=== PATIENT | female | born 1980 | race Two or more races ===

== ENCOUNTER 2023-10-27 07:35 | Outpatient (AMB) | payer OTHER, SELFPAY ==
--- NOTE | 2023-10-27 07:43 | MHC.PC.OV ---
Vital Signs 10/27/23 07:49 Height 5 ft 2 in Weight 197 lb BMI 36.0 BP 138/90 H Blood Pressure Location Lt brachial Position Sitting Pulse 79 Pulse Source Pulse Oximeter Pulse Oximetry (%) 99 Oxygen Delivery Method Room Air Intake Visit Reasons: New patient-requesting physical Intake Note: Pt is her today as a New Patient to est care/PE Allergies No Known Allergies Allergy (Verified 10/27/23 07:49) Tobacco use date assessed: 10/27/23 Dental Screening Dental Screen Date: 10/27/23 Did you have a dental visit in the last 12 months?: No Was dental information given to patient?: Patient has dentist HPI New patient-requesting physical HPI Details Pt presents for PE. Pt moved for [place] 5 years ago. She complains of feeling tired, overwhelmed at work at [employer], because of increased responsibilities since she moved to [facility]. patient reports sleeping only 3 hours at night going to bed at 11 at night and getting up at 2 a.m. for a morning shift. She complains of bilateral knee pain and stiffness and lower extremities fatigue when walking longer distance. Patient denies chronic back pain. Patient denies suicidal ideation and is not interested in taking medications for depression. PFSH Family History (Updated 10/27/23 @ 08:14 by Krysten Gage MD) Father Hx of CABG, Onset Age: 55 Maternal Grandfather Mental health disorder Maternal Grandmother Mental health disorder Mother Breast CA, Onset Age: 60 Social History (Updated 10/27/23 @ 08:15 by Krysten Gage MD) Household Members Other:: , works at [employer] Housing: Apartment Patient Tobacco Use Status: Never used Tobacco e-Cigarette/Vaping Use: Never Used service: No Current occupational status: employed Cognitive needs: No Hearing needs: No Vision needs: Yes Questionnaire PHQ-9 Over the last 2 weeks, how often have you been bothered by any of the following problems? 1. Little interest or pleasure in doing things: several days 2. Feeling down, depressed, or hopeless: more than half the days 3. Trouble falling or staying asleep, or sleeping too much: more than half the days 4. Feeling tired or having little energy: nearly every day 5. Poor appetite or overeating: more than half the days 6. Feeling bad about yourself - or that you are a failure or have let yourself or your family down: more than half the days 7. Trouble concentrating on things, such as reading the newspaper or watching television: more than half the days 8. Moving or speaking so slowly that other people could have noticed. Or the opposite - being so fidgety or restless that you have been moving around a lot more than usual: nearly every day 9. Thoughts that you would be better off or of hurting yourself in some way: not at all Total score: 17 Depression Screening Interpretation: Positive Depression Screening Done: Yes 24575 - PHQ-9 Billing: Yes Source: Developed by Drs. Neri Persaud, Sindhu Austin, Darrell Serrano and colleagues, with an educational carmen from [employer]. Thrive Questionnaire Date Thrive assessed: 10/27/23 I am a: Patient What is your living situation today?: I have a steady place to live Within the past 12 months, did the food you bought not last and you didn't have the money to get more?: Often true Within the past 12 months, did you worry whether your food would run out before you got money to buy more?: Often true Do you have trouble paying for medicines?: No Do you have trouble getting transportation to medical appointments?: No Do you have trouble paying your heating and electricity bill?: No Do you have trouble taking care of your child, family member or friend?: No Do you have trouble with day-to-day activities such as bathing, preparing meals, shopping, managing finances, etc.?: No Are you currently unemployed and looking for a job?: No Are you interested in more education?: No AUDIT C Alcohol Use Questionnaire (AUDIT-C) 1. How often do you have a drink containing alcohol?: Never Total Score: 0 CLAY-7 AMB Questionnaire CLAY-7 Date CLAY - 7 assessed: 10/27/23 Feeling nervous, anxious, or on edge: 3 = Nearly every day Not being able to stop or control worryin = Nearly every day Worrying too much about different things: 3 = Nearly every day Trouble relaxin = Nearly every day Being so restless that it is hard to sit still: 3 = Nearly every day Becoming easily annoyed or irritable: 3 = Nearly every day Feeling afraid as if something awful might happen: 3 = Nearly every day Total CLAY-7 score (0-4 normal; 5-9 mild; 10-14 moderate; 15-21 severe): 21 Source: Developed by Drs. Neri Persaud, Sindhu Austin, Darrell Serrano and colleagues, with an educational carmen from [employer]. Review of Systems Const All systems reviewed & are unremarkable except as noted in HPI and below Reports no additional complaints Eyes Reports no additional complaints ENT Reports no additional complaints Card Reports no additional complaints Resp Reports no additional complaints GI Reports no additional complaints Reports no additional complaints Physical exam (Primary Care) Vital Signs: Last Vital Signs Pulse 79 10/27/23 07:49 BP 136/90 H 10/27/23 07:49 Pulse Ox 99 10/27/23 07:49 Oxygen Delivery Method Room Air 10/27/23 07:49 BMI result Body Mass Index 36.0 Tobacco/Smoking Status: Tobacco use Status Tobacco use date assessed 10/27/23 10/27/23 07:54 Patient Tobacco Use Status Never used Tobacco 10/27/23 08:15 e-Cigarette/Vaping Use Never Used 10/27/23 08:15 PHQ-9: PHQ-9 Score PHQ-9: Total score 17 10/27/23 08:53 Depression Screening Interpretation: Positive Thrive Assessment: Date of Thrive Assessment Date Thrive assessed 10/27/23 10/27/23 08:53 Const General: no acute distress HENMT Head: Yes normal to inspection Ears: hearing grossly normal bilaterally Mouth: Normal oral and palatal mucosa present Eyes General: appearance normal, both eyes and all related structures Neck Neck: Yes no lymphadenopathy and Yes supple Resp Effort & Inspection: normal respiratory effort Auscultation: clear to auscultation bilaterally Cardio Rhythm: regular rhythm Heart sounds: S1 normal heart sound present and S2 normal heart sound present GI Inspection: Yes normal to inspection Palpation (GI): Soft to palpation Percussion: Yes normal to percussion Auscultation: normal bowel sounds Extrem Other: Slightly decreased range of motion and crepitus of both knees, no joint swelling erythema warmth General: Yes no clubbing, cyanosis or edema Assessment and Plan Assessment & Plan (1) Knee pain, bilateral: Code(s): M25.561 - Pain in right knee; M25.562 - Pain in left knee Plan: Obtain x-rays of both knees, patient was advised to increase physical activity (2) Annual physical exam: Code(s): Z00.00 - Encounter for general adult medical examination without abnormal findings Plan: Well-balanced diet regular physical activity discussed with the patient she will be referred for screening mammogram and have a fasting blood work (3) Glaucoma: Comment: ophthalmology Dr. Juan Daniel Quispe Code(s): H40.9 - Unspecified glaucoma (4) Fatigue: Code(s): R53.83 - Other fatigue Plan: Check blood work including TSH iron studies CBC comprehensive panel and lipid profile (5) Overweight: Code(s): E66.3 - Overweight Plan: Weight loss discussed with the patient (6) Hypertension: Code(s): I10 - Essential (primary) hypertension Plan: Start 5 mg of olmesartan follow-up in 6 weeks (7) Anxiety and depression: Code(s): F41.9 - Anxiety disorder, unspecified; F32.A - Depression, unspecified Plan: Stress management, sleep hygiene, increase regular physical activity discussed with the patient. She declined taking medications and will be referred to counseling (8) GERD (gastroesophageal reflux disease): Code(s): K21.9 - Gastro-esophageal reflux disease without esophagitis Plan: Anti GERD diet discussed with the pt, famotidine will be tried for 1 month Orders: Orders Comprehensive Bliss. Panel Fast Today H40.9 - Unspecified glaucoma, Z00.00 - Encounter for general adult medical examination without abnormal findings IRON PROFILE Today H40.9 - Unspecified glaucoma, Z00.00 - Encounter for general adult medical examination without abnormal findings MM screening mammo BI Today M25.561 - Pain in right knee, M25.562 - Pain in left knee, Z12.31 - Encounter for screening mammogram for malignant neoplasm of breast Complete Blood Count Auto Diff Today H40.9 - Unspecified glaucoma, Z00.00 - Encounter for general adult medical examination without abnormal findings Lipid Panel Today H40.9 - Unspecified glaucoma, Z00.00 - Encounter for general adult medical examination without abnormal findings TSH reflex Free T4 Today H40.9 - Unspecified glaucoma, Z00.00 - Encounter for general adult medical examination without abnormal findings C Reactive Protein Today H40.9 - Unspecified glaucoma, Z00.00 - Encounter for general adult medical examination without abnormal findings Rheumatoid Factor Today H40.9 - Unspecified glaucoma, Z00.00 - Encounter for general adult medical examination without abnormal findings Medications: New olmesartan 5 mg PO DAILY 90 tabs 0RF famotidine (Pepcid) 20 mg PO DAILY 90 tabs 0RF Coding Level of Care Code New Pt Prev Care 40-64y(58745) Diagnoses Knee pain, bilateral M25.561; M25.562 Annual physical exam Z00.00 Glaucoma H40.9 Fatigue R53.83 Overweight E66.3 Hypertension I10 Anxiety and depression F41.9; F32.A GERD (gastroesophageal reflux disease) K21.9
[2023-10-27 07:49] VITALS: BP 138/90; PULSE 79; O2SAT 99; BMI 36.0
== END 2023-10-27 08:54 | disposition home or self-care (01) ==
PROVIDERS: PCP Internal Medicine; Visit Provider Internal Medicine
DX: M25.561 Pain in right knee (principal); M25.562 Pain in left knee; Z00.00 Encounter for general adult medical examination without abnormal findings; H40.9 Unspecified glaucoma; R53.83 Other fatigue; E66.3 Overweight; I10 Essential (primary) hypertension; F41.9 Anxiety disorder, unspecified; F32.A Depression, unspecified; K21.9 Gastro-esophageal reflux disease without esophagitis
CPT/HCPCS: 99386

== ENCOUNTER 2023-10-27 08:56 | Outpatient (REF) | payer OTHER, SELFPAY ==
--- NOTE | ~2023-10-27 | XR_ITS ---
EXAMINATION: XR KNEE, RIGHT CLINICAL INFORMATION: Right knee pain COMPARISON: None available. TECHNIQUE: AP and lateral views of the left knee. FINDINGS: BONES: Bony structures are intact. Small osteophytes are seen in the right lateral femoral condyle, right patellar articular border. Sclerotic bone island is seen in proximal right tibial shaft. There is no focal bone destruction or periosteal reaction seen. JOINTS: Alignment of joints is normal. There is severe decrease in medial compartment right knee joint space. SOFT TISSUE: Right suprapatellar fat pad shows increase in density. No radiopaque foreign body or abnormal air collection is seen. XR/XR knee RT 2V IMPRESSION: 1. Tricompartmental osteoarthritis of right knee, most severe in the medial right tibiofemoral joint is seen. 2. Right knee effusion is present. 3. No fracture or dislocation or signs of osteomyelitis are found.
--- NOTE | ~2023-10-27 | XR_ITS ---
EXAMINATION: XR KNEE, LEFT CLINICAL INFORMATION: Left knee pain COMPARISON: None available. TECHNIQUE: AP and lateral views of the left knee. FINDINGS: BONES: Bony structures are intact. Small sharp osteophytes are seen in the left medial and lateral tibial plateaus, superior left patella. Anterior suprapatellar traction spur is present. There is no focal bone destruction or periosteal reaction seen. JOINTS: Alignment of joints is normal. There is severe decrease in medial compartment left knee joint space. SOFT TISSUE: Left suprapatellar fat pad shows increase in density. No radiopaque foreign body or abnormal air collection is seen. XR/XR knee LT 2V IMPRESSION: 1. Tricompartmental osteoarthritis of left knee, most severe in the medial left tibiofemoral joint is seen. 2. Left knee effusion is present. 3. No fracture or dislocation or signs of osteomyelitis are found.
[2023-10-27 11:23] LABS: MANUAL DIFF FLAG NO
[2023-10-27 11:32] LABS: Basophils Absolute Auto 0.1 X10*3/uL (0.0-0.2); Basophils Percent Auto 0.5 % (0-2); Eosinophils Absolute Auto 0.2 X10*3/uL (0.0-0.4); Eosinophils Percent Auto 1.7 % (0-4); Hematocrit 47.4 % (37.0-47.0); Hemoglobin 15.5 g/dl (12.0-16.0); Imm Gran Abs Auto 0.05 X10*3/uL (0.00-0.03); Imm Gran Pct Auto 0.5 % (0.0-0.4); Lymphocytes Absolute Auto 3.3 X10*3/uL (1.2-4.9); Lymphocytes Percent Auto 31.7 % (20-40); Mean Corpuscular HGB Conc 32.7 g/dl (31.0-35.0); Mean Corpuscular Hemoglobin 27.8 pg (27.0-33.0); Mean Corpuscular Volume 85.1 fL (80.0-98.0); Mean Platelet Volume 10.9 fL (9.4-12.3); Monocytes Absolute Auto 0.6 X10*3/uL (0.1-1.2); Neutrophils Absolute Auto 6.1 x10*3/uL (2.0-8.3); Neutrophils Percent Auto 59.6 % (45-73); Platelet Count 350 X10*3/uL (160-400); Red Blood Count 5.57 X10*6/uL (4.20-5.50); Red Cell Distribution Width 12.4 % (11.0-16.0); White Blood Count 10.3 X10*3/uL (4.8-10.8)
[2023-10-27 11:46] LABS: Rheumatoid Factor < 13.0 IU/mL (<15.0)
[2023-10-27 12:04] LABS: Alanine Aminotransferase 20 U/L (0-31); Albumin Level 4.1 g/dL (3.5-5.0); Alkaline Phosphatase 105 U/L (39-117); Anion Gap 17 (12-20); Aspartate Amino Transferase 19 U/L (5-31); Bilirubin Total 0.4 mg/dL (0.0-1.0); Blood Urea Nitrogen 12 mg/dL (9-16); C Reactive Protein 0.97 mg/dL (< or = 0.50); Calcium 9.9 mg/dL (8.4-10.2); Carbon Dioxide 24 mmol/L (22-29); Chloride 102 mmol/L (96-108); Cholesterol 179 mg/dL (<200); Estimated Glomerular Filt Rate > 60; Glucose Fasting 264 mg/dL (60-99); HDL Cholesterol 43 mg/dL (>40); Iron 93 mcg/dL (30-160); LDL Cholesterol Calculated 118 mg/dL (<100); Percent Iron Saturation 33 % (15-50); Potassium 4.8 mmol/L (3.3-5.1); Sodium 138 mmol/L (135-145); Total Iron Binding Capacity 278 mcg/dL (228-428); Total Protein 8.7 g/dL (6.5-8.0); Triglycerides 94 mg/dL (<150); Unsaturated Iron Binding 185 ug/dL
[2023-10-27 12:24] LABS: TSH reflex Free T4 0.75 uIU/mL (0.32-4.0)
== END 2023-10-27 08:57 | disposition home or self-care (01) ==
LOC: HO.HMGCX 08:56
PROVIDERS: PCP Internal Medicine; Visit Provider Internal Medicine
DX: Z00.00 Encounter for general adult medical examination without abnormal findings (principal); M17.0 Bilateral primary osteoarthritis of knee
CPT/HCPCS: 36415; 73560; 80053; 80061; 83540; 84443; 85025; 86140; 86431

== ENCOUNTER 2023-11-08 08:02 | Outpatient (REF) | payer OTHER, SELFPAY ==
[2023-11-08 12:05] LABS: Glucose Fasting 254 mg/dL (60-99)
[2023-11-08 12:22] LABS: Estimated Average Glucose 266 mg/dL; Hemoglobin A1c % 10.9 % (<6.0)
== END 2023-11-08 08:03 | disposition home or self-care (01) ==
LOC: HO.HMGCLDS 08:02
PROVIDERS: PCP Internal Medicine; Visit Provider Internal Medicine
DX: R73.9 Hyperglycemia, unspecified (principal)
CPT/HCPCS: 36415; 82947; 83036

== ENCOUNTER 2023-11-28 08:10 | Outpatient (AMB) | payer OTHER, SELFPAY ==
[2023-11-28 08:15] VITALS: BP 134/82; PULSE 82; TEMP 36.6; BMI 36.0
--- NOTE | 2023-11-28 08:15 | AM.OFFWIN_ITS ---
Intake Vital Signs 11/28/23 08:15 11/28/23 08:44 Height 5 ft 2 in Weight 197 lb BMI 36.0 BP 134/82 Blood Pressure Location Rt brachial Position Sitting Pulse 82 Pulse Source Pulse Oximeter Temp 97.9 F Temp Source Oral Pulse Oximetry (%) 95 Oxygen Delivery Method Room Air Intake Visit Reasons: EP,+covid (11/26/22) fever ([phone]) Intake Note: pt is here for c/o body aches, fever, difficulty breathing since monday, covid positive on 11/26/23 unable to get 02 stats due to nails Patient Tobacco Use Status: Never used Tobacco Allergies No Known Allergies Allergy (Verified 11/28/23 08:46) Medication List - Last Reconciled 11/28/23 by KELSIE Velásquez blood sugar diagnostic ([employer] Verio test strips) Test blood sugar twice a day blood-glucose meter ([employer] Verio Flex Meter) As directed famotidine (Pepcid) 20 mg PO DAILY lancets ([employer] Plus Lancet) test blood sugar twice a day metformin ER 750 mg PO DAILY olmesartan 5 mg PO DAILY Do you need a note to return to daycare/school/sports/work: Yes HPI HPI Comments History of Present Illness Details Patient is a 43-year-old female in today for sick visit. She states that 2 days prior to visit she tested positive within at home COVID test. She offer symptoms of sore throat, dry cough, headache, and malaise. She has used [id number] Mucinex with some affect. Denies chest pain, shortness a breath, dizziness, numbness, nausea, vomiting, diarrhea. PFSH Family History (Updated 10/27/23 @ 08:14 by Krysten Gage MD) Father Hx of CABG, Onset Age: 55 Maternal Grandfather Mental health disorder Maternal Grandmother Mental health disorder Mother Breast CA, Onset Age: 60 Social History (Updated 10/27/23 @ 08:15 by Krysten Gage MD) Household Members Other:: , works at [employer] Housing: Apartment Patient Tobacco Use Status: Never used Tobacco e-Cigarette/Vaping Use: Never Used service: No Current occupational status: employed Cognitive needs: No Hearing needs: No Vision needs: Yes Review of Systems Const Details: Constitutional : No Weight loss, No Fever, Admits Chills, No Fatigue, Admits some Malaise ENT/Mouth : Admits sore throat, No Rhinorrhea Eyes: No Eye Pain, No Swelling, No Redness Cardiovascular : No Chest Pain, No SOB, No Dyspnea on Exertion, No Orthopnea, No Edema, No Palpitations Respiratory : Admits Cough, No Sputum, No Wheezing Gastrointestinal : No Nausea, No Vomiting, No Diarrhea, No Constipation, No abdominal Pain, No Hematochezia, No Melena Neuro : No Weakness, No Numbness, No Dizziness, No Headache Psych : No Anxiety/Panic, No Depression All other systems reviewed and are negative Physical Exam Vital Signs: BMI result Body Mass Index 36.0 Vital signs have been reviewed stable Const Other: Appearance: Alert.? Oriented X3.? No acute distress.? Head: Normocephalic, atraumatic, no step-offs or deformities Eyes: Pupils equal, round and reactive to light.? ENT: Pharynx normal.?TM itnact and pearly finley. Neck: Normal inspection.? Neck supple.? CVS: Normal heart rate and rhythm.? Pulses normal.? Respiratory: No respiratory distress.? Breath sounds normal.? Abdomen: Soft and nontender.? Skin: Skin warm and dry.? Normal skin color.? Normal skin turgor.? Neuro: Oriented X 3.? No motor deficit.? No sensory deficit. CN 2-12 intact Assessment & Plan Assessment & Plan (1) Upper respiratory infection: Comment: Will give patient prednisone, albuterol and benzonatate to be taken as prescribed. Patient has been educated on side effects of these medication. Patient has been educated on signs of worsening symptoms and when to return to the walk-in or when to present to the ER. Code(s): J06.9 - Acute upper respiratory infection, unspecified Qualifiers: URI type: unspecified viral URI Qualified Code(s): J06.9 - Acute upper respiratory infection, unspecified Plan: Take your medications as prescribed. If you were prescribed antibiotics today, it is important that you take your medication to their entirety, do not skip any doses, do not finish them early. Follow-up with your primary care provider this week. Return to the emergency department with new or worsening symptoms. Such as fevers, chills, chest pain, shortness of breath, nausea, vomiting, dizziness, headache, vision changes, lethargy In case of emergency call 911 Plan Follow-up with PCP Coding Level of Care Code Est Pt Level 2 (73613) Diagnoses Viral upper respiratory tract infection J06.9 URI type: unspecified viral URI Time Spent (min) 20
[2023-11-28 08:44] VITALS: O2SAT 95
== END 2023-11-28 09:49 | disposition home or self-care (01) ==
PROVIDERS: PCP Internal Medicine; Visit Provider Nurse Practitioner Primary Care
DX: J06.9 Acute upper respiratory infection, unspecified (principal)
CPT/HCPCS: 99213

== ENCOUNTER 2023-12-08 10:01 | Outpatient (AMB) | payer OTHER, SELFPAY ==
[2023-12-08 10:05] VITALS: BP 124/78; PULSE 90; TEMP 36.4; O2SAT 99; BMI 35.5
--- NOTE | 2023-12-08 10:05 | A.OFFPC_ITS ---
Vital Signs 12/08/23 10:05 Height 5 ft 2 in Weight 194 lb BMI 35.5 BP 124/78 Blood Pressure Location Rt brachial Position Sitting Pulse 90 Pulse Source Pulse Oximeter Temp 97.6 F Temp Source Oral Pulse Oximetry (%) 99 Oxygen Delivery Method Room Air Intake Visit Reasons: 6 week follow up Intake Note: Pt is here today for 6 weeks follow up visit. Pt states that she has been sick. Pt c/o nausea, vomiting diarrhea, chills and weakness since yesterday. Allergies metformin Adverse Reaction (Intermediate, Verified 12/08/23 11:13) Abdominal Pain Medication List - Last Reconciled 12/08/23 by Krysten Gage MD albuterol sulfate 90 mcg/actuation 1 puff inhalation QID PRN benzonatate 100 mg PO BID PRN blood sugar diagnostic (StylendaTouch Verio test strips) Test blood sugar twice a day blood-glucose meter ([employer] Verio Flex Meter) As directed famotidine (Pepcid) 20 mg PO DAILY lancets (StylendaTouch Delica Plus Lancet) test blood sugar twice a day metformin ER 750 mg PO DAILY olmesartan 5 mg PO DAILY Tobacco use date assessed: 12/08/23 Dental Screening Dental Screen Date: 12/08/23 Did you have a dental visit in the last 12 months?: No Did you have a dental problem in the last 6 months where you did not have access to dental care?: No Was dental information given to patient?: Patient declined HPI 6 week follow up HPI Details Pt presents for diarrhea, nausea, vomiting, chills for 2 days. Patient reports high glucose readings over 300 for the last 2 days.. Patient was seen in in walk in last week with URI and was prescribed prednisone for dry cough. Patient noticed a very high glucose readings on prednisone and stopped taking it. She has been taking metformin but reports intermittent diarrhea and stomach upset. Patient has been following ADA diet and has been working with the nurse navigator to learn about diabetes. [facility] Family History (Updated 10/27/23 @ 08:14 by Krysten Gage MD) Father Hx of CABG, Onset Age: 55 Maternal Grandfather Mental health disorder Maternal Grandmother Mental health disorder Mother Breast CA, Onset Age: 60 Social History (Updated 10/27/23 @ 08:15 by Krysten Gage MD) Household Members Other:: , works at [employer] Housing: Apartment Patient Tobacco Use Status: Never used Tobacco e-Cigarette/Vaping Use: Never Used service: No Current occupational status: employed Cognitive needs: No Hearing needs: No Vision needs: Yes Questionnaire PHQ-9 Over the last 2 weeks, how often have you been bothered by any of the following problems? 1. Little interest or pleasure in doing things: more than half the days 2. Feeling down, depressed, or hopeless: more than half the days 3. Trouble falling or staying asleep, or sleeping too much: several days 4. Feeling tired or having little energy: several days 5. Poor appetite or overeating: more than half the days 6. Feeling bad about yourself - or that you are a failure or have let yourself or your family down: more than half the days 7. Trouble concentrating on things, such as reading the newspaper or watching television: more than half the days 8. Moving or speaking so slowly that other people could have noticed. Or the opposite - being so fidgety or restless that you have been moving around a lot more than usual: more than half the days 9. Thoughts that you would be better off or of hurting yourself in some way: not at all Total score: 14 Depression Screening Interpretation: Positive Depression Screening Done: Yes Source: Developed by Drs. Neri Persaud, Sindhu Austin, Darrell Serrano and colleagues, with an educational carmen from [employer]. Thrive Questionnaire Date Thrive assessed: 12/08/23 I am a: Patient What is your living situation today?: I have a steady place to live Within the past 12 months, did the food you bought not last and you didn't have the money to get more?: Sometimes True Within the past 12 months, did you worry whether your food would run out before you got money to buy more?: Often true Do you have trouble paying for medicines?: Yes Do you have trouble getting transportation to medical appointments?: No Do you have trouble paying your heating and electricity bill?: Yes Do you have trouble taking care of your child, family member or friend?: No Do you have trouble with day-to-day activities such as bathing, preparing meals, shopping, managing finances, etc.?: No Are you currently unemployed and looking for a job?: No Are you interested in more education?: No THRIVE Score: 3 AUDIT C Alcohol Use Questionnaire (AUDIT-C) 1. How often do you have a drink containing alcohol?: Never 3. How often do you have six or more drinks on one occasion?: Never Total Score: 0 CLAY-7 AMB Questionnaire CLAY-7 Date CLAY - 7 assessed: 12/08/23 Feeling nervous, anxious, or on edge: 2 = More than half the days Not being able to stop or control worryin = More than half the days Worrying too much about different things: 2 = More than half the days Trouble relaxin = More than half the days Being so restless that it is hard to sit still: 1 = Several days Becoming easily annoyed or irritable: 1 = Several days Feeling afraid as if something awful might happen: 1 = Several days Total CLAY-7 score (0-4 normal; 5-9 mild; 10-14 moderate; 15-21 severe): 11 Source: Developed by Drs. Neri Persaud, Sindhu Austin, Darrell Serrano and colleagues, with an educational carmen from [employer]. Review of Systems Const All systems reviewed & are unremarkable except as noted in HPI and below Reports no additional complaints Eyes Reports no additional complaints ENT Reports no additional complaints Card Reports no additional complaints Resp Reports no additional complaints GI Reports no additional complaints Reports no additional complaints Physical exam (Primary Care) Vital Signs: Last Vital Signs Temp 97.6 F 12/08/23 10:05 Pulse 90 12/08/23 10:05 BP 124/78 12/08/23 10:05 Pulse Ox 99 12/08/23 10:05 Oxygen Delivery Method Room Air 12/08/23 10:05 BMI result Body Mass Index 35.5 Tobacco/Smoking Status: Tobacco use Status Tobacco use date assessed 12/08/23 12/08/23 10:13 Patient Tobacco Use Status Never used Tobacco 12/08/23 10:13 e-Cigarette/Vaping Use Never Used 12/08/23 10:06 Depression Screening Interpretation: Positive Thrive Assessment: Date of Thrive Assessment Date Thrive assessed 10/27/23 12/08/23 10:06 Const General: no acute distress HENMT Head: Yes normal to inspection Neck Neck: Yes no lymphadenopathy Resp Effort & Inspection: normal respiratory effort Auscultation: clear to auscultation bilaterally Cardio Rhythm: regular rhythm Heart sounds: S1 normal heart sound present and S2 normal heart sound present GI Inspection: Yes normal to inspection Palpation (GI): Soft to palpation, Tenderness to palpation present (GI) in the epigastrum and No Rebound tenderness present Percussion: Yes normal to percussion Auscultation: normal bowel sounds Assessment and Plan Assessment & Plan (1) DM type 2 (diabetes mellitus, type 2): Comment: Patient can not tolerate metformin Code(s): E11.9 - Type 2 diabetes mellitus without complications Plan: Patient was advised to stop metformin and start 10 units of Lantus. ADA diet and monitor her blood glucose at least 3 times a day with Maggie 3 was recommended. Patient will report her readings within the next week for any insulin adjustment as necessary. She will follow-up with the nurse navigator. Patient will return in 1 month (2) Diarrhea: Code(s): R19.7 - Diarrhea, unspecified Plan: Supportive care discussed with the patient. Check basic metabolic panel and CBC Orders: Orders Basic Metabolic Panel Today E11.9 - Type 2 diabetes mellitus without complications Complete Blood Count Auto Diff Today E11.9 - Type 2 diabetes mellitus without complications Medications: New blood-glucose sensor (FreeStyle Maggie 3 Sensor device) As directed 2 ea 4RF Lantus Solostar U-100 Insulin (insulin glargine) 10 units (0.1 mL) subcut QPM 15 mL 3RF NS Discontinued blood-glucose meter (OneTouch Verio Flex Meter) Discontinued Reason: Doctor's Order As directed 1 ea 0RF E11.9 - Type 2 diabetes mellitus without complications blood sugar diagnostic (OneTouch Verio test strips) Discontinued Reason: Doctor's Order Test blood sugar twice a day 200 ea 3RF E11.9 - Type 2 diabetes mellitus without complications prednisone Discontinued Reason: Doctor's Order 20 mg PO BID 10 tabs 0RF Coding Level of Care Code Est Pt Level 3 (52710) Diagnoses DM type 2 (diabetes mellitus, type 2) E11.9 Diarrhea R19.7
== END 2023-12-08 12:10 | disposition home or self-care (01) ==
PROVIDERS: PCP Internal Medicine; Visit Provider Internal Medicine
DX: E11.9 Type 2 diabetes mellitus without complications (principal); R19.7 Diarrhea, unspecified
CPT/HCPCS: 99213

== ENCOUNTER 2023-12-08 11:10 | Outpatient (REF) | payer OTHER, SELFPAY ==
[2023-12-08 13:15] LABS: MANUAL DIFF FLAG NO
[2023-12-08 13:45] LABS: Basophils Percent Auto 0.3 % (0-2); Eosinophils Absolute Auto 0.2 X10*3/uL (0.0-0.4); Eosinophils Percent Auto 1.7 % (0-4); Hemoglobin 15.2 g/dl (12.0-16.0); Imm Gran Abs Auto 0.05 X10*3/uL (0.00-0.03); Imm Gran Pct Auto 0.4 % (0.0-0.4); Lymphocytes Absolute Auto 3.6 X10*3/uL (1.2-4.9); Mean Corpuscular HGB Conc 32.3 g/dl (31.0-35.0); Mean Corpuscular Hemoglobin 27.5 pg (27.0-33.0); Mean Corpuscular Volume 85.1 fL (80.0-98.0); Mean Platelet Volume 10.9 fL (9.4-12.3); Monocytes Absolute Auto 0.9 X10*3/uL (0.1-1.2); Monocytes Percent Auto 6.8 % (2-11); Neutrophils Absolute Auto 7.7 x10*3/uL (2.0-8.3); Neutrophils Percent Auto 61.8 % (45-73); Platelet Count 369 X10*3/uL (160-400); Red Blood Count 5.52 X10*6/uL (4.20-5.50); Red Cell Distribution Width 12.5 % (11.0-16.0); White Blood Count 12.5 X10*3/uL (4.8-10.8)
[2023-12-08 14:16] LABS: Anion Gap 15 (12-20); Blood Urea Nitrogen 11 mg/dL (9-16); Calcium 9.3 mg/dL (8.4-10.2); Carbon Dioxide 25 mmol/L (22-29); Chloride 100 mmol/L (96-108); Estimated Glomerular Filt Rate > 60; Glucose Random 257 mg/dL (60-115); Potassium 3.4 mmol/L (3.3-5.1); Sodium 137 mmol/L (135-145)
== END 2023-12-08 11:11 | disposition home or self-care (01) ==
LOC: HO.HMGCLDS 11:10
PROVIDERS: PCP Internal Medicine; Visit Provider Internal Medicine
DX: E11.9 Type 2 diabetes mellitus without complications (principal)
CPT/HCPCS: 36415; 80048; 85025

== ENCOUNTER 2024-01-04 13:22 | Outpatient (AMB) | payer OTHER, SELFPAY ==
[2024-01-04 13:45] VITALS: BP 126/70; PULSE 72; O2SAT 97; BMI 35.7
--- NOTE | 2024-01-04 13:45 | MHC.PC.OV ---
Vital Signs 01/04/24 13:45 Height 5 ft 2 in Weight 195 lb BMI 35.7 BP 126/70 Blood Pressure Location Rt brachial Position Sitting Pulse 72 Pulse Source Pulse Oximeter Pulse Oximetry (%) 97 Oxygen Delivery Method Room Air Intake Visit Reasons: 1 month follow up DM Intake Note: Pt is here today for 1 month follow up visit on DM. Allergies metformin Adverse Reaction (Intermediate, Verified 01/04/24 13:53) Abdominal Pain Medication List - Last Reconciled 01/04/24 by Krysten Gage MD albuterol sulfate 90 mcg/actuation 1 puff inhalation QID PRN benzonatate 100 mg PO BID PRN blood-glucose sensor (FreeStyle Maggie 3 Sensor device) As directed famotidine (Pepcid) 20 mg PO DAILY lancets (Results ScorecardTouch Delica Plus Lancet) test blood sugar twice a day Lantus Solostar U-100 Insulin (insulin glargine) 10 units (0.1 mL) subcut QPM NS metformin ER 750 mg PO DAILY olmesartan 5 mg PO DAILY OneTouch Ultra Test (blood sugar diagnostic) tid NS pen needle, diabetic Use to inject insulin once a day Tobacco use date assessed: 12/08/23 HPI 1 month follow up DM HPI Details Patient presents for the follow-up of type 2 diabetes. She has been monitoring her blood glucose 3 times a day before breakfast between 150-202 hours after a meal over 200s. She has been following ADA diet to best of her efford. Patient does not exercise because of chronic bilateral knee pain and stiffness. She took 10 units of Lantus but developed low blood glucose and has not been taking insulin. Has been tolerating metformin XR 750 mg daily without side effects. PFSH Family History Father Hx of CABG, Onset Age: 55 Maternal Grandfather Mental health disorder Maternal Grandmother Mental health disorder Mother Breast CA, Onset Age: 60 Social History Household Members Other:: , works at [employer] Housing: Apartment Patient Tobacco Use Status: Never used Tobacco e-Cigarette/Vaping Use: Never Used service: No Current occupational status: employed Cognitive needs: No Hearing needs: No Vision needs: Yes Questionnaire Thrive Questionnaire Date Thrive assessed: 12/08/23 CLAY-7 AMB Questionnaire CLAY-7 Date CLAY - 7 assessed: 12/08/23 Source: Developed by Drs. Neri Persaud, Sindhu Austin, Darrell Serrano and colleagues, with an educational carmen from [employer]. Review of Systems Const All systems reviewed & are unremarkable except as noted in HPI and below Reports no additional complaints Eyes Reports no additional complaints ENT Reports no additional complaints Card Reports no additional complaints Resp Reports no additional complaints GI Reports no additional complaints Reports no additional complaints Physical exam (Primary Care) Vital Signs: Last Vital Signs Pulse 72 01/04/24 13:45 BP 126/70 01/04/24 13:45 Pulse Ox 97 01/04/24 13:45 Oxygen Delivery Method Room Air 01/04/24 13:45 BMI result Body Mass Index 35.7 Tobacco/Smoking Status: Tobacco use Status Tobacco use date assessed 12/08/23 01/04/24 13:56 Patient Tobacco Use Status Never used Tobacco 01/04/24 13:56 e-Cigarette/Vaping Use Never Used 01/04/24 13:56 Thrive Assessment: Date of Thrive Assessment Date Thrive assessed 12/08/23 01/04/24 13:56 Const General: no acute distress HENMT Head: Yes normal to inspection Ears: hearing grossly normal bilaterally Face and sinus: Yes normal facial exam Mouth: Normal oral and palatal mucosa present Eyes General: appearance normal, both eyes and all related structures Neck Neck: Yes no lymphadenopathy and Yes supple Resp Effort & Inspection: normal respiratory effort Auscultation: clear to auscultation bilaterally Cardio Rhythm: regular rhythm Heart sounds: S1 normal heart sound present and S2 normal heart sound present GI Inspection: Yes normal to inspection Palpation (GI): Soft to palpation Percussion: Yes normal to percussion Auscultation: normal bowel sounds Extrem Other: Decreased range of motion and stiffness on both knees right more than left no joint tenderness erythema or warmth Assessment and Plan Assessment & Plan (1) Bilateral primary osteoarthritis of knee: Comment: X-ray showed advanced osteoarthritis of both knees Code(s): M17.0 - Bilateral primary osteoarthritis of knee Plan: Patient was advised to try physical therapy and stationary bike exercises, she will be referred to rod bending machine operator for Synvisc injections (2) DM type 2 (diabetes mellitus, type 2): Code(s): E11.9 - Type 2 diabetes mellitus without complications Plan: ADA diet increase physical activity weight loss discussed with the patient. She will increase metformin to 750 mg twice a day and try 6 units of Lantus insulin. Patient was advised to continue monitoring her blood glucose at least 3 times a day and she will follow-up in 1 month. Patient will be referred to call center rn (3) Hypertension: Code(s): I10 - Essential (primary) hypertension Plan: Continue olmesartan (4) Overweight: Code(s): E66.3 - Overweight Plan: Weight loss discussed with the patient Orders: Orders PT Evaluation and Treatment Today M17.0 - Bilateral primary osteoarthritis of knee Complete Blood Count Auto Diff 1 Month E11.9 - Type 2 diabetes mellitus without complications, I10 - Essential (primary) hypertension Comprehensive [place]. Panel Fast 1 Month E11.9 - Type 2 diabetes mellitus without complications, I10 - Essential (primary) hypertension Hemoglobin A1c 1 Month E11.9 - Type 2 diabetes mellitus without complications, I10 - Essential (primary) hypertension Referrals Administrative Assistant Front Desk Nutrition Referral E11.9 - Type 2 diabetes mellitus without complications Rheumatology Referral M17.0 - Bilateral primary osteoarthritis of knee Medications: New OneTouch Ultra Test (blood sugar diagnostic) tid 100 ea 3RF NS Refilled metformin ER 750 mg PO DAILY 180 tabs 1RF olmesartan 5 mg PO DAILY 90 tabs 3RF Discontinued blood-glucose sensor (FreeStyle Maggie 3 Sensor device) Discontinued Reason: Doctor's Order As directed 2 ea 4RF benzonatate Discontinued Reason: Doctor's Order 100 mg PO BID PRN 30 caps 0RF cough Coding Level of Care Code Est Pt Level 4 (09520) Diagnoses Bilateral primary osteoarthritis of knee M17.0 DM type 2 (diabetes mellitus, type 2) E11.9 Hypertension I10 Overweight E66.3
== END 2024-01-04 15:06 | disposition home or self-care (01) ==
PROVIDERS: PCP Internal Medicine; Visit Provider Internal Medicine
DX: M17.0 Bilateral primary osteoarthritis of knee (principal); E11.9 Type 2 diabetes mellitus without complications; I10 Essential (primary) hypertension; E66.3 Overweight
CPT/HCPCS: 99214

== ENCOUNTER 2024-01-04 15:27 | Outpatient (REF) | payer OTHER, SELFPAY ==
--- NOTE | ~2024-01-04 | MM_ITS ---
EXAMINATION: MM SCREENING DIGITAL BREAST TOMOSYNTHESIS, BILATERAL CLINICAL INFORMATION: Screening. Asymptomatic. COMPARISON: Mammography: This is a baseline mammogram TECHNIQUE: Digital breast tomosynthesis is performed in both the craniocaudal and mediolateral oblique views along with computer-aided detection (CAD). Synthesized 2D images are generated from the tomosynthesis. FINDINGS: There are scattered areas of fibroglandular density (ACR BI-RADS breast composition Category b). There are no significant masses, abnormal calcifications, or other abnormalities. MM/MM tomosynthesis screening BI IMPRESSION: No mammographic evidence of malignancy. ASSESSMENT: BI-RADS BI-RADS 1 - Negative RECOMMENDATION: Routine annual mammography screening. 1 year F/U This examination should not preclude the clinical evaluation of a suspicious palpable abnormality. This patient's information was entered into a reminder system with a target due date for their next mammogram.
== END 2024-01-04 15:28 | disposition home or self-care (01) ==
LOC: HO.MAMMO 15:27
PROVIDERS: PCP Internal Medicine; Visit Provider Internal Medicine
DX: Z12.31 Encounter for screening mammogram for malignant neoplasm of breast (principal)
CPT/HCPCS: 77063; 77067

== ENCOUNTER → 2024-01-04 15:45 | Outpatient (BNV) | payer OTHER, SELFPAY | PROVIDERS: PCP Internal Medicine; Visit Provider Radiology Diagnostic Radiology | DX: Z12.31 Encounter for screening mammogram for malignant neoplasm of breast (principal) | CPT/HCPCS: 77063; 77067 ==

== ENCOUNTER 2024-02-08 09:39 | Outpatient (AMB) | payer OTHER, SELFPAY ==
--- NOTE | 2024-02-08 09:46 | A.OFFVIS_ITS ---
Intake VS Expanded 02/08/24 09:47 02/19/24 20:51 Height 5 ft 2 in 5 ft 2 in Weight 190 lb 11.198 oz 191 lb BMI 34.9 34.9 Intake Visit Reasons: T2DM/CONFIRMED Allergies metformin Adverse Reaction (Intermediate, Verified 02/15/24 11:49) Abdominal Pain HPI Nutrition Presentation Details Pt presents for MNT for T2DM. Pt was referred by Dr. Gage, primary care provider Pt presents with during this appointment Pt reports following a strict diet when initially diagnosed and now finds herself liberalizing the diet. EFZ-Iasikgu-Om.Jeor Equation Height 5 ft 2 in Weight 191 lb Resting Metabolic Rate 1467.35 Calculated Activity Level Sedentary Calories Needed to Maintain Weight 1760.82 Diagnosis Nutrition problem #1 food nutri know defi As related to (etiology) #1 diagnosis As evidenced by (sign/symptom) #1 knowledge deficit of diet Most Recent Diabetes Results: Creatinine 0.74 mg/dL (0.5-1.4) 02/08/24 Blood Urea Nitrogen 14 mg/dL (9-16) 02/08/24 Sodium 137 mmol/L (135-145) 02/08/24 Potassium 3.9 mmol/L (3.3-5.1) 02/08/24 Chloride 105 mmol/L (96-108) 02/08/24 Carbon Dioxide 26 mmol/L (22-29) 02/08/24 Calcium 9.6 mg/dL (8.4-10.2) 02/08/24 AST 19 U/L (5-31) 02/08/24 ALT 19 U/L (0-31) 02/08/24 Total Protein 8.2 g/dL (6.5-8.0) H 02/08/24 Albumin 4.0 g/dL (3.5-5.0) 02/08/24 PFSH Medical History Bilateral foot pain Bilateral swelling of feet Bilateral hand pain Swelling of hand Surgical History No pertinent past surgical history Family History Father Hx of CABG, Onset Age: 55 Maternal Grandfather Mental health disorder Maternal Grandmother Mental health disorder Mother Breast CA, Onset Age: 60 Other Hx of autoimmune disorder Social History Household Members Other:: , works at [employer] Housing: Apartment Patient Tobacco Use Status: Never used Tobacco e-Cigarette/Vaping Use: Never Used service: No Current occupational status: employed Current occupation: [employer] Cognitive needs: No Hearing needs: No Vision needs: Yes Assessment & Plan Assessment & Plan (1) DM type 2 (diabetes mellitus, type 2): Code(s): E11.9 - Type 2 diabetes mellitus without complications Plan: Wt: 87 Kg ( 01/2024 ) Est kcal needs as per MSJ: 1700 (40% carb, 30% protein/fat) Est fluid needs as per 25-30 ml/d: 2600 Est prot per day as per 1 g/kg bw: 87 Recommend fiber intake : 8-10 g per day and gradually increase to 25-28 g per day for women and 35-38 g for men or as tolerated Recommend sodium intake per day : less than 2000 mg Educated patient on: ( R = reviewed V = verbalizes understanding N/R = needs review N/A = not applicable * Food sources of carbohydrate, adequate serving sizes and its role in various health conditions: R * Differences between complex carbohydrates a simple carbohydrates, role of fiber in diet: R * Lean protein sources of foods: R V * Differences between types of fats and role in diet (mono on saturated fat fatty acids, saturated fatty acids, trans fats): N/R * Food sources of sodium in salt and healthy modifications for heart health in kidney health: NR * Vitamins and minerals: N/R * Healthy plate method concept: R V * Physical activity: Benefits a precaution: R V * Hypoglycemia protocol (rule of 15): R * Dietary prevention of Hyperglycemia: R Patient Instructions: Reduce your total carb following healthy plat method to 45-60 g at meal time and 0-20 g as snack Choose complex carbohydrates, keep hydrated by choosing water with mealssnacks Coding Level of Care Code Nutr Indiv Intake (84960) Diagnoses DM type 2 (diabetes mellitus, type 2) E11.9 Time Spent (min) 30
[2024-02-08 09:47] VITALS: BMI 34.9
[2024-02-19 20:51] VITALS: BMI 34.9
== END 2024-02-08 10:33 | disposition home or self-care (01) ==
PROVIDERS: PCP Internal Medicine; Visit Provider Dietitian, Registered
DX: E11.9 Type 2 diabetes mellitus without complications (principal)

== ENCOUNTER 2024-02-08 09:39 | Outpatient (REF) | payer OTHER, SELFPAY ==
--- NOTE | ~2024-02-08 | XR_ITS ---
STUDY: Lateral hands INDICATION: Soft tissue disorder COMPARISON: None TECHNIQUE: 3 view each hand FINDINGS: Right hand: Interphalangeal joint space narrowings, most pronounced with spurring and sclerosis at the third and fifth DIPs with associated soft tissue prominence about the joint spaces. Mildly erosive changes also appear to be present at the third DIP. No fracture or dislocation. Left hand: Mild interphalangeal joint space narrowings, most pronounced third DIP where there is mild soft tissue prominence. No fracture or dislocation. XR/XR hand LT min 3V IMPRESSION: Degenerative type changes bilateral hands, most pronounced right third DIP where mild erosive component appears to be present.
--- NOTE | ~2024-02-08 | XR_ITS ---
STUDY: Bilateral feet INDICATION: Soft tissue disorders. COMPARISON: None TECHNIQUE: 3 view each foot FINDINGS: Right foot: Hammertoe deformities. Mild first MTP degenerative change. Plantar and posterior calcaneal spurring No fracture or dislocation. Left foot: Mild hallux valgus. Mild hammertoe deformities. Mild degenerative change first MTP. Plantar and posterior calcaneal spurring. No fracture or dislocation. XR/XR foot LT min 3V IMPRESSION: No acute bony pathology bilateral feet.
--- NOTE | ~2024-02-08 | XR_ITS ---
STUDY: Lateral hands INDICATION: Soft tissue disorder COMPARISON: None TECHNIQUE: 3 view each hand FINDINGS: Right hand: Interphalangeal joint space narrowings, most pronounced with spurring and sclerosis at the third and fifth DIPs with associated soft tissue prominence about the joint spaces. Mildly erosive changes also appear to be present at the third DIP. No fracture or dislocation. Left hand: Mild interphalangeal joint space narrowings, most pronounced third DIP where there is mild soft tissue prominence. No fracture or dislocation. XR/XR hand RT min 3V IMPRESSION: Degenerative type changes bilateral hands, most pronounced right third DIP where mild erosive component appears to be present.
--- NOTE | ~2024-02-08 | XR_ITS ---
STUDY: Bilateral feet INDICATION: Soft tissue disorders. COMPARISON: None TECHNIQUE: 3 view each foot FINDINGS: Right foot: Hammertoe deformities. Mild first MTP degenerative change. Plantar and posterior calcaneal spurring No fracture or dislocation. Left foot: Mild hallux valgus. Mild hammertoe deformities. Mild degenerative change first MTP. Plantar and posterior calcaneal spurring. No fracture or dislocation. XR/XR foot RT min 3V IMPRESSION: No acute bony pathology bilateral feet.
[2024-02-08 12:42] LABS: MANUAL DIFF FLAG NO
[2024-02-08 14:04] LABS: Basophils Absolute Auto 0.1 X10*3/uL (0.0-0.2); Basophils Percent Auto 0.5 % (0-2); Eosinophils Absolute Auto 0.6 X10*3/uL (0.0-0.4); Eosinophils Percent Auto 5.7 % (0-4); Hematocrit 44.4 % (37.0-47.0); Hemoglobin 14.8 g/dl (12.0-16.0); Imm Gran Abs Auto 0.03 X10*3/uL (0.00-0.03); Imm Gran Pct Auto 0.3 % (0.0-0.4); Lymphocytes Absolute Auto 3.5 X10*3/uL (1.2-4.9); Lymphocytes Percent Auto 36.3 % (20-40); Mean Corpuscular HGB Conc 33.3 g/dl (31.0-35.0); Mean Corpuscular Hemoglobin 27.9 pg (27.0-33.0); Mean Corpuscular Volume 83.8 fL (80.0-98.0); Mean Platelet Volume 10.7 fL (9.4-12.3); Monocytes Absolute Auto 0.6 X10*3/uL (0.1-1.2); Monocytes Percent Auto 5.9 % (2-11); Neutrophils Percent Auto 51.3 % (45-73); Platelet Count 316 X10*3/uL (160-400); Red Cell Distribution Width 12.2 % (11.0-16.0); White Blood Count 9.8 X10*3/uL (4.8-10.8)
[2024-02-08 14:24] LABS: Alanine Aminotransferase 19 U/L (0-31); Alkaline Phosphatase 97 U/L (39-117); Anion Gap 10 (12-20); Aspartate Amino Transferase 19 U/L (5-31); Bilirubin Total 0.3 mg/dL (0.0-1.0); Blood Urea Nitrogen 14 mg/dL (9-16); C Reactive Protein 0.42 mg/dL (< or = 0.50); Calcium 9.6 mg/dL (8.4-10.2); Carbon Dioxide 26 mmol/L (22-29); Chloride 105 mmol/L (96-108); Estimated Glomerular Filt Rate > 60; Glucose Random 191 mg/dL (60-115); Potassium 3.9 mmol/L (3.3-5.1); Sodium 137 mmol/L (135-145); Total Protein 8.2 g/dL (6.5-8.0); Uric Acid 3.4 mg/dL (2.4-5.7)
[2024-02-08 15:20] LABS: Erythrocyte Sedimentation Rate 18 MM/HR (0-20)
[2024-02-09 04:28] LABS: HBS Num1 0.25 mIU/mL (0-7.99); HBc Num1 0.06 S/CO (0.00-0.79); HBsAGNum1 0.31 S/CO (0.00-0.99); Hepatitis A Antibody IgM 0.16 Index (0-0.79); Hepatitis B Core Antibody Nonreactive (Nonreactive); Hepatitis B Surface Antigen Negative (Negative); ~Hepatitis A Antibody IgM Nonreactive (Nonreactive); ~Hepatitis B Surface Antibody NONREACTIVE (Nonreactive); ~Hepatitis C Antibody Nonreactive (Nonreactive)
[2024-02-09 15:38] LABS: Cyclic Citrullinated Peptide <16 UNITS
[2024-02-09 21:34] LABS: Prot Elec - Albumin 4.1 g/dL (3.8-4.8); Prot Elec - Alpha1 0.3 g/dL (0.2-0.3); Prot Elec - Alpha2 0.8 g/dL (0.5-0.9); Prot Elec - Beta 1 0.6 g/dL (0.4-0.6); Prot Elec - Beta 2 0.7 g/dL (0.2-0.5); Prot Elec - Gamma 1.6 g/dL (0.8-1.7)
[2024-02-09 23:08] LABS: Anti DNA DS Antibody <1 IU/mL; Antibody to SS-A Antigen <1.0 NEG AI (<1.0 NEG); Antibody to SS-B Antigen <1.0 NEG AI (<1.0 NEG); SM/Ribonucleoprotein Ab <1.0 NEG AI (<1.0 NEG); Scleroderma 70 Antibody <1.0 NEG AI (<1.0 NEG); Smith Protein <1.0 NEG AI (<1.0 NEG)
[2024-02-10 23:23] LABS: Complement C3 139 mg/dL (83-193)
[2024-02-11 07:12] LABS: TS Negative Control Passed; TS Panel A 0; TS Panel B 1; TS Positive Control Passed; TSpotTB Negative (Negative)
[2024-02-13 09:14] LABS: Anti Nuclear Antibody Screen NEGATIVE (NEGATIVE)
[2024-02-14 12:33] LABS: IgA 735 mg/dL (47-310); IgG 1665 mg/dL (600-1640); IgM 39 mg/dL (50-300)
== END 2024-02-08 09:40 | disposition home or self-care (01) ==
LOC: HO.LAB 09:39
PROVIDERS: Absent Provider Nurse Practitioner Family; PCP Internal Medicine; Visit Provider Dietitian, Registered
DX: M79.672 Pain in left foot (principal); M79.671 Pain in right foot; M79.89 Other specified soft tissue disorders; M79.641 Pain in right hand; M79.642 Pain in left hand; M17.0 Bilateral primary osteoarthritis of knee; E11.9 Type 2 diabetes mellitus without complications
CPT/HCPCS: 36415; 73130; 73630; 80053; 82550; 82784; 84165; 84550; 85025; 85652; 86038; 86140; 86160; 86200; 86225; 86235; 86334; 86481; 86704; 86706; 86709; 86803; 87340; 97802; 99202

== ENCOUNTER 2024-02-08 10:50 | Outpatient (AMB) | payer OTHER, SELFPAY ==
--- NOTE | 2024-02-08 11:09 | MHC.OFFVIS ---
Intake Vital Signs 02/08/24 11:10 Height 5 ft 2 in Weight 192 lb 0.362 oz BMI 35.1 BP 118/80 Blood Pressure Location Rt brachial Position Sitting Respiration 18 Pulse 72 Pulse Source Auscultation Temp 97.2 F Temp Source Skin Intake Visit Reasons: osteoarthritis of knee/CONFIMRED Intake Note: New patient, internally referred, presents to office today for jessenia knee OA. c/o jessenia hand and shoulder pain Pain began approx: 2 years Has tried: Tylenol arthritis Route Clerk Required: Yes Route Clerk Language: Neurosurgery Physician Name: Russell Roy Information Interpreted: clinical only Accompanied by: Significant Other Allergies metformin Adverse Reaction (Intermediate, Verified 02/15/24 11:49) Abdominal Pain HPI HPI Comments History of Present Illness Details Ms. Lara 43 yoF, accompanied by her , presents for evaluating of osteoarthritis in the right knee based on recent xray. She was referred by PCP. She has a history of T2DM, Asthma and GERD. The knee pain has been present for about 2 years. She has done not done PT was prescribed Tylenol arthritis during this time. She shares that the pain in the knee can be so bad that she cannot walk or it feels like it will collapse. She says her left knee is OK and that imaging shows OA. I observed that her hands are red and swollen and she says that they have been like that for almost as long. She cannot hold things and her helps her to get address etc because they hurt. She has pain all over her body and says she was diagnosed with fibromyalgia. She says she is always told that whatever she feels is associated with the FM and it gets frustrating to hear. She denies rash or hair loss, uveitis, UTI, rashes, GI and Urinary signs for CTD. She has no issues in the sun and, no history of blood clots, miscarriages or raynaud's. She denies dry eyes and mouth, no mouth or nose sores. [facility] Medical History Bilateral foot pain Bilateral swelling of feet Bilateral hand pain Swelling of hand Surgical History No pertinent past surgical history Family History Father Hx of CABG, Onset Age: 55 Maternal Grandfather Mental health disorder Maternal Grandmother Mental health disorder Mother Breast CA, Onset Age: 60 Other Hx of autoimmune disorder Social History Household Members Other:: , works at [employer] Housing: Apartment Patient Tobacco Use Status: Never used Tobacco e-Cigarette/Vaping Use: Never Used service: No Current occupational status: employed Current occupation: [employer] Cognitive needs: No Hearing needs: No Vision needs: Yes Female Reproductive History Menstrual Total pregnancies: 0 Review of Systems Const All systems reviewed & are unremarkable except as noted in HPI and below Physical Exam Vital Signs: Last Vital Signs Temp 97.2 F 02/08/24 11:10 Pulse 72 02/08/24 11:10 Resp 18 02/08/24 11:10 BP 118/80 02/08/24 11:10 BMI result Body Mass Index 35.1 APPEARANCE: Patient in no acute distress EYES no redness, normal EARS:? External ear normal. NOSE/SINUS:? Airflow through both nares, no nasal discharge, no bleeding THROAT:? Oral mucosa moist, no ulcerations NECK:? No thyromegaly or masses, no adenopathy, trachea midline. HEART:? Regular rhythm, S1-S2 heard, no murmurs, rubs or gallops. LUNG:? Clear to auscultation EXTREMITIES:? No edema, no calf tenderness, normal peripheral pulses. NEURO:? Oriented and alert x3.? No focal weakness.? Reflexes symmetric.? antalgic gait, slow SKIN:? There are no skin lesions evident. No objective signs of Raynaud's phenomenon. JOINT EXAM: Cervical Spine:.? Full range of motion without pain; no tenderness. Thoracic Spine:.? No scoliosis.? mild tenderness on palpation. Lumbar Spine:.? Alignment normal.? Full range of motion with mild discomfort, tenderness. Chest Wall:.? No tenderness, swelling, increased warmth or erythema. Hands:.? Decreased range of motion with diffused tenderness, swelling, increased warmth or erythema. Able to make a fist with much discomfort and has decreased administrator strength. Wrists:.? Normal pain-free range of motion with tenderness but no swelling, increased warmth or erythema. Elbows:. Normal pain-free range of motion with tenderness but no swelling, increased warmth or erythema. Shoulders:.?? Full range of motion without pain. No tenderness, weakness, swelling, increased warmth or erythema. Hips:.? Full range of motion with mild pain. Hip bursa:.? bilateral moderate tenderness. Knees:.?? Normal range of motion with discomfort to right knee and tenderness at joint line but, swelling, increased warmth or erythema.? There is no effusion or crepitation Ankles:.? Normal pain-free range of motion with tenderness at lateral and medial maleolous but swelling, increased warmth or erythema. tenderness to achilles bilaterally. Feet:.? Normal pain-free range of motion with tenderness at bilat MTP but no swelling, increased warmth or erythema. Tender points:? No tenderness to digital palpation at the occiput, trapezius, second rib, lateral epicondyle, knees, greater trochanter and gluteal area bilaterally. Results Reviewed Results Reviewed: EXAMINATION: XR KNEE, RIGHT CLINICAL INFORMATION: Right knee pain COMPARISON: None available. TECHNIQUE: AP and lateral views of the left knee. FINDINGS: BONES: Bony structures are intact. Small osteophytes are seen in the right lateral femoral condyle, right patellar articular border. Sclerotic bone island is seen in proximal right tibial shaft. There is no focal bone destruction or periosteal reaction seen. JOINTS: Alignment of joints is normal. There is severe decrease in medial compartment right knee joint space. SOFT TISSUE: Right suprapatellar fat pad shows increase in density. No radiopaque foreign body or abnormal air collection is seen. XR/XR knee RT 2V IMPRESSION: 1. Tricompartmental osteoarthritis of right knee, most severe in the medial right tibiofemoral joint is seen. 2. Right knee effusion is present. 3. No fracture or dislocation or signs of osteomyelitis are found. TECHNIQUE: AP and lateral views of the left knee. FINDINGS: BONES: Bony structures are intact. Small sharp osteophytes are seen in the left medial and lateral tibial plateaus, superior left patella. Anterior suprapatellar traction spur is present. There is no focal bone destruction or periosteal reaction seen. JOINTS: Alignment of joints is normal. There is severe decrease in medial compartment left knee joint space. SOFT TISSUE: Left suprapatellar fat pad shows increase in density. No radiopaque foreign body or abnormal air collection is seen. XR/XR knee LT 2V IMPRESSION: 1. Tricompartmental osteoarthritis of left knee, most severe in the medial left tibiofemoral joint is seen. 2. Left knee effusion is present. 3. No fracture or dislocation or signs of osteomyelitis are found. 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 She has synovitis on PE to some PIP joints and recent Xrays I ordered identify erosive changes to some PIP joints. Additionally, give the moderate to Advanced arthritic findings for her knees suggest that an inflammatory process is driving the OA. The knee xray from 10/2023 shows advanced OA and fat pad density which can suggest inflammation. I have also ordered labs for CTD and inflammatory serology. I started her on a course of prednisone with the goal to relieve some of her symptoms. Will consider to start DMARD therapy at next visit. I spent 45 minutes reviewing history, evaluating patient and documenting f/u 3 weeks. Orders: Orders XR foot LT min 3V 02/08/24 M79.641 - Pain in right hand, M79.642 - Pain in left hand, M79.671 - Pain in right foot, M79.672 - Pain in left foot, M79.89 - Other specified soft tissue disorders XR foot RT min 3V 02/08/24 M79.641 - Pain in right hand, M79.642 - Pain in left hand, M79.671 - Pain in right foot, M79.672 - Pain in left foot, M79.89 - Other specified soft tissue disorders XR hand LT min 3V 02/08/24 M79.641 - Pain in right hand, M79.642 - Pain in left hand, M79.671 - Pain in right foot, M79.672 - Pain in left foot, M79.89 - Other specified soft tissue disorders XR hand RT min 3V 02/08/24 M79.641 - Pain in right hand, M79.642 - Pain in left hand, M79.671 - Pain in right foot, M79.672 - Pain in left foot, M79.89 - Other specified soft tissue disorders Complement C3 02/08/24 M79.641 - Pain in right hand, M79.642 - Pain in left hand, M79.671 - Pain in right foot, M79.672 - Pain in left foot, M79.89 - Other specified soft tissue disorders Anti Extractable Nuclear Ag 02/08/24 M79.641 - Pain in right hand, M79.642 - Pain in left hand, M79.671 - Pain in right foot, M79.672 - Pain in left foot, M79.89 - Other specified soft tissue disorders Erythrocyte Sedimentation Rate 02/08/24 M79.641 - Pain in right hand, M79.642 - Pain in left hand, M79.671 - Pain in right foot, M79.672 - Pain in left foot, M79.89 - Other specified soft tissue disorders Hepatitis A,B,C Profile 02/08/24 M79.641 - Pain in right hand, M79.642 - Pain in left hand, M79.671 - Pain in right foot, M79.672 - Pain in left foot, M79.89 - Other specified soft tissue disorders Sjogren's Antibodies 02/08/24 M79.641 - Pain in right hand, M79.642 - Pain in left hand, M79.671 - Pain in right foot, M79.672 - Pain in left foot, M79.89 - Other specified soft tissue disorders Uric Acid 02/08/24 M79.641 - Pain in right hand, M79.642 - Pain in left hand, M79.671 - Pain in right foot, M79.672 - Pain in left foot, M79.89 - Other specified soft tissue disorders CARROL Reflex Titer and Pattern 02/08/24 M79.641 - Pain in right hand, M79.642 - Pain in left hand, M79.671 - Pain in right foot, M79.672 - Pain in left foot, M79.89 - Other specified soft tissue disorders Complement C4 02/08/24 M79.641 - Pain in right hand, M79.642 - Pain in left hand, M79.671 - Pain in right foot, M79.672 - Pain in left foot, M79.89 - Other specified soft tissue disorders Anti DNA DS Antibody 02/08/24 M79.641 - Pain in right hand, M79.642 - Pain in left hand, M79.671 - Pain in right foot, M79.672 - Pain in left foot, M79.89 - Other specified soft tissue disorders C Reactive Protein 02/08/24 M79.641 - Pain in right hand, M79.642 - Pain in left hand, M79.671 - Pain in right foot, M79.672 - Pain in left foot, M79.89 - Other specified soft tissue disorders Comprehensive Met. Panel 02/08/24 M79.641 - Pain in right hand, M79.642 - Pain in left hand, M79.671 - Pain in right foot, M79.672 - Pain in left foot, M79.89 - Other specified soft tissue disorders Complete Blood Count Auto Diff 02/08/24 M79.641 - Pain in right hand, M79.642 - Pain in left hand, M79.671 - Pain in right foot, M79.672 - Pain in left foot, M79.89 - Other specified soft tissue disorders Creatine Kinase Total 02/08/24 M79.641 - Pain in right hand, M79.642 - Pain in left hand, M79.671 - Pain in right foot, M79.672 - Pain in left foot, M79.89 - Other specified soft tissue disorders Immunoglobulins,IgG IgA IgM 02/08/24 M79.641 - Pain in right hand, M79.642 - Pain in left hand, M79.671 - Pain in right foot, M79.672 - Pain in left foot, M79.89 - Other specified soft tissue disorders Protein Electrophoresis, Serum 02/08/24 M79.641 - Pain in right hand, M79.642 - Pain in left hand, M79.671 - Pain in right foot, M79.672 - Pain in left foot, M79.89 - Other specified soft tissue disorders Scleroderma 70 Antibody 02/08/24 M79.641 - Pain in right hand, M79.642 - Pain in left hand, M79.671 - Pain in right foot, M79.672 - Pain in left foot, M79.89 - Other specified soft tissue disorders T Spot TB 02/08/24 M79.641 - Pain in right hand, M79.642 - Pain in left hand, M79.671 - Pain in right foot, M79.672 - Pain in left foot, M79.89 - Other specified soft tissue disorders Immunofixation Pnl, Serum 02/08/24 M79.641 - Pain in right hand, M79.642 - Pain in left hand, M79.671 - Pain in right foot, M79.672 - Pain in left foot, M79.89 - Other specified soft tissue disorders Cyclic Citrullinated Peptide 02/08/24 M79.89 - Other specified soft tissue disorders Coding Level of Care Code New Pt Level 4 (02121) Diagnoses Bilateral swelling of feet M79.89 Bilateral hand pain M79.641; M79.642 Bilateral primary osteoarthritis of knee M17.0
[2024-02-08 11:10] VITALS: BP 118/80; PULSE 72; RESP 18; TEMP 36.2; BMI 35.1
== END 2024-02-08 12:07 | disposition home or self-care (01) ==
PROVIDERS: PCP Internal Medicine; Visit Provider Nurse Practitioner Family
DX: M79.89 Other specified soft tissue disorders (principal); M79.641 Pain in right hand; M79.642 Pain in left hand; M17.0 Bilateral primary osteoarthritis of knee
CPT/HCPCS: 99204

== ENCOUNTER 2024-02-15 11:46 | Outpatient (AMB) | payer OTHER, SELFPAY ==
--- NOTE | 2024-02-15 11:47 | MHC.PC.OV ---
Vital Signs 02/15/24 11:48 Height 5 ft 2 in Weight 189 lb BMI 34.6 BP 122/74 Blood Pressure Location Rt brachial Position Sitting Pulse 72 Pulse Source Pulse Oximeter Pulse Oximetry (%) 97 Oxygen Delivery Method Room Air Intake Visit Reasons: 1 month follow up Intake Note: Pt is here today for 1 month follow up visit. Allergies metformin Adverse Reaction (Intermediate, Verified 02/15/24 11:49) Abdominal Pain Medication List - Last Reconciled 02/15/24 by Krysten Gage MD albuterol sulfate 90 mcg/actuation 1 puff inhalation QID PRN famotidine (Pepcid) 20 mg PO DAILY lancets (OneTouch Delica Plus Lancet) test blood sugar twice a day Lantus Solostar U-100 Insulin (insulin glargine) 10 units (0.1 mL) subcut QPM NS metformin ER 750 mg PO DAILY olmesartan 5 mg PO DAILY OneTouch Ultra Test (blood sugar diagnostic) tid NS pen needle, diabetic Use to inject insulin once a day Tobacco use date assessed: 02/15/24 Dental Screening Dental Screen Date: 12/08/23 HPI 1 month follow up HPI Details Patient presents for the follow-up of type 2 diabetes and hypertension. She reports improve overall glycemic control with a fasting glucose between 120-140 and before meals will 100-140. Patient has been taking 3 units of Lantus and 750 mg of metformin(she could not tolerate high dose because of diarrhea). Patient had extensive blood work done by rheumatology [employer] negative for RA and CARROL with normal CRP and x-rays of both hands showing osteoarthritis. [facility] Medical History Bilateral foot pain Bilateral swelling of feet Bilateral hand pain Swelling of hand Surgical History No pertinent past surgical history Family History Father Hx of CABG, Onset Age: 55 Maternal Grandfather Mental health disorder Maternal Grandmother Mental health disorder Mother Breast CA, Onset Age: 60 Other Hx of autoimmune disorder Social History Household Members Other:: , works at [employer] Housing: Apartment Patient Tobacco Use Status: Never used Tobacco e-Cigarette/Vaping Use: Never Used service: No Current occupational status: employed Current occupation: [employer] Cognitive needs: No Hearing needs: No Vision needs: Yes Questionnaire Thrive Questionnaire Date Thrive assessed: 12/08/23 CLAY-7 AMB Questionnaire CLAY-7 Date CLAY - 7 assessed: 12/08/23 Source: Developed by Drs. Neri Persaud, Sindhu Austin, Darrell Serrano and colleagues, with an educational carmen from [employer]. Review of Systems Const All systems reviewed & are unremarkable except as noted in HPI and below Reports no additional complaints Eyes Reports no additional complaints ENT Reports no additional complaints Card Reports no additional complaints Resp Reports no additional complaints GI Reports no additional complaints Reports no additional complaints Physical exam (Primary Care) Vital Signs: Last Vital Signs Pulse 72 02/15/24 11:48 BP 122/74 02/15/24 11:48 Pulse Ox 97 02/15/24 11:48 Oxygen Delivery Method Room Air 02/15/24 11:48 BMI result Body Mass Index 34.6 Tobacco/Smoking Status: Tobacco use Status Tobacco use date assessed 02/15/24 02/15/24 11:52 Patient Tobacco Use Status Never used Tobacco 02/15/24 11:52 e-Cigarette/Vaping Use Never Used 02/15/24 11:52 Thrive Assessment: Date of Thrive Assessment Date Thrive assessed 12/08/23 02/15/24 11:52 Const General: no acute distress HENMT Face and sinus: Yes normal facial exam Resp Effort & Inspection: normal respiratory effort Auscultation: clear to auscultation bilaterally Cardio Rhythm: regular rhythm Heart sounds: S1 normal heart sound present and S2 normal heart sound present GI Inspection: Yes normal to inspection Palpation (GI): Soft to palpation Percussion: Yes normal to percussion Assessment and Plan Assessment & Plan (1) Bilateral primary osteoarthritis of knee: Comment: X-ray showed advanced osteoarthritis of both knees Code(s): M17.0 - Bilateral primary osteoarthritis of knee Plan: Referred to ortho for Synvisc injections. Patient prefers to avoid cortisone injections because of diabetes (2) Hypertension: Code(s): I10 - Essential (primary) hypertension Plan: Continue olmesartan (3) DM type 2 (diabetes mellitus, type 2): Code(s): E11.9 - Type 2 diabetes mellitus without complications Plan: Improving glycemic control, ADA diet increase physical activity weight loss discussed with the patient. She will continue same medications will return in 2 months with a fasting labs before Orders: Orders Lipid Panel 2 Months E11.9 - Type 2 diabetes mellitus without complications, I10 - Essential (primary) hypertension Complete Blood Count Auto Diff 2 Months E11.9 - Type 2 diabetes mellitus without complications, I10 - Essential (primary) hypertension Comprehensive [place]. Panel Fast 2 Months E11.9 - Type 2 diabetes mellitus without complications, I10 - Essential (primary) hypertension Hemoglobin A1c 2 Months E11.9 - Type 2 diabetes mellitus without complications, I10 - Essential (primary) hypertension Microalbumin, Random (w Creat) 2 Months E11.9 - Type 2 diabetes mellitus without complications, I10 - Essential (primary) hypertension Referrals Orthopedics Referral M17.0 - Bilateral primary osteoarthritis of knee Medications: Changed From Lantus Solostar U-100 Insulin (insulin glargine) 10 units (0.1 mL) subcut QPM 15 mL 3RF NS To Lantus Solostar U-100 Insulin (insulin glargine) 3 units (0.03 mL) subcut QPM 15 mL 3RF NS Coding Level of Care Code Est Pt Level 4 (66383) Diagnoses Bilateral primary osteoarthritis of knee M17.0 Hypertension I10 DM type 2 (diabetes mellitus, type 2) E11.9
[2024-02-15 11:48] VITALS: BP 122/74; PULSE 72; O2SAT 97; BMI 34.6
== END 2024-02-15 12:21 | disposition home or self-care (01) ==
PROVIDERS: PCP Internal Medicine; Visit Provider Internal Medicine
DX: M17.0 Bilateral primary osteoarthritis of knee (principal); I10 Essential (primary) hypertension; E11.9 Type 2 diabetes mellitus without complications
CPT/HCPCS: 99214

== ENCOUNTER 2024-03-01 13:37 | Outpatient (AMB) | payer OTHER, SELFPAY ==
--- NOTE | 2024-03-01 13:44 | A.OFFVIS_ITS ---
Vital Signs 03/01/24 13:50 Height 5 ft 2 in Weight 188 lb 11.451 oz BMI 34.5 BP 128/76 Blood Pressure Location Rt brachial Position Sitting Pulse 79 Pulse Source Palpation Intake Visit Reasons: Inflammatory Arthritis. Hands and Feet Intake Note: Patient last seen 02/08/24, presents today for follow up and test results. 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 Lara 43 yoF, accompanied by her , presents for follow-up to discuss labs and imaging and treatment for SeroNegative RA. She shares that the prednisone provided great relief to the joint pains to her knees and the hand swelling. Initial History 02/08/2024: Ms. Lara 43 yoF, accompanied by her , presents for evaluating of osteoarthritis in the right knee based on recent xray. She was referred by PCP. She has a history of T2DM, Asthma and GERD. The knee pain has been present for about 2 years. She has done not done PT was prescribed Tylenol arthritis during this time. She shares that the pain in the knee can be so bad that she cannot walk or it feels like it will collapse. She says her left knee is OK and that imaging shows OA. I observed that her hands are red and swollen and she says that they have been like that for almost as long. She cannot hold things and her helps her to get address etc because they hurt. She has pain all over her body and says she was diagnosed with fibromyalgia. She says she is always told that whatever she feels is associated with the FM and says it gets frustrating to hear. She denies rash or hair loss, uveitis, UTI, rashes, GI and Urinary signs for CTD. She has no issues in the sun and, no history of blood clots, miscarriages or raynaud's. She denies dry eyes and mouth, no mouth or nose sores. [facility] Medical History (Updated 03/28/24 @ 23:37 by VISHAL Sumner) Long-term use of immunosuppressant medication Seronegative rheumatoid arthritis Bilateral foot pain Bilateral swelling of feet Bilateral hand pain Swelling of hand Surgical History No pertinent past surgical history Family History Father Hx of CABG, Onset Age: 55 Maternal Grandfather Mental health disorder Maternal Grandmother Mental health disorder Mother Breast CA, Onset Age: 60 Other Hx of autoimmune disorder Social History Household Members Other:: , works at [employer] Housing: Apartment Patient Tobacco Use Status: Never used Tobacco e-Cigarette/Vaping Use: Never Used service: No Current occupational status: employed Current occupation: [employer] Cognitive needs: No Hearing needs: No Vision needs: Yes Review of Systems Const All systems reviewed & are unremarkable except as noted in HPI and below Physical Exam Vital Signs: Last Vital Signs Pulse 79 03/01/24 13:50 BP 128/76 03/01/24 13:50 BMI result Body Mass Index 34.5 APPEARANCE: Patient in no acute distress EYES no redness, normal EARS:? External ear normal. NOSE/SINUS:? Airflow through both nares, no nasal discharge, no bleeding THROAT:? Oral mucosa moist, no ulcerations NECK:? No thyromegaly or masses, no adenopathy, trachea midline. HEART:? Regular rhythm, S1-S2 heard, no murmurs, rubs or gallops. LUNG:? Clear to auscultation EXTREMITIES:? No edema, no calf tenderness, normal peripheral pulses. NEURO:? Oriented and alert x3.? No focal weakness.? Reflexes symmetric.? antalgic gait, slow SKIN:? There are no skin lesions evident. No objective signs of Raynaud's phenomenon. JOINT EXAM: Cervical Spine:.? Full range of motion without pain; no tenderness. Thoracic Spine:.? No scoliosis.? mild tenderness on palpation. Lumbar Spine:.? Alignment normal.? Full range of motion with mild discomfort, tenderness. Chest Wall:.? No tenderness, swelling, increased warmth or erythema. Hands:.? Decreased range of motion with diffused tenderness, swelling, increased warmth or erythema. 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 Wrists:.? Normal pain-free range of motion with tenderness but no swelling, increased warmth or erythema. Elbows:. Normal pain-free range of motion with tenderness but no swelling, increased warmth or erythema. Shoulders:.?? Full range of motion without pain. No tenderness, weakness, swelling, increased warmth or erythema. Hips:.? Full range of motion with mild pain. Hip bursa:.? bilateral moderate tenderness. Knees:.?? Normal range of motion with discomfort to right knee and tenderness at joint line but, swelling, increased warmth or erythema.? There is no effusion or crepitation Ankles:.? Normal pain-free range of motion with tenderness at lateral and medial maleolous but swelling, increased warmth or erythema. tenderness to achilles bilaterally. Feet:.? Normal pain-free range of motion with tenderness at bilat MTP but no swelling, increased warmth or erythema. Tender points:? No tenderness to digital palpation at the occiput, trapezius, second rib, lateral epicondyle, knees, greater trochanter and gluteal area bilaterally. Results Reviewed Results Reviewed: Laboratory Tests 02/08/24 12:39 WBC 9.8 RBC 5.30 Hgb 14.8 Hct 44.4 ESR 18 Creatinine 0.74 Uric Acid 3.4 AST 19 ALT 19 Total Creatine Kinase 37 C-Reactive Protein 0.42 IgG Total 1665 H IgA Total 735 H STUDY: Lateral hands INDICATION: Soft tissue disorder COMPARISON: None TECHNIQUE: 3 view each hand FINDINGS: Right hand: Interphalangeal joint space narrowings, most pronounced with spurring and sclerosis at the third and fifth DIPs with associated soft tissue prominence about the joint spaces. Mildly erosive changes also appear to be present at the third DIP. No fracture or dislocation. Left hand: Mild interphalangeal joint space narrowings, most pronounced third DIP where there is mild soft tissue prominence. No fracture or dislocation. [address] [address] XRay Report Signed Patient: Kd Powell MR#: [id number] : 1980 Acct:[id number] Age/Sex: 43 / F ADM Date: 02/08/24 Loc: HO.LAB Attending Dr: Clara Maldonado RD, LDN Ordering Physician: Angela Allen Date of Service: 02/08/24 Procedure(s): XR foot RT min 3V Accession Number(s): [id number] cc: Krysten Gage MD; Angela Allen [facility]~ STUDY: Bilateral feet INDICATION: Soft tissue disorders. COMPARISON: None TECHNIQUE: 3 view each foot FINDINGS: Right foot: Hammertoe deformities. Mild first MTP degenerative change. Plantar and posterior calcaneal spurring No fracture or dislocation. Left foot: Mild hallux valgus. Mild hammertoe deformities. Mild degenerative change first MTP. Plantar and posterior calcaneal spurring. No fracture or dislocation. XR/XR foot RT min 3V IMPRESSION: No acute bony pathology bilateral feet. Assessment & Plan Assessment & Plan (1) Bilateral swelling of feet: Code(s): M79.89 - Other specified soft tissue disorders Category: Medical (2) Bilateral hand pain: Code(s): M79.641 - Pain in right hand; M79.642 - Pain in left hand Category: Medical (3) Bilateral primary osteoarthritis of knee: Comment: X-ray showed advanced osteoarthritis of both knees Code(s): M17.0 - Bilateral primary osteoarthritis of knee Category: Medical (4) Seronegative rheumatoid arthritis: Code(s): M06.00 - Rheumatoid arthritis without rheumatoid factor, unspecified site Category: Medical (5) Long-term use of immunosuppressant medication: 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(s): 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 and immunosuppressants Category: Medical (6) DM type 2 (diabetes mellitus, type 2): Code(s): E11.9 - Type 2 diabetes mellitus without complications Category: Medical Qualifiers: Diabetes mellitus termite helper insulin use: with termite helper use Diabetes mellitus complication status: with hyperglycemia Qualified Code(s): E11.65 - Type 2 diabetes mellitus with hyperglycemia; Z79.4 - 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 Her IgG and IgA are elevated indicating immune hyperactivity. The ESR and CRP are within normal limits. Imaging shows features of inflammatory arthritis to include sclerosing and erosions with soft tissue swelling around the DIP and PIP joints. The synovitis on PE to some PIP joints have improved with the Prednisone and the patient is happy with the improvement to her hands. I will start MTX 10 mg QW and Folic acid 1 mg QD and bridge with a course of Prednisone while MTX onboards. #Longterm Use: I discussed with patient possible side effects of methotrexate to include but not limited to cytopenias, liver toxicity, mouth sores, hair loss, and brain fog. Patient is also educated to hold methotrexate in the event of a fever, infection, surgery and nonhealing wound. We will monitor CBC and CMP with methotrexate is. #Type 2 DM: Patient knows to monitor blood sugars and adjust insulin as needed while on prednisone I spent 30 minutes reviewing history, evaluating patient and documenting f/u 8 weeks. 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 and immunosuppressants Medications: New methotrexate sodium 10 mg (4 x 2.5 mg) PO QWEEK 16 tabs 1RF M06.00 - Rheumatoid arthritis without rheumatoid factor, unspecified site folic acid 1 mg PO DAILY 90 tabs 0RF Z79.60 - longterm (current) use of unspe cified immunomodulators and immunosuppressants prednisone take two tablets per day 2 weeks 1 tablet per day for two weeks 5 mg PO DAILY 45 tabs 0RF M06.00 - Rheumatoid arthritis without rheumatoid factor, unspecified site Coding Level of Care Code Est Pt Level 4 (46390) Complex EM visit Add On G2211 Diagnoses Bilateral swelling of feet M79.89 Bilateral hand pain M79.641; M79.642 Bilateral primary osteoarthritis of knee M17.0 Seronegative rheumatoid arthritis M06.00 Long-term use of immunosuppressant medication Z79.60 Type 2 diabetes mellitus with hyperglycemia, with long-term current use of insulin E11.65; Z79.4 Diabetes mellitus assisted insulin use: with termite helper use Diabetes mellitus complication status: with hyperglycemia
[2024-03-01 13:50] VITALS: BP 128/76; PULSE 79; BMI 34.5
== END 2024-03-01 14:27 | disposition home or self-care (01) ==
PROVIDERS: PCP Internal Medicine; Referring Provider Internal Medicine; Visit Provider Nurse Practitioner Family
DX: M79.89 Other specified soft tissue disorders (principal); M79.641 Pain in right hand; M79.642 Pain in left hand; M17.0 Bilateral primary osteoarthritis of knee; M06.00 Rheumatoid arthritis without rheumatoid factor, unspecified site; Z79.60 Long term (current) use of unspecified immunomodulators and immunosuppressants; E11.65 Type 2 diabetes mellitus with hyperglycemia; Z79.4 Long term (current) use of insulin
CPT/HCPCS: 99214; G2211

== ENCOUNTER → 2024-03-01 13:37 | Outpatient (BNVA) | payer OTHER, SELFPAY | PROVIDERS: PCP Internal Medicine; Visit Provider Nurse Practitioner Family | DX: M06.00 Rheumatoid arthritis without rheumatoid factor, unspecified site (principal); M17.0 Bilateral primary osteoarthritis of knee; M79.641 Pain in right hand; M79.642 Pain in left hand; M79.89 Other specified soft tissue disorders; E11.65 Type 2 diabetes mellitus with hyperglycemia; Z79.60 Long term (current) use of unspecified immunomodulators and immunosuppressants; Z79.4 Long term (current) use of insulin | CPT/HCPCS: 99212 ==

== ENCOUNTER 2024-03-15 10:35 | Outpatient (REF) | payer OTHER, SELFPAY ==
--- NOTE | ~2024-03-15 | XR_ITS ---
EXAMINATION: XR KNEE, LEFT XR KNEE, RIGHT CLINICAL INFORMATION: Pain in unspecified knee COMPARISON: Bilateral knees 11/07/2023 TECHNIQUE: AP standing view both knees. Lateral and sunrise view of both knees. FINDINGS: The bones are intact. No joint effusion. There is marked narrowing of the medial and sunrise views with slight right lateral patellar tilt. Tricompartment marginal osteophytes are noted. Bone island in the proximal right femur is again noted. No abnormal soft tissue calcification. XR/XR knee LT 2V IMPRESSION: Marked bilateral osteoarthritis.
--- NOTE | ~2024-03-15 | XR_ITS ---
EXAMINATION: XR KNEE, LEFT XR KNEE, RIGHT CLINICAL INFORMATION: Pain in unspecified knee COMPARISON: Bilateral knees 11/07/2023 TECHNIQUE: AP standing view both knees. Lateral and sunrise view of both knees. FINDINGS: The bones are intact. No joint effusion. There is marked narrowing of the medial and sunrise views with slight right lateral patellar tilt. Tricompartment marginal osteophytes are noted. Bone island in the proximal right femur is again noted. No abnormal soft tissue calcification. XR/XR knee RT 2V IMPRESSION: Marked bilateral osteoarthritis.
== END 2024-03-15 10:36 | disposition home or self-care (01) ==
LOC: HO.HOSX 10:35
PROVIDERS: Visit Provider Orthopaedic Surgery
DX: M17.0 Bilateral primary osteoarthritis of knee (principal)
CPT/HCPCS: 73560; 99202

== ENCOUNTER 2024-03-15 10:41 | Outpatient (AMB) | payer OTHER, SELFPAY ==
--- NOTE | 2024-03-15 11:49 | MHC.OFFVIS ---
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 Right > Left. Patient reports that she has had ongoing pain for about 2 years now, pain is intermittent but at times can become so severe it impacts her ability to walk resulting in falls. Hx of fibromyalgia & Seronegative RA. Prednisone Rx given by rheumatology on 03/01/24. She has recently been diagnosed with RA and is undergoing treatment. She describes pain at work with stairs and she lives on a third floor apartment without elevator. No previous injections [facility] Medical History (Updated 03/01/24 @ 14:19 [facility] Long-term use of immunosuppressant medication Seronegative rheumatoid arthritis Bilateral foot pain Bilateral swelling of feet Bilateral hand pain Swelling of hand Surgical History No pertinent past surgical history Family History Father Hx of CABG, Onset Age: 55 Maternal Grandfather Mental health disorder Maternal Grandmother Mental health disorder Mother Breast CA, Onset Age: 60 Other Hx of autoimmune disorder Social History Household Members Other:: , works at [employer] Housing: Apartment Patient Tobacco Use Status: Never used Tobacco e-Cigarette/Vaping Use: Never Used service: No Current occupational status: employed Current occupation: [employer] Cognitive needs: No Hearing needs: No Vision needs: Yes Physical Exam Const General: cooperative, healthy appearing, no acute distress, well developed and alert HEENT Head: Yes normal to inspection, Yes normocephalic and Yes atraumatic Mouth: moist mucous membranes Eyes General: appearance normal, both eyes and all related structures EOM: EOMs intact bilaterally Chest Other: no audible wheezing. Resp Other: No audible wheezing Effort & Inspection: normal respiratory effort Back/Spine/Pelvis Cervical Spine: normal cervical lordosis Skin General skin exam: no rashes or lesions noted Neuro General: no focal motor deficits Extrem Other: Vaurs knee alignment with ttp bilateral medial ocmaprtments Psych Appearance: grossly normal and well kempt Mental Status: mental status grossly normal Speech and movement: Normal speech and movement present Affect: normal affect Attitude: cooperative Results Reviewed Results Reviewed: moderate to severe bilateral knee OA Assessment & Plan Assessment & Plan (1) Bilateral primary osteoarthritis of knee: Comment: X-ray showed advanced osteoarthritis of both knees Code(s): M17.0 - Bilateral primary osteoarthritis of knee Category: Medical Plan: 43 yo with bilateral knee OA. RA +. I recommend stair avoidance at work and at home. This seems to be her primary pain generator and Iwould avoid this. If her pain worsens would consider injections, PT. Orders: Orders XR knee standing BI Today M25.569 - Pain in unspecified knee XR knee RT 2V Today M25.569 - Pain in unspecified knee XR knee LT 2V Today M25.569 - Pain in unspecified knee Coding Level of Care Code New Pt Level 4 (02689) Diagnoses Bilateral primary osteoarthritis of knee M17.0
== END 2024-03-15 12:13 | disposition home or self-care (01) ==
PROVIDERS: PCP Internal Medicine; Visit Provider Orthopaedic Surgery
DX: M17.0 Bilateral primary osteoarthritis of knee (principal)
CPT/HCPCS: 99203

== ENCOUNTER 2024-03-27 11:55 | Outpatient (AMB) | payer OTHER, SELFPAY ==
[2024-03-27 12:02] VITALS: BP 130/76; PULSE 72; TEMP 36.7; O2SAT 98
--- NOTE | 2024-03-27 12:02 | AM.OFFWIN_ITS ---
Intake Vital Signs 03/27/24 12:02 Height 5 ft 2 in BP 130/76 Blood Pressure Location Rt brachial Position Sitting Pulse 72 Pulse Source Pulse Oximeter Temp 98.0 F Temp Source Oral Pulse Oximetry (%) 98 Intake Visit Reasons: EP left shoulder injury from work Intake Note: pt is here for left shoulder injury from work Patient Tobacco Use Status: Never used Tobacco Allergies metformin Adverse Reaction (Intermediate, Verified 03/27/24 12:07) Abdominal Pain Do you need a note to return to daycare/school/sports/work: Yes HPI HPI Comments History of Present Illness Details 43 y/o female patient who presents to [facility] in clinic with c/o left shoulder injury. Pt reports that Monday while working, she reached Overhead for a box and immediately she felt POP and severe pain. Severe pain with ROM, limited. Pain radiating down to her fingers and hand. She has been taking Arthritis Tylenol with mild improvement. [facility] Medical History (Updated 03/01/24 @ 14:19 by Angela Allen [facility] Long-term use of immunosuppressant medication Seronegative rheumatoid arthritis Bilateral foot pain Bilateral swelling of feet Bilateral hand pain Swelling of hand Surgical History No pertinent past surgical history Family History Father Hx of CABG, Onset Age: 55 Maternal Grandfather Mental health disorder Maternal Grandmother Mental health disorder Mother Breast CA, Onset Age: 60 Other Hx of autoimmune disorder Social History Household Members Other:: , works at [employer] Housing: Apartment Patient Tobacco Use Status: Never used Tobacco e-Cigarette/Vaping Use: Never Used service: No Current occupational status: employed Current occupation: [employer] Cognitive needs: No Hearing needs: No Vision needs: Yes Review of Systems Const All systems reviewed & are unremarkable except as noted in HPI and below Physical Exam Vital Signs: Last Vital Signs Temp 98.0 F 03/27/24 12:02 Pulse 72 03/27/24 12:02 BP 130/76 03/27/24 12:02 Pulse Ox 98 03/27/24 12:02 Const General: no acute distress; No comfortable Nutritional Appearance: overweight Orientation/consciousness: patient oriented x3 Neuro General: patient oriented x3, gait normal and moves all extremities Extrem Right upper extremity: normal to inspection, normal capillary refill and shoulder/upper arm Details: normal to inspection and normal ROM Left upper extremity: normal to inspection, normal capillary refill and shoulder/upper arm Details: inspection abnormal, tenderness Location: of the A-C joint and abnormal ROM Details: held in an abnormal fashion, pain with active ROM and pain with passive ROM; no ecchymosis and no deformity Psych Speech and movement: Normal speech and movement present Assessment & Plan Assessment & Plan (1) Left shoulder strain: Code(s): S46.912A - Strain of unspecified muscle, fascia and tendon at shoulder and upper arm level, left arm, initial encounter Qualifiers: Encounter type: initial encounter Qualified Code(s): S46.912A - Strain of unspecified muscle, fascia and tendon at shoulder and upper arm level, left arm, initial encounter Plan: - Shoulder strain vs Sprain - Xray to r/o FX - Continue taking Acetaminophen as prescribed. - Muscle relaxants. - Ice Hot. Orders: Orders XR shoulder LT min 2V Today S46.912A - Strain of unspecified muscle, fascia and tendon at shoulder and upper arm level, left arm, initial encounter Medications: New metaxalone 800 mg PO TID 30 tabs 0RF S46.912A - Strain of unspecified muscle, fascia and tendon at shoulder and upper arm level, left arm, initial encounter lidocaine 5% leave on most painful area for up to 12 hrs 1 patch topical DAILY 30 ea 0RF S46.912A - Strain of unspecified muscle, fascia and tendon at shoulder and upper arm level, left arm, initial encounter Coding Level of Care Code Est Pt Level 4 (81436) Diagnoses Strain of left shoulder, initial encounter S46.912A Encounter type: initial encounter Time Spent (min) 20
== END 2024-03-27 12:41 | disposition home or self-care (01) ==
PROVIDERS: PCP Internal Medicine; Visit Provider Nurse Practitioner Family
DX: S46.912A Strain of unspecified muscle, fascia and tendon at shoulder and upper arm level, left arm, initial encounter (principal); Z04.2 Encounter for examination and observation following work accident
CPT/HCPCS: 99214

== ENCOUNTER 2024-03-27 12:19 | Outpatient (REF) | payer OTHER, SELFPAY ==
--- NOTE | ~2024-03-27 | XR_ITS ---
EXAMINATION: XR SHOULDER, LEFT CLINICAL INFORMATION: Left shoulder pain. Painful range of motion. COMPARISON: None available. TECHNIQUE: AP, scapular Y, and cruciate views of the left shoulder. FINDINGS: No acute fracture or dislocation. Small acromioclavicular marginal osteophytes. Inferior and lateral subacromial spurring. Mild glenohumeral joint space narrowing with small marginal osteophytes. No concerning lytic or blastic osseous lesion. XR/XR shoulder LT min 2V IMPRESSION: 1. Mild acromioclavicular osteoarthritis with inferior and lateral subacromial spurs. 2. Mild glenohumeral osteoarthritis. 3. No acute fracture or dislocation.
== END 2024-03-27 12:20 | disposition home or self-care (01) ==
LOC: HO.HMGCX 12:19
PROVIDERS: PCP Internal Medicine; Visit Provider Nurse Practitioner Family
DX: E11.9 Type 2 diabetes mellitus without complications (principal); Z71.3 Dietary counseling and surveillance; S46.912A Strain of unspecified muscle, fascia and tendon at shoulder and upper arm level, left arm, initial encounter; X58.XXXA Exposure to other specified factors, initial encounter; Y93.9 Activity, unspecified; Y92.9 Unspecified place or not applicable; Y99.9 Unspecified external cause status
CPT/HCPCS: 73030; 97803

== ENCOUNTER 2024-03-27 13:31 | Outpatient (AMB) | payer OTHER, SELFPAY ==
[2024-03-27 13:37] VITALS: BMI 34.9
--- NOTE | 2024-03-27 13:37 | A.OFFVIS_ITS ---
VS Expanded 03/27/24 13:37 Height 5 ft 2 in Weight 190 lb 11.198 oz BMI 34.9 Intake Visit Reasons: T2DM/LVM Allergies metformin Adverse Reaction (Intermediate, Verified 03/27/24 12:07) Abdominal Pain Nutrition Presentation Details: Pt presents for MNT for T2DM Pt reports monitoring blood glucose, reports fasting blood gluc ranging from 110-120 and 2 hours after meals 150-160s , did not bring glucometer to this appt Pt reports choosing low carb food options, reports limited intake of fruits and vegetables due to concerns of elevated blood glucose with fruits and not liking/used to including veg Reports slowly getting into the routine of meal planning B: eggs with tomatoes L: ham/cheese sand on keto bread, water dinner: poultry or beef, pork , and rice Physical activity:sedentary/limited due to arthritis ETOH-- smoking-- BS Monitoring Most Recent Diabetes Results: Creatinine 0.74 mg/dL (0.5-1.4) 02/08/24 Blood Urea Nitrogen 14 mg/dL (9-16) 02/08/24 Sodium 137 mmol/L (135-145) 02/08/24 Potassium 3.9 mmol/L (3.3-5.1) 02/08/24 Chloride 105 mmol/L (96-108) 02/08/24 Carbon Dioxide 26 mmol/L (22-29) 02/08/24 Calcium 9.6 mg/dL (8.4-10.2) 02/08/24 AST 19 U/L (5-31) 02/08/24 ALT 19 U/L (0-31) 02/08/24 Total Protein 8.2 g/dL (6.5-8.0) H 02/08/24 Albumin 4.0 g/dL (3.5-5.0) 02/08/24 PFSH Medical History (Updated 03/01/24 @ 14:19 by VISHAL Sumner) Long-term use of immunosuppressant medication Seronegative rheumatoid arthritis Bilateral foot pain Bilateral swelling of feet Bilateral hand pain Swelling of hand Surgical History No pertinent past surgical history Family History Father Hx of CABG, Onset Age: 55 Maternal Grandfather Mental health disorder Maternal Grandmother Mental health disorder Mother Breast CA, Onset Age: 60 Other Hx of autoimmune disorder Social History Household Members Other:: , works at [employer] Housing: Apartment Patient Tobacco Use Status: Never used Tobacco e-Cigarette/Vaping Use: Never Used service: No Current occupational status: employed Current occupation: [employer] Cognitive needs: No Hearing needs: No Vision needs: Yes Assessment & Plan Assessment & Plan (1) DM type 2 (diabetes mellitus, type 2): Code(s): E11.9 - Type 2 diabetes mellitus without complications Category: Medical Plan: Wt: 87 Kg ( 01/2024 , 03/2024 ), Est kcal needs as per MSJ: 1700 (40% carb, 30% protein/fat) Est fluid needs as per 25-30 ml/d: 2600 Est prot per day as per 1 g/kg bw: 87 Recommend fiber intake : 8-10 g per day and gradually increase to 25-28 g per day for women and 35-38 g for men or as tolerated Recommend sodium intake per day : less than 2000 mg Educated patient on: ( R = reviewed V = verbalizes understanding N/R = needs review N/A = not applicable * Food sources of carbohydrate, adequate serving sizes and its role in various health conditions: R * Differences between complex carbohydrates a simple carbohydrates, role of fiber in diet: R * Lean protein sources of foods: R V * Differences between types of fats and role in diet (mono on saturated fat fatty acids, saturated fatty acids, trans fats): N/R * Food sources of sodium in salt and healthy modifications for heart health in kidney health: NR * Vitamins and minerals: N/R * Healthy plate method concept: R V * Physical activity: Benefits a precaution: R V * Hypoglycemia protocol (rule of 15): R * Dietary prevention of Hyperglycemia: R Patient Instructions: Work on following healthy plate method, one meal a day (choose starchy veg in adequate portion and lean protein) Include non starchy vegetable with one meal at least 1/2 cup a day to start keep hydrated by having water with meals/snacks Coding Level of Care Code Nutr Indiv Subseq (62551) Diagnoses DM type 2 (diabetes mellitus, type 2) E11.9 Time Spent (min) 30
== END 2024-03-27 14:04 | disposition home or self-care (01) ==
PROVIDERS: PCP Internal Medicine; Visit Provider Dietitian, Registered
DX: E11.9 Type 2 diabetes mellitus without complications (principal)

== ENCOUNTER 2024-04-18 06:11 | Outpatient (REF) | payer OTHER, SELFPAY ==
[2024-04-18 10:31] LABS: MANUAL DIFF FLAG NO
[2024-04-18 10:41] LABS: Basophils Percent Auto 0.4 % (0-2); Eosinophils Absolute Auto 0.3 X10*3/uL (0.0-0.4); Hematocrit 42.7 % (37.0-47.0); Imm Gran Abs Auto 0.02 X10*3/uL (0.00-0.03); Imm Gran Pct Auto 0.2 % (0.0-0.4); Lymphocytes Absolute Auto 2.9 X10*3/uL (1.2-4.9); Lymphocytes Percent Auto 35.2 % (20-40); Mean Corpuscular HGB Conc 32.8 g/dl (31.0-35.0); Mean Corpuscular Hemoglobin 28.2 pg (27.0-33.0); Mean Corpuscular Volume 85.9 fL (80.0-98.0); Mean Platelet Volume 10.8 fL (9.4-12.3); Monocytes Absolute Auto 0.7 X10*3/uL (0.1-1.2); Monocytes Percent Auto 7.8 % (2-11); Neutrophils Absolute Auto 4.4 x10*3/uL (2.0-8.3); Neutrophils Percent Auto 52.4 % (45-73); Platelet Count 299 X10*3/uL (160-400); Red Blood Count 4.97 X10*6/uL (4.20-5.50); White Blood Count 8.3 X10*3/uL (4.8-10.8)
[2024-04-18 10:52] LABS: Estimated Average Glucose 189 mg/dL; Hemoglobin A1c % 8.2 % (<6.0)
[2024-04-18 10:59] LABS: Alanine Aminotransferase 26 U/L (0-31); Albumin Level 3.9 g/dL (3.5-5.0); Alkaline Phosphatase 58 U/L (39-117); Anion Gap 15 (12-20); Aspartate Amino Transferase 21 U/L (5-31); Bilirubin Total 0.5 mg/dL (0.0-1.0); Blood Urea Nitrogen 15 mg/dL (9-16); Calcium 9.2 mg/dL (8.4-10.2); Carbon Dioxide 24 mmol/L (22-29); Chloride 106 mmol/L (96-108); Cholesterol 149 mg/dL (<200); Estimated Glomerular Filt Rate > 60; Glucose Fasting 109 mg/dL (60-99); HDL Cholesterol 36 mg/dL (>40); LDL Cholesterol Calculated 99 mg/dL (<100); Potassium 4.2 mmol/L (3.3-5.1); Sodium 141 mmol/L (135-145); Total Protein 7.6 g/dL (6.5-8.0); Triglycerides 71 mg/dL (<150)
[2024-04-18 11:20] LABS: Creatinine Urine 91.79 mg/dL; Microalbum/Creatinine Ratio Ur 9.8 ug/mg cr (<30)
== END 2024-04-18 06:12 | disposition home or self-care (01) ==
LOC: HO.HMGCLDS 06:11
PROVIDERS: PCP Internal Medicine; Visit Provider Internal Medicine
DX: I10 Essential (primary) hypertension (principal); E11.9 Type 2 diabetes mellitus without complications
CPT/HCPCS: 36415; 80053; 80061; 82043; 82570; 83036; 85025

== ENCOUNTER 2024-04-19 12:20 | Outpatient (AMB) | payer OTHER, SELFPAY ==
[2024-04-19 12:26] VITALS: BP 130/78; PULSE 75; O2SAT 100; BMI 34.8
--- NOTE | 2024-04-19 12:26 | A.OFFPC_ITS ---
Vital Signs 04/19/24 12:26 Height 5 ft 2 in Weight 190 lb 2 oz BMI 34.8 BP 130/78 Blood Pressure Location Rt brachial Position Sitting Pulse 75 Pulse Source Pulse Oximeter Pulse Oximetry (%) 100 Oxygen Delivery Method Room Air Intake Visit Reasons: 2 month follow up Allergies metformin Adverse Reaction (Intermediate, Verified 04/19/24 12:29) Abdominal Pain Medication List - Last Reconciled 04/19/24 by Krysten Gage MD albuterol sulfate 90 mcg/actuation 1 puff inhalation QID PRN famotidine (Pepcid) 20 mg PO DAILY folic acid 1 mg PO DAILY lancets (PrivacyStarTouch Delica Plus Lancet) test blood sugar twice a day lidocaine 5% 1 patch topical DAILY metaxalone 800 mg PO TID metformin ER 1,500 mg (2 x 750 mg) PO DAILY methotrexate sodium 10 mg (4 x 2.5 mg) PO QWEEK olmesartan 5 mg PO DAILY OneTouch Ultra Test (blood sugar diagnostic) tid NS Ozempic (semaglutide) 0.25 mg (0.368 mL) subcut QWEEK NS pen needle, diabetic Use to inject insulin once a day prednisone 5 mg PO DAILY Tobacco use date assessed: 04/19/24 Dental Screening Dental Screen Date: 04/19/24 Did you have a dental visit in the last 12 months?: Yes Did you have a dental problem in the last 6 months where you did not have access to dental care?: No Was dental information given to patient?: Patient has dentist HPI 2 month follow up HPI Details Patient presents for follow-up of type 2 diabetes hypertension. She reports significantly improved fasting blood glucose down to 120 from over 200s. 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 Patient follows up with [facility] rheumatology for advanced osteoarthritis of hands and knees and was started on prednisone 5 mg daily with good relief. She could not tolerate methotrexate. Long-term prednisone is not recommended because of poorly controlled diabetes and glaucoma. [facility] Medical History Long-term use of immunosuppressant medication Seronegative rheumatoid arthritis Bilateral foot pain Bilateral swelling of feet Bilateral hand pain Swelling of hand Surgical History No pertinent past surgical history Family History Father Hx of CABG, Onset Age: 55 Maternal Grandfather Mental health disorder Maternal Grandmother Mental health disorder Mother Breast CA, Onset Age: 60 Other Hx of autoimmune disorder Social History Household Members Other:: , works at [employer] Housing: Apartment Patient Tobacco Use Status: Never used Tobacco e-Cigarette/Vaping Use: Never Used service: No Current occupational status: employed Current occupation: [employer] Cognitive needs: No Hearing needs: No Vision needs: Yes Questionnaire PHQ-9 Over the last 2 weeks, how often have you been bothered by any of the following problems? 1. Little interest or pleasure in doing things: more than half the days 2. Feeling down, depressed, or hopeless: more than half the days 3. Trouble falling or staying asleep, or sleeping too much: several days 4. Feeling tired or having little energy: several days 5. Poor appetite or overeating: not at all 6. Feeling bad about yourself - or that you are a failure or have let yourself or your family down: not at all 7. Trouble concentrating on things, such as reading the newspaper or watching television: more than half the days 8. Moving or speaking so slowly that other people could have noticed. Or the opposite - being so fidgety or restless that you have been moving around a lot more than usual: not at all 9. Thoughts that you would be better off or of hurting yourself in some way: not at all Total score: 8 Depression Screening Interpretation: Positive (Patient is established with a therapist and declined taking medications) Depression Screening Follow-up: Existing condition and In treatment Depression Screening Done: Yes 50553 - PHQ-9 Billing: Yes Source: Developed by Drs. Neri Persaud, Sindhu Austin, Darrell Serrano and colleagues, with an educational carmen from [employer]. Thrive Questionnaire Date Thrive assessed: 12/08/23 AUDIT C Alcohol Use Questionnaire (AUDIT-C) 1. How often do you have a drink containing alcohol?: Never 3. How often do you have six or more drinks on one occasion?: Never Total Score: 0 Score Reviewed/Action Taken: Yes CLAY-7 AMB Questionnaire CLAY-7 Date CLAY - 7 assessed: 12/08/23 Source: Developed by Drs. Neri Persaud, Sindhu Austin, Darrell Serrano and colleagues, with an educational carmen from [employer]. Review of Systems Const All systems reviewed & are unremarkable except as noted in HPI and below Eyes Reports no additional complaints ENT Reports no additional complaints Card Reports no additional complaints Resp Reports no additional complaints GI Reports no additional complaints Physical exam (Primary Care) Vital Signs: Last Vital Signs Pulse 75 04/19/24 12:26 BP 130/78 04/19/24 12:26 Pulse Ox 100 04/19/24 12:26 Oxygen Delivery Method Room Air 04/19/24 12:26 BMI result Body Mass Index 34.8 Tobacco/Smoking Status: Tobacco use Status Tobacco use date assessed 04/19/24 04/19/24 12:30 Patient Tobacco Use Status Never used Tobacco 04/19/24 12:30 e-Cigarette/Vaping Use Never Used 04/19/24 12:30 PHQ-9: PHQ-9 Score PHQ-9: Total score 8 04/19/24 12:30 Depression Screening Interpretation: Positive (Patient is established with a therapist and declined taking medications) Depression Screening Follow-up: Existing condition and In treatment Thrive Assessment: Date of Thrive Assessment Date Thrive assessed 12/08/23 04/19/24 12:30 Const General: no acute distress HENMT Ears: hearing grossly normal bilaterally Eyes General: appearance normal, both eyes and all related structures Neck Neck: Yes supple Resp Effort & Inspection: normal respiratory effort Auscultation: clear to auscultation bilaterally Cardio Rhythm: regular rhythm Heart sounds: S1 normal heart sound present and S2 normal heart sound present GI Inspection: Yes normal to inspection Palpation (GI): Soft to palpation Percussion: Yes normal to percussion Auscultation: normal bowel sounds Extrem Other: Osteoarthritic deformities of PIP and DIP joints of both hands Assessment and Plan Assessment & Plan (1) DM type 2 (diabetes mellitus, type 2): Code(s): E11.9 - Type 2 diabetes mellitus without complications Qualifiers: Diabetes mellitus complication status: with hyperglycemia 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 Continue ADA diet increase physical activity weight loss discussed with the patient. She continued to follow-up with [employer] metformin will be increased to 1500 mg and Ozempic 0.25 weekly will be started. Patient will follow-up in 3 months (2) Hypertension: Code(s): I10 - Essential (primary) hypertension Plan: Continue olmesartan (3) Overweight: Code(s): E66.3 - Overweight Plan: Increase physical activity decrease caloric intake weight loss discussed with the patient she will try Ozempic to facilitate weight loss (4) Glaucoma: Comment: ophthalmology Dr. Juan Daniel Quispe Code(s): H40.9 - Unspecified glaucoma Plan: Follows up with Ophthalmology (5) Anxiety and depression: Comment: Established with a therapist, declined medications Code(s): F41.9 - Anxiety disorder, unspecified; F32.A - Depression, unspecified Plan: Continue with a counselor (6) Osteoarthritis of knees, bilateral: Code(s): M17.0 - Bilateral primary osteoarthritis of knee Plan: Patient follows up with orthopedist (7) Osteoarthritis of hands, bilateral: Code(s): M19.041 - Primary osteoarthritis, right hand; M19.042 - Primary osteoarthritis, left hand Plan: Follow-up with rheumatology Orders: Orders Lipid Panel 3 Months E11.65 - Type 2 diabetes mellitus with hyperglycemia, I10 - Essential (primary) hypertension, Z79.4 - termination clerk (current) use of insulin Microalbumin, Random (w Creat) 3 Months E11.65 - Type 2 diabetes mellitus with hyperglycemia, I10 - Essential (primary) hypertension, Z79.4 - [facility] (current) use of insulin Comprehensive [place]. Panel Fast 3 Months E11.65 - Type 2 diabetes mellitus with hyperglycemia, I10 - Essential (primary) hypertension, Z79.4 - [facility] (current) use of insulin Hemoglobin A1c 3 Months E11.65 - Type 2 diabetes mellitus with hyperglycemia, I10 - Essential (primary) hypertension, Z79.4 - [facility] (current) use of insulin Medications: New Ozempic (semaglutide) 0.25 mg (0.368 mL) subcut QWEEK 3 mL 3RF NS Changed From metformin ER 750 mg PO DAILY 180 tabs 1RF To metformin ER 1,500 mg (2 x 750 mg) PO DAILY 180 tabs 1RF Discontinued Lantus Solostar U-100 Insulin (insulin glargine) Discontinued Reason: Doctor's Order 3 units (0.03 mL) subcut QPM 15 mL 3RF N S Coding Level of Care Code Est Pt Level 4 (92000) Diagnoses Type 2 diabetes mellitus with hyperglycemia, with long-term current use of insulin E11.65; Z79.4 Diabetes mellitus complication status: with hyperglycemia Diabetes mellitus 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
== END 2024-04-19 13:13 | disposition home or self-care (01) ==
PROVIDERS: PCP Internal Medicine; Visit Provider Internal Medicine
DX: E11.65 Type 2 diabetes mellitus with hyperglycemia (principal); Z79.4 Long term (current) use of insulin; I10 Essential (primary) hypertension; E66.3 Overweight; H40.9 Unspecified glaucoma; F41.9 Anxiety disorder, unspecified; F32.A Depression, unspecified; M17.0 Bilateral primary osteoarthritis of knee; M19.041 Primary osteoarthritis, right hand; M19.042 Primary osteoarthritis, left hand
CPT/HCPCS: 99214

== ENCOUNTER 2024-06-21 10:10 | Outpatient (AMB) | payer OTHER, SELFPAY ==
[2024-06-21 10:20] VITALS: BMI 34.8
--- NOTE | 2024-06-21 10:20 | A.OFFVIS_ITS ---
Vital Signs 06/21/24 10:20 Height 5 ft 2 in Weight 190 lb 2 oz BMI 34.8 Intake Visit Reasons: OV-Bilateral primary osteoarthritis of knee Intake Note: Kd is a 43 year old female who presents today for a follow up of her bilateral knee OA. RA+. At her last visit it was recommended that she avoid stairs as this was her main trigger of pain. Patient reports her knee pains are more constant, causing weakness. She reports she is having trouble keeping up at work, usually able to work the first two shifts with some discomfort. Accompanied by: Spouse Allergies metformin Adverse Reaction (Intermediate, Verified 06/21/24 10:26) Abdominal Pain HPI HPI OV-Bilateral primary osteoarthritis of knee: Details: Kd is a 43 year old female who presents today for a follow up of her bilateral knee OA. RA+. At her last visit it was recommended that she avoid stairs as this was her main trigger of pain. Patient reports her knee pains are more constant, causing weakness. She reports she is having trouble keeping up at work, usually able to work the first two shifts with some discomfort. [facility] Medical History Long-term use of immunosuppressant medication Seronegative rheumatoid arthritis Bilateral foot pain Bilateral swelling of feet Bilateral hand pain Swelling of hand Surgical History No pertinent past surgical history Family History Father Hx of CABG, Onset Age: 55 Maternal Grandfather Mental health disorder Maternal Grandmother Mental health disorder Mother Breast CA, Onset Age: 60 Other Hx of autoimmune disorder Social History Household Members Other:: , works at [employer] Housing: Apartment Patient Tobacco Use Status: Never used Tobacco e-Cigarette/Vaping Use: Never Used service: No Current occupational status: employed Current occupation: [employer] Cognitive needs: No Hearing needs: No Vision needs: Yes Physical Exam Vital Signs: BMI result Body Mass Index 34.8 Const General: cooperative, healthy appearing, no acute distress, well developed and alert HEENT Head: Yes normal to inspection, Yes normocephalic and Yes atraumatic Mouth: moist mucous membranes Eyes General: appearance normal, both eyes and all related structures EOM: EOMs intact bilaterally Chest Other: no audible wheezing. Resp Other: No audible wheezing Effort & Inspection: normal respiratory effort Back/Spine/Pelvis Cervical Spine: normal cervical lordosis Skin General skin exam: no rashes or lesions noted Neuro General: no focal motor deficits Extrem Other: Varus knee alignment with ttp bilateral medial comaprtments Psych Appearance: grossly normal and well kempt Mental Status: mental status grossly normal Speech and movement: Normal speech and movement present Affect: normal affect Attitude: cooperative Assessment & Plan Assessment & Plan (1) Osteoarthritis of knees, bilateral: Code(s): M17.0 - Bilateral primary osteoarthritis of knee Category: Medical Plan: 43-year-old with bilateral knee osteoarthritis affecting the medial compartments prominently. We discussed treatment options including surgery. At this time however given her age and her work status she would like to avoid surgical intervention. We discussed injections and therapy. We will initiate physical therapy at this time and she can come back to see me in anywhere between 3 and 6 months to continue discussing treatment options. I wrote her a work note to continue current work restrictions. Orders: Orders PT Evaluation and Treatment Today M17.0 - Bilateral primary osteoarthritis of knee Coding Level of Care Code Est Pt Level 3 (91067) Diagnoses Osteoarthritis of knees, bilateral M17.0
== END 2024-06-21 10:51 | disposition home or self-care (01) ==
PROVIDERS: PCP Internal Medicine; Visit Provider Orthopaedic Surgery
DX: M17.0 Bilateral primary osteoarthritis of knee (principal)
CPT/HCPCS: 99213

== ENCOUNTER → 2024-06-21 10:10 | Outpatient (BNVA) | payer OTHER, SELFPAY | PROVIDERS: PCP Internal Medicine; Visit Provider Orthopaedic Surgery | DX: M17.0 Bilateral primary osteoarthritis of knee (principal); M06.00 Rheumatoid arthritis without rheumatoid factor, unspecified site | CPT/HCPCS: 99212 ==

== ENCOUNTER 2024-07-02 08:38 | Outpatient (AMB) | payer OTHER, SELFPAY ==
--- NOTE | 2024-07-02 08:40 | MHC.OFFWIV ---
Intake Vital Signs 07/02/24 08:41 Height 5 ft 2 in Weight 182 lb BMI 33.3 BP 132/86 Blood Pressure Location Lt brachial Position Sitting Pulse 84 Pulse Source Auscultation Temp 98.0 F Temp Source Oral Intake Visit Reasons: EP Lower AB pain Intake Note: pr c/o lower abdominal pain. Started half hour ago Patient Tobacco Use Status: Never used Tobacco Allergies No Known Allergies Allergy (Verified 07/02/24 08:51) Do you need a note to return to daycare/school/sports/work: No HPI HPI Comments History of Present Illness Details Patient is a 43-year-old female complaining of sudden onset of lower abdominal pain about 30 minutes prior to her arrival here. She states it came out of the blue and it is mostly in the right lower quadrant extending towards her belly button. She denies any fevers, nausea, vomiting, diarrhea, burning with urination, increased frequency of urination, chest pain, arm pain or back pain. She states she still has her appendix but she had her gallbladder removed. She tried taking some Tylenol but it was only 10 minutes ago so she is not sure if it is helping. She states it hurts to even walk. She denies that she could be but is basing this mostly on the fact that she is almost in menopause . COUNTS INCLUDE 234 BEDS AT THE [facility] Medical History Long-term use of immunosuppressant medication Seronegative rheumatoid arthritis Bilateral foot pain Bilateral swelling of feet Bilateral hand pain Swelling of hand Surgical History No pertinent past surgical history Family History Father Hx of CABG, Onset Age: 55 Maternal Grandfather Mental health disorder Maternal Grandmother Mental health disorder Mother Breast CA, Onset Age: 60 Other Hx of autoimmune disorder Social History Household Members Other:: , works at [employer] Housing: Apartment Patient Tobacco Use Status: Never used Tobacco e-Cigarette/Vaping Use: Never Used service: No Current occupational status: employed Current occupation: [employer] Cognitive needs: No Hearing needs: No Vision needs: Yes Review of Systems Const All systems reviewed & are unremarkable except as noted in HPI and below Physical Exam Vital Signs: Last Vital Signs Temp 98.0 F 07/02/24 08:41 Pulse 84 07/02/24 08:41 BP 132/86 07/02/24 08:41 BMI result Body Mass Index 33.3 Const General: cooperative, healthy appearing, comfortable, no acute distress and well developed Orientation/consciousness: patient oriented x3 Limitations: no limitations HEENT Head: Yes normal to inspection Ears: hearing grossly normal bilaterally General nose exam: Normal external nose present Face and sinus: Yes normal facial exam Eyes General: appearance normal, both eyes and all related structures Neck Neck: Yes normal visual inspection and Yes full ROM Resp Effort & Inspection: normal respiratory effort and able to speak in complete sentences Auscultation: clear to auscultation bilaterally Cardio Rate: regular rate Rhythm: regular rhythm Heart sounds: normal S1 and S2 GI Inspection: Yes normal to inspection Palpation (GI): Soft to palpation, Tenderness to palpation present (GI) in the RLQ, periumbilically and with rebound tenderness and Guarding due to palpation present (GI) in the RLQ Auscultation: Hypoactive bowel sounds present General: Yes no CVA tenderness Back/Spine/Pelvis Back: no CVA tenderness Skin General skin exam: no rashes or lesions noted Neuro General: patient oriented x3 Extrem General: Yes normal to inspection Results AMB Urinalysis, Automated UA Leukoctes 0 Fabricio/uL Last Edit by Artis Rivera CMA on 07/02/24 08:54 UA Nitrite Negative Last Edit by Artis Rivera CMA on 07/02/24 08:54 UA Urobilinogen 0.2 mg/dL Last Edit by Artis Rivera CMA on 07/02/24 08:54 UA Protein 0 mg/dL Last Edit by Artis Rivera CMA on 07/02/24 08:54 UA pH 6.0 Last Edit by Artis Rivera CMA on 07/02/24 08:54 UA Blood 0 Christian/uL Last Edit by Artis Rivera CMA on 07/02/24 08:54 UA Specific [place] 1.015 Last Edit by Artis Rivera CMA on 07/02/24 08:54 UA Ketone Negative Last Edit by Artis Rivera CMA on 07/02/24 08:54 UA Bilirubin 0 mg/dL Last Edit by Artis Rivera CMA on 07/02/24 08:54 UA Glucose 0 mg/dL Last Edit by Artis Rivera CMA on 07/02/24 08:54 Assessment & Plan Assessment & Plan (1) Lower abdominal pain: Code(s): R10.30 - Lower abdominal pain, unspecified Plan: Vital signs are stable, physical exam revealed exquisite tenderness in the right lower quadrant extending to the periumbilical area positive rebound tenderness. UA neg for infection or blood. 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 Called [facility] ED with expect. Plan See above Orders: Orders AMB Urinalysis Automated Today Z13.9 - Encounter for screening, unspecified Coding Level of Care Code Est Pt Level 5 (63422) Diagnoses Lower abdominal pain R10.30
[2024-07-02 08:41] VITALS: BP 132/86; PULSE 84; TEMP 36.7; BMI 33.3
== END 2024-07-02 09:05 | disposition home or self-care (01) ==
PROVIDERS: PCP Internal Medicine; Visit Provider Physician Assistant
DX: R10.30 Lower abdominal pain, unspecified (principal)
CPT/HCPCS: 81003; 99215

== ENCOUNTER 2024-07-02 09:29 | Emergency (ER) | payer OTHER, SELFPAY ==
--- NOTE | ~2024-07-02 | US_ITS ---
EXAMINATION: US PELVIS US OVARIAN DOPPLER CLINICAL INFORMATION: Lower abdomen pain. COMPARISON: None. TECHNIQUE: Transcutaneous pelvic ultrasound. Color mapping and Doppler spectral analysis of the adnexa Transvaginal scanning was declined by the patient FINDINGS: No suspicious abnormality in the expected region of the vagina. The uterus measures 7.5 x 4.0 x 4.4 cm. The uterus is anteverted. The cervix measures approximately 2.6 cm. No large abnormality of the cervix. No suspicious abnormalities in the region of the cervix. The uterine contour is smooth. The endometrium measures 0.2 cm. No fluid within the endometrial cavity. No focal abnormalities within the myometrium. The right ovary measures approximately 4.4 x 2.3 x 2.6 cm. The calculated right ovarian volume is approximately 14 mL. There is color signal present within the right ovary. Doppler vascular spectra were obtained from the right ovary. No suspicious right adnexal mass or collection The left ovary measures 2.6 x 1.0 x 1.9 cm. The calculated left ovarian volume is approximately 3 mL. There is color signal present within the left ovary. Doppler vascular spectra were obtained from the left ovary. No suspicious left adnexal mass or collection There may be a trace of nonspecific free pelvic fluid US/US pelvic ovarian doppler IMPRESSION: Transcutaneous scanning only. No suspicious abnormality of the uterus or ovaries. Electronically signed by: Rg Mauricio MD 07/02/2024 06:02 PM EDT
--- NOTE | ~2024-07-02 | XR_ITS ---
EXAMINATION: XR CHEST CLINICAL INFORMATION: Shortness of breath COMPARISON: None available. TECHNIQUE: Frontal view of the chest was obtained. FINDINGS: No significant abnormality is noted involving the heart, lungs, mediastinum, bony thorax or soft tissues. XR/XR chest 1V IMPRESSION: No acute process. Electronically signed by: Neri Feldman MD 07/02/2024 03:26 PM EDT
--- NOTE | ~2024-07-02 | CT_ITS ---
EXAMINATION: CT ABDOMEN AND PELVIS WITH CONTRAST CLINICAL INFORMATION: Severe epigastric abdominal pain radiating to right lower quadrant. COMPARISON: No prior. TECHNIQUE: Multidetector volumetric images were obtained from the superior aspect of the liver through the pubic symphysis following administration 85 mL of Omnipaque 350 intravenous contrast. Sagittal and coronal reformatted images were obtained on the technologist's workstation. Oral contrast: No This CT examination was performed using dose optimization techniques as appropriate, variously including the following: *Automated exposure control *Adjustment of mA and/or kV according to patient size (this includes techniques or standardized protocols for targeted exams where dose is matched to indication/reason for exam; i.e. extremities or head) *Use of iterative reconstruction technique DLP: 860 mGy-cm FINDINGS: LUNG BASES: Mild respiratory motion obscuration. Lung bases otherwise clear aside from minor atelectasis. -Heart size normal. GE junction appears normal. LIVER, GALLBLADDER, AND BILIARY TREE: -The liver is normal in size, shape, and attenuation. Tawnya's lobe present. -No focal hepatic lesion or biliary ductal dilatation is present. - Gallbladder is surgically absent. Common duct is normal in size. PANCREAS: Unremarkable. SPLEEN: Unremarkable. ADRENAL GLANDS: Unremarkable. PERITONEUM: No free air or ascites. KIDNEYS AND URETERS: -Kidneys enhance normally and are normal in size. -There is an 8 mm simple cyst in the upper pole of the right kidney laterally. There are no additional cysts or masses in either kidney. -There are no calculi identified. -There is no hydronephrosis or hydroureter. BLADDER: Normal in appearance. GASTROINTESTINAL TRACT: -A normal appendix is present arising from the cecum. No evidence of appendicitis. -The stomach, and duodenum appear grossly normal. There are small duodenal diverticulum in the second and third segments. -The small bowel is normal in caliber and course with no mucosal abnormalities, wall thickening, or inflammation. The terminal ileum images normally into the ileocecal valve. -The colon demonstrates mild to moderate stool retention diffusely. There are no regions of colonic inflammation or wall thickening. Mildly redundant sigmoid colon. -No rectal abnormality detected. ABDOMINAL WALL: -Increased BMI. -No masses identified or abnormal lymph nodes. -Postsurgical changes in the infraumbilical region from prior surgery. -No evidence of abdominal wall or inguinal hernia. -No abnormal fluid collection. LYMPH NODES: No abnormal lymphadenopathy detected. VASCULAR: Normal in appearance. No aortic aneurysm or venous thrombosis.. PELVIC VISCERA: Uterus and ovaries have a normal appearance. Probable tiny fibroid in the uterine fundus superiorly measuring an estimated 8 mm in diameter. -No adnexal masses. -Trace free fluid is likely physiologic. OSSEOUS STRUCTURES: -There is a benign enostosis in the left superior acetabulum. -Bgue-no-pyedyxjx age advanced degenerative changes of the thoracolumbar spine, with an appearance which may suggest DISH versus ankylosing spondylitis. There is bilateral SI joint arthritis with mild inferior spurring, and a few subchondral cystic changes inferiorly. -Advanced degenerative facet disease at L4-L5 bilaterally and L5-S1 left greater than right. -Mild bilateral hip joint degenerative disease. -No acute osseous abnormalities. CT/CT abdomen pelvis w IV con IMPRESSION: 1. No acute abnormalities in the abdomen or pelvis. 2. Moderate constipation/obstipation. 3. Normal appendix. 4. Surgically absent gallbladder. 5. Tiny fibroid in the superior ventral uterus measuring 8 mm. No adnexal abnormalities. 6. Osseous findings as discussed, with findings which may represent DISH, versus possible ankylosing spondylitis. 7. Additional ancillary findings as discussed in the body of the report. Fleischner guidelines were followed.
--- NOTE | ~2024-07-02 | US_ITS ---
EXAMINATION: US PELVIS US OVARIAN DOPPLER CLINICAL INFORMATION: Lower abdomen pain. COMPARISON: None. TECHNIQUE: Transcutaneous pelvic ultrasound. Color mapping and Doppler spectral analysis of the adnexa Transvaginal scanning was declined by the patient FINDINGS: No suspicious abnormality in the expected region of the vagina. The uterus measures 7.5 x 4.0 x 4.4 cm. The uterus is anteverted. The cervix measures approximately 2.6 cm. No large abnormality of the cervix. No suspicious abnormalities in the region of the cervix. The uterine contour is smooth. The endometrium measures 0.2 cm. No fluid within the endometrial cavity. No focal abnormalities within the myometrium. The right ovary measures approximately 4.4 x 2.3 x 2.6 cm. The calculated right ovarian volume is approximately 14 mL. There is color signal present within the right ovary. Doppler vascular spectra were obtained from the right ovary. No suspicious right adnexal mass or collection The left ovary measures 2.6 x 1.0 x 1.9 cm. The calculated left ovarian volume is approximately 3 mL. There is color signal present within the left ovary. Doppler vascular spectra were obtained from the left ovary. No suspicious left adnexal mass or collection There may be a trace of nonspecific free pelvic fluid US/US pelvic complete IMPRESSION: Transcutaneous scanning only. No suspicious abnormality of the uterus or ovaries. Electronically signed by: Rg Mauricio MD 07/02/2024 06:02 PM EDT
[2024-07-02 09:43] VITALS: BP 143/75; PULSE 74; RESP 16; TEMP 36.6; O2SAT 96; BMI 34.4
[2024-07-02 09:57] LABS: MANUAL DIFF FLAG NO
[2024-07-02 09:58] LABS: Basophils Percent Auto 0.3 % (0-2); Eosinophils Absolute Auto 0.1 X10*3/uL (0.0-0.4); Eosinophils Percent Auto 1.4 % (0-4); Hematocrit 42.3 % (37.0-47.0); Hemoglobin 14.5 g/dl (12.0-16.0); Imm Gran Abs Auto 0.02 X10*3/uL (0.00-0.03); Imm Gran Pct Auto 0.2 % (0.0-0.4); Lymphocytes Absolute Auto 2.7 X10*3/uL (1.2-4.9); Lymphocytes Percent Auto 26.3 % (20-40); Mean Corpuscular HGB Conc 34.3 g/dl (31.0-35.0); Mean Corpuscular Hemoglobin 28.6 pg (27.0-33.0); Mean Corpuscular Volume 83.4 fL (80.0-98.0); Mean Platelet Volume 9.5 fL (9.4-12.3); Monocytes Absolute Auto 0.6 X10*3/uL (0.1-1.2); Monocytes Percent Auto 6.1 % (2-11); Neutrophils Absolute Auto 6.7 x10*3/uL (2.0-8.3); Neutrophils Percent Auto 65.7 % (45-73); Platelet Count 302 X10*3/uL (160-400); Red Blood Count 5.07 X10*6/uL (4.20-5.50); Red Cell Distribution Width 13.2 % (11.0-16.0); White Blood Count 10.2 X10*3/uL (4.8-10.8)
[2024-07-02 10:21] LABS: Alanine Aminotransferase 17 U/L (0-31); Albumin Level 4.1 g/dL (3.5-5.0); Alkaline Phosphatase 68 U/L (39-117); Anion Gap 12 (12-20); Aspartate Amino Transferase 20 U/L (5-31); Bilirubin Direct 0.2 mg/dL (0.0-0.5); Bilirubin Total 0.4 mg/dL (0.0-1.0); Blood Urea Nitrogen 19 mg/dL (9-16); Calcium 9.7 mg/dL (8.4-10.2); Carbon Dioxide 22 mmol/L (22-29); Chloride 106 mmol/L (96-108); Creatinine Clr Calc Pharmacy 119.9; Estimated Glomerular Filt Rate > 60; Glucose Random 119 mg/dL (60-115); Lipase 22 U/L (8-78); Potassium 4.2 mmol/L (3.3-5.1); Sodium 136 mmol/L (135-145)
--- NOTE | 2024-07-02 14:12 | ED_ITS ---
HPI - Abdominal Pain General Chief Complaint: Abdominal Pain Stated Complaint: Sharp abd pain Time Seen by Provider: 07/02/24 14:00 Source: patient Mode of arrival: ambulatory Limitations: no limitations History of Present Illness ED Provider: Abdiel ENRIQUE HPI narrative: This is a 43-year-old female history of seronegative rheumatoid arthritis, diabetes, GERD, anxiety, depression, hypertension, obesity, glaucoma presenting to the emergency of lower abdominal pain that started earlier today she states it came on all of a sudden pain is from epigastric region down to pubis region. Patient still has her appendix however has had her gallbladder removed. Has tried [id number] Tylenol with little to no relief. Pain worse with walking and movements. She feels very similar pain each time she recieves ozempic. Denies risk for She denies fevers, chills, nausea, vomiting, diarrhea, changes in urination, chest pain, shortness of breath, back pain, shoulder pain. Recently started ozempic for weight loss pruposes Related Data Previous Rx's ?Medication ?Instructions ?Recorded famotidine 20 mg tablet (Pepcid) 20 mg PO DAILY #90 tabs 10/27/23 lancets 33 gauge (OneTouch Delica #200 ea 11/14/23 Plus Lancet) albuterol sulfate 90 mcg/actuation 1 puff inhalation QID PRN 11/28/23 aerosol inhaler shortness of breath or wheezing #6.7 grams pen needle, diabetic 32 gauge x #100 ea 12/08/2303/28 OneTouch Ultra Test (blood sugar #100 ea 01/04/24 diagnostic) olmesartan 5 mg tablet 5 mg PO DAILY #90 tabs 01/04/24 folic acid 1 mg tablet 1 mg PO DAILY #90 tabs 03/01/24 methotrexate sodium 2.5 mg tablet 10 mg (4 x 2.5 mg) PO QWEEK #16 03/01/24 tabs lidocaine 5 % topical patch 1 patch topical DAILY #30 ea 03/27/24 Ozempic 0.25 mg or 0.5 mg (2 mg/3 0.25 mg (0.368 mL) subcut QWEEK #3 04/19/24 mL) subcutaneous pen injector mL (semaglutide) metformin 750 mg tablet,extended 1,500 mg (2 x 750 mg) PO DAILY 04/19/24 release 24 hr #180 tabs Allergies Allergy/AdvReac Type Severity Reaction Status Date / Time No Known Allergies Allergy Verified 07/02/24 09:44 Review of Systems Review of Systems Yes all other systems are reviewed and are negative [facility] Past Medical History Attestation statement: The following information was validated with the patient. Source: old records reviewed and nursing notes reviewed Medical History Long-term use of immunosuppressant medication Seronegative rheumatoid arthritis Bilateral foot pain Bilateral swelling of feet Bilateral hand pain Swelling of hand Surgical History No pertinent past surgical history Family History Family History Father Hx of CABG, Onset Age: 55 Maternal Grandfather Mental health disorder Maternal Grandmother Mental health disorder Mother Breast CA, Onset Age: 60 Other Hx of autoimmune disorder Social History Social History Household Members Other:: , works at [employer] Housing: Apartment Patient Tobacco Use Status: Never used Tobacco Smoked in Last 30 Days: No e-Cigarette/Vaping Use: Never Used Use of substances other than those prescribed or required for medical reasons: No Advance Directives: No Advance Directives Information Provided: Yes Patient : No service: No Current occupational status: employed Current occupation: [employer] Cognitive needs: No Hearing needs: No Vision needs: Yes Physical Exam ED Vital Signs: Vital Signs - 24 hr 07/02/24 09:43 07/02/24 14:31 07/02/24 17:55 Temperature 97.8 F 97.0 F 97.9 F Pulse Rate 74 74 73 Respiratory Rate 16 14 18 Blood Pressure 143/75 H 133/71 130/79 Pulse Oximetry 96 100 100 Oxygen Delivery Method Room Air Room Air Room Air BMI result Body Mass Index 34.4 vss Appearance: Alert.? Oriented X3.? No acute distress.? Head: Normocephalic, atraumatic, no step-offs or deformities Eyes: Pupils equal, round and reactive to light.? ENT: Pharynx normal.? Neck: Normal inspection.? Neck supple.? CVS: Normal heart rate and rhythm.? Pulses normal.? Respiratory: No respiratory distress.? Breath sounds normal.? Abdomen: Soft and + RLQ ttp on exam .? Skin: Skin warm and dry.? Normal skin color.? Normal skin turgor.? Extremities: No lower extremity edema.? No calf ttp. 5/5 strength to bilateral upper and lower extremities Neuro: Oriented X 3.? No motor deficit.? No sensory deficit. CN 2-12 intact Course Reevaluation(s) Reevaluation #1: CBC unremarkable. Chemistry no acute findings needing intervention. UA without infection. Abdominal CT with no acute abnormalities in the abdomen or pelvis moderate constipation obstipation normal appendix surgically absent gallbladder tiny fibroids in the superior ventral uterus measured 8 mm osseous findings as discussed which could red present DISH versus possible ankylosing spondylitis ancillary findings as discussed in the body of the report nothing to be done acutely about these. Pelvic ultrasound is not yet resulted preliminary read with arterial and venous flow and fibroids. Will have patient follow-up with OBGYN. Educated patient on diagnosis and treatment plan, answered all question, patient verbalizes understanding. At this time patient will be discharged home, advised to return with new or worsening symptoms. Educated on worrisome signs and symptoms and when to return. At this time I feel comfortable discharge home. Time: 20:04 Medical Decision Making Medical Decision Making [facility] Narrative: 43-year-old female presents with diffuse lower abd paint that started this am. She still has her appendix Physical exam right lower quadrant tenderness on exam. History and physical exam concerning for musculoskeletal pain versus dysmotility d/o versus appendicitis versus UTI. Unlikely torsion, ectopic , metabolic derangements, acute abdomen, pancreatitis, obstruction, diverticulitis. Plan-labs, urine, Differential Diagnosis Differential Diagnoses: The differential diagnosis associated with the presentation includes History and physical exam concerning for musculoskeletal pain versus dysmotility d/o versus appendicitis versus UTI. Unlikely torsion, ectopic , metabolic derangements, acute abdomen, pancreatitis, obstruction, diverticulitis. Admission/Observation Consideration of admission/observation: Escalation of care including admission/observation considered possible Lab Data [facility] Lab Attestation statement: I reviewed the patient's lab results. 07/02/24 09:53 07/02/24 09:53 Labs: Lab Results 07/02/24 07/02/24 Range/Units 09:53 14:14 WBC 10.2 (4.8-10.8) X10*3/uL RBC 5.07 (4.20-5.50) X10*6/uL Hgb 14.5 (12.0-16.0) g/dl Hct 42.3 (37.0-47.0) % MCV 83.4 (80.0-98.0) fL MCH 28.6 (27.0-33.0) pg MCHC 34.3 (31.0-35.0) g/dl RDW 13.2 (11.0-16.0) % Plt Count 302 (160-400) X10*3/uL MPV 9.5 (9.4-12.3) fL Immature Gran % (Auto) 0.2 (0.0-0.4) % Neut % (Auto) 65.7 (45-73) % Lymph % (Auto) 26.3 (20-40) % [place] % (Auto) 6.1 (2-11) % Eos % (Auto) 1.4 (0-4) % Baso % (Auto) 0.3 (0-2) % Lymph # (Auto) 2.7 (1.2-4.9) X10*3/uL [place] # (Auto) 0.6 (0.1-1.2) X10*3/uL Eos # (Auto) 0.1 (0.0-0.4) X10*3/uL Baso # (Auto) 0.0 (0.0-0.2) X10*3/uL Abs Immat Gran (auto) 0.02 (0.00-0.03) X10*3/uL Absolute Neuts (auto) 6.7 (2.0-8.3) x10*3/uL Absolute Nucleated RBC 0.000 (0.0-0.012) X10*3/uL Nucleated RBC % (auto) 0.0 (0.0-0.2) /100WBC Sodium 136 (135-145) mmol/L Potassium 4.2 (3.3-5.1) mmol/L Chloride 106 (96-108) mmol/L Carbon Dioxide 22 (22-29) mmol/L Anion Gap 12 (12-20) BUN 19 H (9-16) mg/dL Creatinine 0.60 (0.5-1.4) mg/dL Estim Creat Clear Calc 119.9 Estimated GFR > 60 Random Glucose 119 H (60-115) mg/dL Calcium 9.7 (8.4-10.2) mg/dL Total Bilirubin 0.4 (0.0-1.0) mg/dL Direct Bilirubin 0.2 (0.0-0.5) mg/dL AST 20 (5-31) U/L ALT 17 (0-31) U/L Alkaline Phosphatase 68 (39-117) U/L Total Protein 8.0 (6.5-8.0) g/dL Albumin 4.1 (3.5-5.0) g/dL Lipase 22 (8-78) U/L Beta HCG, Quant < 2 mIU/mL Urine Color Yellow Urine Appearance Clear Urine pH 6.5 (5.0-9.0) Ur Specific [place] 1.015 (1.005-1.025) Urine Protein Negative (Neg-Trace) mg/dL Urine Glucose (UA) Negative (Negative) mg/dL Urine Ketones Trace (Negative) mg/dL Urine Blood Negative (Negative) Urine Nitrite Negative (Negative) Ur Leukocyte Esterase Negative (Negative) Independent Interpretation I performed an independent interpretation of an: CT Scan Radiology Impression Discussion of test interpretation with radiology: I have reviewed the radiologist's reading. External Record Review External record reviewed: Inpatient record, Office record, Outpatient record, Prior outpatient labs, Prior outpatient radiology, Primary care record and Outside ED record Medications Administered Discontinued Medications Generic Name Dose Route Start Last Admin Trade Name Freq PRN Reason Stop Dose Admin Acetaminophen 975 mg 07/02/24 19:22 07/02/24 19:51 Acetaminophen 325 Mg Tablet PO 07/02/24 19:23 975 mg ONCE ONE Administration Iohexol 100 ml 07/02/24 15:07 07/02/24 15:08 Iohexol 350 Mg/Ml 100 Ml Infus..Btl IV 07/02/24 15:08 85 ml ONCE ONE Administration Morphine Sulfate 4 mg 07/02/24 16:36 07/02/24 18:18 Morphine Sulfate 4 Mg/Ml Cartridge IVPUSH 07/02/24 16:37 Not Given ONCE ONE Protocol Discharge Plan Discharge Clinical Impression: Lower abdominal pain, Medication side effects Patient Disposition: Home, Self-Care Instructions: Abdominal Pain (ED) Additional Instructions: Take your medications as prescribed. If you were prescribed antibiotics today, it is important that you take your medication to their entirety, do not skip any doses, do not finish them early. Follow-up with your primary care provider this week. Return to the emergency department with new or worsening symptoms. Such as fevers, chills, chest pain, shortness of breath, nausea, vomiting, dizziness, headache, vision changes, lethargy In case of emergency call 911 CT/CT abdomen pelvis w IV con IMPRESSION: 1. No acute abnormalities in the abdomen or pelvis. 2. Moderate constipation/obstipation. 3. Normal appendix. 4. Surgically absent gallbladder. 5. Tiny fibroid in the superior ventral uterus measuring 8 mm. No adnexal abnormalities. 6. Osseous findings as discussed, with findings which may represent DISH, versus possible ankylosing spondylitis. 7. Additional ancillary findings as discussed in the body of the report. Fleischner guidelines were followed. Prescriptions: No Action (DME) lancets [OneTouch Delica Plus Lancet] 33 gauge misc See Rx Instructions .Route Qty: 200 3RF Rx Instructions: test blood sugar twice a day (DME) pen needle, diabetic 32 gauge x 5/16 needle See Rx Instructions .Route Qty: 100 3RF Rx Instructions: Use to inject insulin once a day olmesartan 5 mg tablet 5 mg PO DAILY Qty: 90 3RF (DME) OneTouch Ultra Test Strip See Rx Instructions .Route Qty: 100 3RF Rx Instructions: tid metformin 750 mg tablet extended release 24 hr 1,500 mg PO DAILY Qty: 180 1RF Ozempic 0.25 mg or 0.5 mg (2 mg/3 mL) pen injector 0.25 mg subcut QWEEK Qty: 3 3RF famotidine [Pepcid] 20 mg tablet 20 mg PO DAILY Qty: 90 0RF albuterol sulfate 90 mcg/actuation HFA aerosol inhaler 1 puff inhalation QID PRN (Reason: shortness of breath or wheezing) Qty: 6.7 0RF lidocaine 5 % adhesive patch,medicated 1 patch topical DAILY Qty: 30 0RF Rx Instructions: leave on most painful area for up to 12 hrs methotrexate sodium 2.5 mg tablet 10 mg PO QWEEK Qty: 16 1RF folic acid 1 mg tablet 1 mg PO DAILY Qty: 90 0RF Referrals: Krysten Gage MD [Primary Care Provider] - 2 days Print Language: Indonesian
[2024-07-02 14:21] LABS: Appearance Urine Clear; Color Urine Yellow; Glucose Urine UA Negative (Negative); Leukocyte Esterase Urine Negative (Negative); Nitrite Urine Negative (Negative); PH 6.5 (5.0-9.0); Specific Gravity - Urine 1.015 (1.005-1.025); Urine Blood Negative (Negative); Urine Ketones Trace mg/dL (Negative); Urine Protein Negative (Neg-Trace)
--- NOTE | 2024-07-02 14:27 | PC.NURSE ---
a&ox4. vss and up to date. pt presents to the ED w/ sudden onset epigastric abd pain radiating to RLQ x 8 am. pt went to clinic this am and was advised to come to ED to be evaluated to rule out appendicitis. pt verbalizes nausea. denies any episodes of vomiting/diarrhea/fever/chills. abd tender w/ palpation. labs obtained in triage. pt ambulates to the restroom w/ a strong/steady independent gait - urine obtained/sent to lab. 20gIV placed in the left AC. pt waiting to go to CT at this time. no sob/wob noted. respirations even/unlabored. family bedside for support. plan of care ongoing.
[2024-07-02 14:31] VITALS: BP 133/71; PULSE 74; RESP 14; TEMP 36.1; O2SAT 100
[2024-07-02 15:01] LABS: HCG Quantitative < 2 mIU/mL
[2024-07-02] MEDS: iohexoL 350 MG/ML 100 ML INFUS..BTL IV (15:08)
[2024-07-02 17:55] VITALS: BP 130/79; PULSE 73; RESP 18; TEMP 36.6; O2SAT 100
[2024-07-02] MEDS: Acetaminophen 325 MG TABLET 975 MG PO (19:51)
[2024-07-02 20:11] VITALS: BP 127/76; PULSE 81; RESP 16; TEMP 36.7; O2SAT 97
[2024-07-02 20:12] VITALS: BP 127/76; PULSE 81; RESP 16; TEMP 36.7; O2SAT 97
== END 2024-07-02 20:13 | disposition home or self-care (01) ==
PROVIDERS: Physician Assistant; Emergency Provider Emergency Medicine; PCP Internal Medicine
DX: R10.823 Right lower quadrant rebound abdominal tenderness (principal); R10.13 Epigastric pain; R06.02 Shortness of breath; Z79.899 Other long term (current) drug therapy
CPT/HCPCS: 36415; 71045; 74177; 76856; 80048; 80076; 81003; 83690; 84702; 85025; 93975; 99284; 99285; Q9967

== ENCOUNTER → 2024-07-02 14:12 | Outpatient (BNV) | payer OTHER, SELFPAY | PROVIDERS: Emergency Provider Emergency Medicine; PCP Internal Medicine; Visit Provider Radiology Diagnostic Radiology | DX: R10.13 Epigastric pain (principal) | CPT/HCPCS: 74177 ==

== ENCOUNTER 2024-07-19 10:13 | Outpatient (AMB) | payer OTHER, SELFPAY ==
--- NOTE | 2024-07-19 10:17 | MHC.PC.OV ---
Vital Signs 07/19/24 10:20 Height 5 ft 2 in Weight 184 lb BMI 33.7 BP 114/72 Blood Pressure Location Lt brachial Position Sitting Pulse 68 Pulse Source Pulse Oximeter Pulse Oximetry (%) 98 Oxygen Delivery Method Room Air Intake Visit Reasons: 3 month follow up Intake Note: Patient here to f/u on ozempic and pelvic pain that she has been having. She states she was in the ED and was told that the pain was related to the ozempic which she does not believe it is. Allergies No Known Allergies Allergy (Verified 07/19/24 10:28) Medication List - Last Reconciled 07/19/24 by Krysten Gage MD albuterol sulfate 90 mcg/actuation 1 puff inhalation QID PRN famotidine (Pepcid) 20 mg PO DAILY folic acid 1 mg PO DAILY lancets (OneTouch Delica Plus Lancet) test blood sugar twice a day lidocaine 5% 1 patch topical DAILY metformin ER 1,500 mg (2 x 750 mg) PO DAILY methotrexate sodium 10 mg (4 x 2.5 mg) PO QWEEK olmesartan 5 mg PO DAILY OneTouch Ultra Test (blood sugar diagnostic) tid NS Ozempic (semaglutide) 0.25 mg (0.368 mL) subcut QWEEK NS pen needle, diabetic Use to inject insulin once a day Tobacco use date assessed: 04/19/24 Dental Screening Dental Screen Date: 04/19/24 HPI 3 month follow up HPI Details Patient presents for the follow-up of type 2 diabetes hypertension. She reports fasting blood glucose down to 80s and patient lost 15 lb. She reports slight stomach upset for up to 3 days after injection of Ozempic. [facility], LAT[facility] Medical History Long-term use of immunosuppressant medication Seronegative rheumatoid arthritis Bilateral foot pain Bilateral swelling of feet Bilateral hand pain Swelling of hand Surgical History No pertinent past surgical history Family History Father Hx of CABG, Onset Age: 55 Maternal Grandfather Mental health disorder Maternal Grandmother Mental health disorder Mother Breast CA, Onset Age: 60 Other Hx of autoimmune disorder Social History Household Members Other:: , works at [employer] Housing: Apartment Patient Tobacco Use Status: Never used Tobacco e-Cigarette/Vaping Use: Never Used service: No Current occupational status: employed Current occupation: [employer] Cognitive needs: No Hearing needs: No Vision needs: Yes Questionnaire PHQ-9 Over the last 2 weeks, how often have you been bothered by any of the following problems? 1. Little interest or pleasure in doing things: more than half the days 2. Feeling down, depressed, or hopeless: several days 3. Trouble falling or staying asleep, or sleeping too much: more than half the days 4. Feeling tired or having little energy: nearly every day 5. Poor appetite or overeating: more than half the days 6. Feeling bad about yourself - or that you are a failure or have let yourself or your family down: several days 7. Trouble concentrating on things, such as reading the newspaper or watching television: more than half the days 8. Moving or speaking so slowly that other people could have noticed. Or the opposite - being so fidgety or restless that you have been moving around a lot more than usual: more than half the days 9. Thoughts that you would be better off or of hurting yourself in some way: not at all Total score: 15 Depression Screening Interpretation: Positive Depression Screening Follow-up: Existing condition and Declines treatment Depression Screening Done: Yes 50983 - PHQ-9 Billing: Yes Source: Developed by Drs. Neri Persaud, Sindhu Austin, Darrell Serrano and colleagues, with an educational carmen from [employer]. Thrive Questionnaire Date Thrive assessed: 12/08/23 I am a: Patient What is your living situation today?: I have a place to live, but I am worried about losing it in the future Within the past 12 months, did the food you bought not last and you didn't have the money to get more?: Often true Within the past 12 months, did you worry whether your food would run out before you got money to buy more?: Sometimes True Do you have trouble paying for medicines?: Yes Do you have trouble getting transportation to medical appointments?: No Do you have trouble paying your heating and electricity bill?: No Do you have trouble taking care of your child, family member or friend?: No Do you have trouble with day-to-day activities such as bathing, preparing meals, shopping, managing finances, etc.?: Yes Are you currently unemployed and looking for a job?: No Are you interested in more education?: No Please select the resources that you would like help with: Food Currently or been in a relationship where the following occur: No concerns reported THRIVE Score: 3 AUDIT C Alcohol Use Questionnaire (AUDIT-C) 1. How often do you have a drink containing alcohol?: Never Total Score: 0 CLAY-7 AMB Questionnaire CLAY-7 Date CLAY - 7 assessed: 12/08/23 Feeling nervous, anxious, or on edge: 2 = More than half the days Not being able to stop or control worryin = More than half the days Worrying too much about different things: 2 = More than half the days Trouble relaxin = Several days Being so restless that it is hard to sit still: 2 = More than half the days Becoming easily annoyed or irritable: 3 = Nearly every day Feeling afraid as if something awful might happen: 1 = Several days Total CLAY-7 score (0-4 normal; 5-9 mild; 10-14 moderate; 15-21 severe): 13 Source: Developed by Drs. Neri Persaud, Sindhu Austin, Darrell Serrano and colleagues, with an educational carmen from [employer]. Review of Systems Const All systems reviewed & are unremarkable except as noted in HPI and below Eyes Reports no additional complaints ENT Reports no additional complaints Card Reports no additional complaints Resp Reports no additional complaints GI Reports no additional complaints Physical exam (Primary Care) Vital Signs: Last Vital Signs Pulse 68 07/19/24 10:20 BP 114/72 07/19/24 10:20 Pulse Ox 98 07/19/24 10:20 Oxygen Delivery Method Room Air 07/19/24 10:20 BMI result Body Mass Index 33.7 Tobacco/Smoking Status: Tobacco use Status Tobacco use date assessed 04/19/24 07/19/24 10:19 Patient Tobacco Use Status Never used Tobacco 07/19/24 10:19 e-Cigarette/Vaping Use Never Used 07/19/24 10:19 PHQ-9: PHQ-9 Score PHQ-9: Total score 15 07/19/24 10:49 Depression Screening Interpretation: Positive Depression Screening Follow-up: Existing condition and Declines treatment Thrive Assessment: Date of Thrive Assessment Date Thrive assessed 12/08/23 07/19/24 10:19 Currently or been in a relationship where the following occur: No concerns reported Const General: no acute distress HENMT Head: Yes normal to inspection Mouth: Normal oral and palatal mucosa present Neck Neck: Yes supple Resp Effort & Inspection: normal respiratory effort Auscultation: clear to auscultation bilaterally Cardio Rhythm: regular rhythm Heart sounds: S1 normal heart sound present and S2 normal heart sound present GI Inspection: Yes normal to inspection Palpation (GI): Soft to palpation Percussion: Yes normal to percussion Auscultation: normal bowel sounds Results AMB Hemoglobin A1c AMB Hemoglobin A1c 6.8 % Last Edit by MEGHAN Lua on 07/19/24 10:50 Results Reviewed Results Reviewed: Laboratory Last Values Hgb A1c (Clinic) 6.8 % (4.0-6.0) H 07/19/24 10:49 Assessment and Plan Assessment & Plan (1) DM type 2 (diabetes mellitus, type 2): Code(s): E11.9 - Type 2 diabetes mellitus without complications Qualifiers: Diabetes mellitus complication status: with hyperglycemia Diabetes mellitus laborer marine terminal insulin use: with laborer marine terminal use Qualified Code(s): E11.65 - Type 2 diabetes mellitus with hyperglycemia; Z79.4 - exterminator helper termite (current) use of insulin Plan: A1c 6.7, ADA diet increase physical activity discussed with the patient . she will increase Ozempic to 0.5 mg weekly and continue metformin. Pt will follow-up in 3 months with a fasting labs before (2) Hypertension: Code(s): I10 - Essential (primary) hypertension Plan: Continue olmesartan Orders: Orders Hemoglobin A1c 3 Months E11.65 - Type 2 diabetes mellitus with hyperglycemia, I10 - Essential (primary) hypertension, Z79.4 - USP (current) use of insulin Comprehensive [place]. Panel Fast 3 Months E11.65 - Type 2 diabetes mellitus with hyperglycemia, I10 - Essential (primary) hypertension, Z79.4 - exterminator helper termite (current) use of insulin Complete Blood Count Auto Diff 3 Months E11.65 - Type 2 diabetes mellitus with hyperglycemia, I10 - Essential (primary) hypertension, Z79.4 - exterminator helper termite (current) use of insulin Lipid Panel 3 Months E11.65 - Type 2 diabetes mellitus with hyperglycemia, I10 - Essential (primary) hypertension, Z79.4 - exterminator helper termite (current) use of insulin Microalbumin, Random (w Creat) 3 Months E11.65 - Type 2 diabetes mellitus with hyperglycemia, I10 - Essential (primary) hypertension, Z79.4 - exterminator helper termite (current) use of insulin AMB Hemoglobin A1c Today .65 - Type 2 diabetes mellitus with hyperglycemia, Z79.4 - USP (current) use of insulin Medications: New Ozempic (semaglutide) 0.5 mg (0.736 mL) subcut QWEEK 9 mL 2RF NS Discontinued Ozempic (semaglutide) Discontinued Reason: Doctor's Order 0.25 mg (0.368 mL) subcut QWEEK 3 mL 3RF NS Coding Level of Care Code Est Pt Level 3 (10081) Diagnoses Type 2 diabetes mellitus with hyperglycemia, with long-term current use of insulin .; Z79.4 Diabetes mellitus complication status: with hyperglycemia Diabetes mellitus long-term insulin use: with laborer marine terminal use Hypertension I10
[2024-07-19 10:20] VITALS: BP 114/72; PULSE 68; O2SAT 98; BMI 33.7
== END 2024-07-19 10:51 | disposition home or self-care (01) ==
PROVIDERS: PCP Internal Medicine; Visit Provider Internal Medicine
DX: E11.65 Type 2 diabetes mellitus with hyperglycemia (principal); Z79.4 Long term (current) use of insulin; I10 Essential (primary) hypertension
CPT/HCPCS: 83036; 99213

== ENCOUNTER 2024-08-01 12:36 | Outpatient (AMB) | payer OTHER, SELFPAY ==
[2024-08-01 13:11] VITALS: BMI 35.1
--- NOTE | 2024-08-01 13:11 | A.OFFVIS_ITS ---
VS Expanded 08/01/24 13:11 Height 5 ft 2 in Weight 191 lb 12.835 oz BMI 35.1 Intake Visit Reasons: T2DM Allergies No Known Allergies Allergy (Verified 07/19/24 10:28) Nutrition Presentation Details: Pt presents for MNT f/u for T2DM Pt reports doing well, working on following healthy plate method reports having had some GI symptoms last month, now feeling better and tolerating foods much better Pt reports typically having solid foods and very little water , march 12 oz/day BS Monitoring Most Recent Diabetes Results: Microalb/Creat Ratio 9.8 ug/mg cr (<30) 04/18/24 Cholesterol 149 mg/dL (<200) 04/18/24 HDL Cholesterol 36 mg/dL (>40) L 04/18/24 Triglycerides 71 mg/dL (<150) 04/18/24 Creatinine 0.60 mg/dL (0.5-1.4) 07/02/24 Blood Urea Nitrogen 19 mg/dL (9-16) H 07/02/24 Sodium 136 mmol/L (135-145) 07/02/24 Potassium 4.2 mmol/L (3.3-5.1) 07/02/24 Chloride 106 mmol/L (96-108) 07/02/24 Carbon Dioxide 22 mmol/L (22-29) 07/02/24 Calcium 9.7 mg/dL (8.4-10.2) 07/02/24 AST 20 U/L (5-31) 07/02/24 ALT 17 U/L (0-31) 07/02/24 Total Protein 8.0 g/dL (6.5-8.0) 07/02/24 Albumin 4.1 g/dL (3.5-5.0) 07/02/24 [facility] Medical History Long-term use of immunosuppressant medication Seronegative rheumatoid arthritis Bilateral foot pain Bilateral swelling of feet Bilateral hand pain Swelling of hand Surgical History No pertinent past surgical history Family History Father Hx of CABG, Onset Age: 55 Maternal Grandfather Mental health disorder Maternal Grandmother Mental health disorder Mother Breast CA, Onset Age: 60 Other Hx of autoimmune disorder Social History Household Members Other:: , works at [employer] Housing: Apartment Patient Tobacco Use Status: Never used Tobacco e-Cigarette/Vaping Use: Never Used service: No Current occupational status: employed Current occupation: [employer] Cognitive needs: No Hearing needs: No Vision needs: Yes Assessment & Plan Assessment & Plan (1) DM type 2 (diabetes mellitus, type 2): Code(s): E11.9 - Type 2 diabetes mellitus without complications Category: Medical Qualifiers: Diabetes mellitus complication status: with hyperglycemia Diabetes mellitus intermission coordinator insulin use: with jail use Qualified Code(s): E11.65 - Type 2 diabetes mellitus with hyperglycemia; Z79.4 - long-term (current) use of insulin Plan: Wt: 87 Kg ( 01/2024 , 03/2024 , 07/2024) Est kcal needs as per MSJ: 1700 (40% carb, 30% protein/fat) Est fluid needs as per 25-30 ml/d: 2600 Est prot per day as per 1 g/kg bw: 87 Recommend fiber intake : 8-10 g per day and gradually increase to 25-28 g per day for women and 35-38 g for men or as tolerated Recommend sodium intake per day : less than 2000 mg Educated patient on: ( R = reviewed V = verbalizes understanding N/R = needs review N/A = not applicable * Food sources of carbohydrate, adequate serving sizes and its role in various health conditions: R * Differences between complex carbohydrates a simple carbohydrates, role of fiber in diet: R * Lean protein sources of foods: R V * Differences between types of fats and role in diet (mono on saturated fat fatt y acids, saturated fatty acids, trans fats): N/R * Food sources of sodium in salt and healthy modifications for heart health in kidney health: NR * Vitamins and minerals: N/R * Healthy plate method concept: R V * Physical activity: Benefits a precaution: R V * Hypoglycemia protocol (rule of 15): R * Dietary prevention of Hyperglycemia: R Patient Instructions: Aim at having water with meals and snacks, aim at having 24-32 oz /day Include at least 2 serving of vegetables per day following healthy plate method Coding Level of Care Code Nutr Indiv Subseq (36014) Diagnoses Type 2 diabetes mellitus with hyperglycemia, with long-term current use of insulin E11.65; Z79.4 Diabetes mellitus complication status: with hyperglycemia Diabetes mellitus intermission coordinator insulin use: with intermission coordinator use Time Spent (min) 20
== END 2024-08-01 13:34 | disposition home or self-care (01) ==
PROVIDERS: PCP Internal Medicine; Visit Provider Dietitian, Registered
DX: E11.65 Type 2 diabetes mellitus with hyperglycemia (principal); Z79.4 Long term (current) use of insulin

== ENCOUNTER → 2024-08-01 12:36 | Outpatient (BNVA) | payer OTHER, SELFPAY | PROVIDERS: PCP Internal Medicine; Visit Provider Dietitian, Registered | DX: E11.65 Type 2 diabetes mellitus with hyperglycemia (principal); Z79.4 Long term (current) use of insulin | CPT/HCPCS: 97803 ==

== ENCOUNTER 2024-08-08 13:32 | Outpatient (AMB) | payer OTHER, SELFPAY ==
--- NOTE | 2024-08-08 13:34 | A.OFFVIS_ITS ---
Vital Signs 08/08/24 13:38 Height 5 ft 2 in Weight 182 lb 1.629 oz BMI 33.3 BP 115/72 Blood Pressure Location Rt brachial Position Sitting Pulse 68 Pulse Source Pulse Oximeter Pulse Oximetry (%) 97 Oxygen Delivery Method Room Air Intake Visit Reasons: SeroNeg RA/Hand and feet pain. Intake Note: Patient presents for SeroNeg RA/hand and feet pain. Brickmason Apprentice Required: Yes Brickmason Apprentice Language: Real Estate Manager Services: Brickmason Apprentice Present Brickmason Apprentice Name: Jay Jay [id number] Information Interpreted: non-clinical & clinical Allergies No Known Allergies Allergy (Verified 08/08/24 13:37) HPI Comments Details: This is a 44-year-old female recently diagnosed with seronegative RA by Angela Howell who returns for follow-up. She was prescribed methotrexate 10 mg weekly. She stated that she had GI upset, nausea and fatigue with it. She can not tell whether she had improvement or not. She has run out now for the past 1 or 2 months. She continues to have pain in her hands, low back, knees, feet. Morning stiffness lasts 15-30 minutes. She takes Tylenol Arthritis. Denies history suggestive of uveitis [facility] Medical History (Updated 08/08/24 @ 14:11 by Lakeshia Cruz MD) Bilateral foot pain Bilateral swelling of feet Bilateral hand pain Swelling of hand Surgical History No pertinent past surgical history Family History Father Hx of CABG, Onset Age: 55 Maternal Grandfather Mental health disorder Maternal Grandmother Mental health disorder Mother Breast CA, Onset Age: 60 Other Hx of autoimmune disorder Social History Household Members Other:: , works at [employer] Housing: Apartment Patient Tobacco Use Status: Never used Tobacco e-Cigarette/Vaping Use: Never Used service: No Current occupational status: employed Current occupation: [employer] Cognitive needs: No Hearing needs: No Vision needs: Yes Review of Systems Musc Reports back pain, Reports arthralgias and Reports stiffness Physical Exam Vital Signs: Last Vital Signs Pulse 68 08/08/24 13:38 BP 115/72 08/08/24 13:38 Pulse Ox 97 08/08/24 13:38 Oxygen Delivery Method Room Air 08/08/24 13:38 BMI result Body Mass Index 33.3 Const General: cooperative, healthy appearing and comfortable Nutritional Appearance: obese Orientation/consciousness: patient oriented x3 Limitations: no limitations HEENT Head: Yes normocephalic and Yes atraumatic Mouth: moist mucous membranes Resp Effort & Inspection: normal respiratory effort and able to speak in complete sentences Auscultation: clear to auscultation bilaterally Cardio Rate: regular rate Rhythm: regular rhythm Skin General skin exam: no rashes or lesions noted Neuro General: patient oriented x3 Extrem Other: Osteoarthritic changes of both hands with prominent Heberden's nodes Bilateral wrist tenderness without swelling Wrist pain with flexion-extension Bilateral 2nd through 5th MCP tenderness without swelling Negative MCP squeeze test bilaterally PIP joints are not tender Significant Heberden's nodes bilaterally that are tender to palpation No elbow pain with flexion-extension Normal range of motion of shoulders Normal nailfold capillaroscopy Equivocal straight leg raise test and YOLY test bilaterally No tender MTPs bilaterally Assessment & Plan Assessment & Plan (1) Bilateral hand pain: Code(s): M79.641 - Pain in right hand; M79.642 - Pain in left hand Category: Medical Plan: This is a 44-year-old female recently diagnosed with seronegative RA by Angela Howell and prescribed methotrexate. Patient has been out of methotrexate. She can not tell whether she had any improvement. Patient's x-ray findings are rather consistent with osteoarthritis however she has tender wrists, MCPs, DIPs, there are no swollen joints on exam, her abdominal CT showed L-spine findings suggestive of DISH versus ankylosing spondylitis. Patient had improvement with prednisone but prednisone can help different forms of arthritis including degenerative arthritis At this time I will order right hand MRI to evaluate for inflammatory arthritis (2) Low back pain, unspecified: Code(s): M54.50 - Low back pain, unspecified Category: Medical Qualifiers: Chronicity: chronic Back pain laterality: midline Sciatica presence: without sciatica Qualified Code(s): M54.50 - Low back pain, unspecified; G89.29 - Other chronic pain Plan: Check SI joint MRI to evaluate for sacroiliitis Check HLA B27 Plan I spent 30_ minutes reviewing patient's chart, evaluating patient, ordering diagnostic workup, counseling patient and documenting in the chart Orders: Orders Complete Blood Count Auto Diff Today M06.00 - Rheumatoid arthritis without rheumatoid factor, unspecified site Comprehensive Met. Panel Today M06.00 - Rheumatoid arthritis without rheumatoid factor, unspecified site C Reactive Protein Today M06.00 - Rheumatoid arthritis without rheumatoid factor, unspecified site HLA B27 Today M45.9 - Ankylosing spondylitis of unspecified sites in spine MR hand RT wo/w con Today M25.541 - Pain in joints of right hand MR sacroiliac joint JORGE wo con Today G89.29 - Other chronic pain, M54.50 - Low back pain, unspecified Erythrocyte Sedimentation Rate Today M06.00 - Rheumatoid arthritis without rheumatoid factor, unspecified site Coding Level of Care Code Est Pt Level 4 (41560) Diagnoses Bilateral hand pain M79.641; M79.642 Chronic midline low back pain without sciatica M54.50; G89.29 Chronicity: chronic Back pain laterality: midline Sciatica presence: without sciatica
[2024-08-08 13:38] VITALS: BP 115/72; PULSE 68; O2SAT 97; BMI 33.3
== END 2024-08-08 14:09 | disposition home or self-care (01) ==
PROVIDERS: PCP Internal Medicine; Referring Provider Internal Medicine; Visit Provider Student in an Organized Health Care Education/Training Program
DX: M79.641 Pain in right hand (principal); M79.642 Pain in left hand; M54.50 Low back pain, unspecified; G89.29 Other chronic pain
CPT/HCPCS: 99214

== ENCOUNTER → 2024-08-08 13:32 | Outpatient (BNVA) | payer OTHER, SELFPAY | PROVIDERS: PCP Internal Medicine; Visit Provider Student in an Organized Health Care Education/Training Program | DX: M06.00 Rheumatoid arthritis without rheumatoid factor, unspecified site (principal); M79.641 Pain in right hand; M79.642 Pain in left hand; M54.50 Low back pain, unspecified; M25.541 Pain in joints of right hand; M45.9 Ankylosing spondylitis of unspecified sites in spine; G89.29 Other chronic pain | CPT/HCPCS: 99212 ==

== ENCOUNTER → 2024-08-31 13:45 | Outpatient (BNV) | payer OTHER, SELFPAY | PROVIDERS: PCP Internal Medicine; Visit Provider Radiology Diagnostic Radiology | DX: M54.18 Radiculopathy, sacral and sacrococcygeal region (principal) | CPT/HCPCS: 72195 ==

== ENCOUNTER 2024-08-31 13:55 | Outpatient (REF) | payer OTHER, SELFPAY ==
--- NOTE | ~2024-08-31 | MR_ITS ---
EXAMINATION: MRI of the right hand without and with contrast. CLINICAL INFORMATION: X-rays and physical exam consistent with osteoarthritis. Evaluate for inflammatory arthritis. COMPARISON: X-rays of the right hand January 2024 TECHNIQUE: MRI of the right hand is performed without and with contrast. Contrast dose 8.5 mL of gadolinium was given intravenously. FINDINGS: Varying degrees of osteoarthritic changes present within the DIP joints most evident at the 3rd and 5th DIP joint but overall better demonstrated on prior radiographs. Previously noted mild arthrosis of the IP joint of the thumb not well defined. There is mild osteoarthritic changes of the 1st carpometacarpal joint manifested by subchondral cystic change and mild cartilage heterogeneity. Trace joint effusion and synovitis. No joint effusion and synovitis noted in the interphalangeal joints. No prominent synovitis Remaining bones joints and soft tissues unremarkable. MR/MR hand RT wo/w con IMPRESSION: 1. Osteoarthritis of the DIP joints , IP joint of the thumb, and 1st carpometacarpal joint. 2. No evidence for inflammatory arthropathy. Electronically signed by: Ben Lynn MD 09/10/2024 10:48 AM EDT
--- NOTE | ~2024-08-31 | MR_ITS ---
EXAMINATION: MR PELVIS WITHOUT CONTRAST CLINICAL INFORMATION: Sacral pain. Numbness and weakness both lower extremities. COMPARISON: None available. TECHNIQUE: Coronal T1 sequence. Axial T1 sequence. Sagittal T2 sequence. Axial T2 fat sat sequence. Coronal STIR oblique sacrum sequence. FINDINGS: Submitted for interpretation on October 18, 2024. Bone marrow inhomogeneity. No bone marrow STIR signal abnormality. No signal abnormality within the included lumbosacral plexus. No gross malalignment at the sacrococcyx. The bone marrow signal is predominantly fatty in the coccyx. Urinary bladder is fluid-filled. The uterus is in anteversion flexion position and measures 3 x 4 x 5 cm. The junctional zone measures 2 mm. Probable nabothian cysts in the cervix. Dominant follicles in both adnexa. No free fluid in the pelvic peritoneal cavity. No intestinal dilatation. Abundant stool within the large intestine. Trace of fluid in both coxofemoral joints. Nonspecific prominent inguinal lymph nodes. MR/MR pelvis wo con IMPRESSION: No acute fracture, sacrococcyx. Electronically signed by: Ghulam Helms MD 10/18/2024 10:15 AM [facility]
[2024-08-31] MEDS: gadobutroL 10 ML VIAL IVPUSH (15:50)
== END 2024-08-31 13:56 | disposition home or self-care (01) ==
LOC: HO.MRI 13:55
PROVIDERS: PCP Internal Medicine; Visit Provider Student in an Organized Health Care Education/Training Program
DX: M25.541 Pain in joints of right hand (principal); M54.50 Low back pain, unspecified; G89.29 Other chronic pain
CPT/HCPCS: 72195; 73220; A9585

== ENCOUNTER 2024-10-15 13:41 | Outpatient (REF) | payer OTHER, SELFPAY ==
[2024-10-15 14:10] LABS: MANUAL DIFF FLAG NO
[2024-10-15 15:49] LABS: Basophils Percent Auto 0.3 % (0-2); Eosinophils Absolute Auto 0.2 X10*3/uL (0.0-0.4); Eosinophils Percent Auto 1.8 % (0-4); Hematocrit 43.5 % (37.0-47.0); Hemoglobin 14.3 g/dl (12.0-16.0); Imm Gran Abs Auto 0.03 X10*3/uL (0.00-0.03); Imm Gran Pct Auto 0.3 % (0.0-0.4); Lymphocytes Absolute Auto 3.1 X10*3/uL (1.2-4.9); Lymphocytes Percent Auto 32.7 % (20-40); Mean Corpuscular HGB Conc 32.9 g/dl (31.0-35.0); Mean Corpuscular Hemoglobin 28.3 pg (27.0-33.0); Mean Platelet Volume 10.4 fL (9.4-12.3); Monocytes Absolute Auto 0.5 X10*3/uL (0.1-1.2); Monocytes Percent Auto 5.6 % (2-11); Neutrophils Absolute Auto 5.6 x10*3/uL (2.0-8.3); Neutrophils Percent Auto 59.3 % (45-73); Platelet Count 334 X10*3/uL (160-400); Red Blood Count 5.06 X10*6/uL (4.20-5.50); Red Cell Distribution Width 12.8 % (11.0-16.0); White Blood Count 9.5 X10*3/uL (4.8-10.8)
[2024-10-15 17:23] LABS: Erythrocyte Sedimentation Rate 19 MM/HR (0-20)
[2024-10-15 18:17] LABS: Alanine Aminotransferase 19 U/L (0-31); Albumin Level 4.1 g/dL (3.5-5.0); Alkaline Phosphatase 71 U/L (39-117); Anion Gap 14 (12-20); Aspartate Amino Transferase 22 U/L (5-31); Bilirubin Total 0.4 mg/dL (0.0-1.0); Blood Urea Nitrogen 13 mg/dL (9-16); C Reactive Protein 0.17 mg/dL (< or = 0.50); Calcium 9.6 mg/dL (8.4-10.2); Carbon Dioxide 25 mmol/L (22-29); Chloride 105 mmol/L (96-108); Estimated Glomerular Filt Rate > 60; Glucose Random 93 mg/dL (60-115); Potassium 4.2 mmol/L (3.3-5.1); Sodium 140 mmol/L (135-145)
[2024-10-15 20:02] LABS: Estimated Average Glucose 123 mg/dL; Hemoglobin A1C 148.0121 umol/L; Hemoglobin A1c % 5.9 % (<6.0); Total Hemoglobin (HGBA1C) 3567.0679 umol/L
[2024-10-20 00:39] LABS: HLA B27 Negative (Negative)
== END 2024-10-15 13:42 | disposition home or self-care (01) ==
LOC: HO.LAB 13:41
PROVIDERS: PCP Internal Medicine; Visit Provider Student in an Organized Health Care Education/Training Program
DX: M06.00 Rheumatoid arthritis without rheumatoid factor, unspecified site (principal); M45.9 Ankylosing spondylitis of unspecified sites in spine; I10 Essential (primary) hypertension; E11.65 Type 2 diabetes mellitus with hyperglycemia; Z79.4 Long term (current) use of insulin
CPT/HCPCS: 36415; 80053; 83036; 85025; 85652; 86140; 86812

== ENCOUNTER 2024-10-17 14:41 | Outpatient (AMB) | payer OTHER, SELFPAY ==
--- NOTE | 2024-10-17 14:57 | A.OFFVIS_ITS ---
Vital Signs 10/17/24 15:03 Height 5 ft 2 in Weight 178 lb 12.718 oz BMI 32.7 BP 132/80 Blood Pressure Location Rt brachial Position Sitting Respiration 16 Pulse 93 Pulse Source Pulse Oximeter Pulse Oximetry (%) 97 Oxygen Delivery Method Room Air Intake Visit Reasons: RA/OA/ Intake Note: Patient presents for RA/OA/. Physical Medicine Physician Required: Yes Physical Medicine Physician Language: Workers Compensation Paralegal Services: Physical Medicine Physician Present Physical Medicine Physician Name: Claude [id number] Information Interpreted: non-clinical & clinical Allergies No Known Allergies Allergy (Verified 10/17/24 15:02) Medication List - Last Reconciled 10/17/24 by Lakeshia Cruz MD albuterol sulfate 90 mcg/actuation 1 puff inhalation QID PRN famotidine (Pepcid) 20 mg PO DAILY lancets (OneTouch Delica Plus Lancet) test blood sugar twice a day lidocaine 5% 1 patch topical DAILY metformin ER 1,500 mg (2 x 750 mg) PO DAILY olmesartan 5 mg PO DAILY OneTouch Ultra Test (blood sugar diagnostic) tid NS Ozempic (semaglutide) 0.5 mg (0.736 mL) subcut QWEEK NS pen needle, diabetic Use to inject insulin once a day HPI Comments Details: Patient returns for follow-up after completion of her diagnostic workup. She continues to feel about the same. Initial history: This is a 44-year-old female recently diagnosed with seronegative RA by Angela Howell who returns for follow-up. She was prescribed methotrexate 10 mg weekly. She stated that she had GI upset, nausea and fatigue with it. She can not tell whether she had improvement or not. She has run out now for the past 1 or 2 months. She continues to have pain in her hands, low back, knees, feet. Morning stiffness lasts 15-30 minutes. She takes Tylenol Arthritis. Denies history suggestive of uveitis [facility] Medical History Bilateral foot pain Bilateral swelling of feet Bilateral hand pain Swelling of hand Surgical History No pertinent past surgical history Family History Father Hx of CABG, Onset Age: 55 Maternal Grandfather Mental health disorder Maternal Grandmother Mental health disorder Mother Breast CA, Onset Age: 60 Other Hx of autoimmune disorder Social History Household Members Other:: , works at [employer] Housing: Apartment Patient Tobacco Use Status: Never used Tobacco e-Cigarette/Vaping Use: Never Used service: No Current occupational status: employed Current occupation: [employer] Cognitive needs: No Hearing needs: No Vision needs: Yes Review of Systems Musc Reports back pain, Reports arthralgias and Reports stiffness Physical Exam Vital Signs: Last Vital Signs Pulse 93 10/17/24 15:03 Resp 16 10/17/24 15:03 BP 132/80 10/17/24 15:03 Pulse Ox 97 10/17/24 15:03 Oxygen Delivery Method Room Air 10/17/24 15:03 BMI result Body Mass Index 32.7 Const General: cooperative, healthy appearing and comfortable Nutritional Appearance: obese Orientation/consciousness: patient oriented x3 Limitations: no limitations HEENT Head: Yes normocephalic and Yes atraumatic Resp Effort & Inspection: normal respiratory effort and able to speak in complete sentences Cardio Rate: regular rate Rhythm: regular rhythm Skin General skin exam: no rashes or lesions noted Neuro General: patient oriented x3 Extrem Other: Osteoarthritic changes of both hands with prominent Heberden's nodes Bilateral wrist tenderness without swelling Wrist pain with flexion-extension Bilateral 2nd through 5th MCP tenderness without swelling Negative MCP squeeze test bilaterally PIP joints are not tender Significant Heberden's nodes bilaterally that are tender to palpation . Assessment & Plan Assessment & Plan (1) Bilateral hand pain: Code(s): M79.641 - Pain in right hand; M79.642 - Pain in left hand Category: Medical Plan: This is a 44-year-old female who was diagnosed with rheumatoid arthritis by Angela Howell early this year and started on methotrexate. Methotrexate was not helpful. Clinically her picture with rather consistent with osteoarthritis. I ordered a right hand MRI which was negative for inflammatory arthritis. Discussed with patient that she has hand osteoarthritis Discussed management of osteoarthritis. Referred patient to OT. Can use Tylenol Arthritis, use oral NSAIDs sparingly, can use Voltaren gel Follow-up as needed (2) Low back pain, unspecified: Code(s): M54.50 - Low back pain, unspecified Category: Medical Qualifiers: Chronicity: chronic Back pain laterality: midline Sciatica presence: without sciatica Qualified Code(s): M54.50 - Low back pain, unspecified; G89.29 - Other chronic pain Plan: Unfortunately her SI joint MRI was not read yet by radiologist. It was done 08/31. We will reach out to the radiology department. HLA B27 pending We will call patient with the results Plan I spent 20 minutes reviewing patient's chart, evaluating patient, counseling patient and documenting in the chart Orders: Orders OT Evaluation and Treatment Today M19.041 - Primary osteoarthritis, right hand, M19.042 - Primary osteoarthritis, left hand Medications: Discontinued methotrexate sodium Discontinued Reason: Doctor's Order 10 mg (4 x 2.5 mg) PO QWEEK 16 tabs 1RF M06.00 - Rheumatoid arthritis without rheumatoid factor, unspecified site Coding Level of Care Code Est Pt Level 3 (37902) Diagnoses Bilateral hand pain M79.641; M79.642 Chronic midline low back pain without sciatica M54.50; G89.29 Chronicity: chronic Back pain laterality: midline Sciatica presence: without sciatica
[2024-10-17 15:03] VITALS: BP 132/80; PULSE 93; RESP 16; O2SAT 97; BMI 32.7
== END 2024-10-17 15:56 | disposition home or self-care (01) ==
PROVIDERS: PCP Internal Medicine; Visit Provider Student in an Organized Health Care Education/Training Program
DX: M79.641 Pain in right hand (principal); M79.642 Pain in left hand; M54.50 Low back pain, unspecified; G89.29 Other chronic pain
CPT/HCPCS: 99213

== ENCOUNTER → 2024-10-17 14:41 | Outpatient (BNVA) | payer OTHER, SELFPAY | PROVIDERS: PCP Internal Medicine; Visit Provider Student in an Organized Health Care Education/Training Program | DX: M06.00 Rheumatoid arthritis without rheumatoid factor, unspecified site (principal); M54.50 Low back pain, unspecified; M79.642 Pain in left hand; M79.641 Pain in right hand; G89.29 Other chronic pain | CPT/HCPCS: 99212 ==

== ENCOUNTER 2025-01-09 14:52 | Outpatient (AMB) | payer OTHER, SELFPAY ==
--- NOTE | 2025-01-09 14:58 | A.OFFVIS_ITS ---
Vital Signs 01/09/25 15:07 Height 5 ft 2 in Weight 178 lb BMI 32.6 Intake Visit Reasons: OV - Bilateral Knee OA Intake Note: Kd is a 44 year old female who presents today for a follow up of her bilateral knee OA. RA+. At her last visit we discussed surgical interventions, but due to her age and work status she wished to hold off. No injection Hx. Currently states her knee pain has worsen and would like to discuss surgical options again. Allergies No Known Allergies Allergy (Verified 01/09/25 15:08) HPI HPI OV - Bilateral Knee OA: Details: This is a 44-year-old with a complaint of right knee pain. She has right knee osteoarthritis involving the medial and anterior compartments. It is moderate bordering on severe. She works 8 hours a day in [email or web address] and finds this worked very difficult. She states she can only walk for about 20 minutes but with pain. She describes difficulty with daily activities. She is active and would like to be more active but can not because of her knee. Most of her pain is medial. she is hesitant about steroid injections because she is diabetic and is working hard to get her hemoglobin A1c under control. She is on Ozempic and has been losing weight. [facility] Medical History Bilateral foot pain Bilateral swelling of feet Bilateral hand pain Swelling of hand Surgical History No pertinent past surgical history Family History Father Hx of CABG, Onset Age: 55 Maternal Grandfather Mental health disorder Maternal Grandmother Mental health disorder Mother Breast CA, Onset Age: 60 Other Hx of autoimmune disorder Social History Household Members Other:: , works at [employer] Housing: Apartment Patient Tobacco Use Status: Never used Tobacco e-Cigarette/Vaping Use: Never Used service: No Current occupational status: employed Current occupation: [employer] Cognitive needs: No Hearing needs: No Vision needs: Yes Physical Exam Vital Signs: BMI result Body Mass Index 32.6 Extrem Other: Gonadarthrosis of the medial aspect of the right knee with prominent medial femoral condyle and tender joint line. Assessment & Plan Assessment & Plan (1) Bilateral primary osteoarthritis of knee: Comment: X-ray showed advanced osteoarthritis of both knees Code(s): M17.0 - Bilateral primary osteoarthritis of knee Category: Medical Plan: 44-year-old with right knee osteoarthritis. I recommend viscosupplementation. She is trying to control her hemoglobin A1c and steroid injections will not help. She does have moderate to severe osteoarthritis and this is a problem for her. She is only 44 unfortunately so we should try to avoid surgery if possible. (2) DM type 2 (diabetes mellitus, type 2): Code(s): E11.9 - Type 2 diabetes mellitus without complications Category: Medical Qualifiers: Diabetes mellitus moth exterminator insulin use: with moth exterminator use Diabetes mellitus complication status: with hyperglycemia Qualified Code(s): E11.65 - Type 2 diabetes mellitus with hyperglycemia; Z79.4 - medical terminologist (current) use of insulin Plan: Coding Level of Care Code Est Pt Level 3 (96818) Complex EM visit Add On G2211 Diagnoses Bilateral primary osteoarthritis of knee M17.0 Type 2 diabetes mellitus with hyperglycemia, with long-term current use of insulin E11.65; Z79.4 Diabetes mellitus jail insulin use: with jail use Diabetes mellitus complication status: with hyperglycemia
[2025-01-09 15:07] VITALS: BMI 32.6
--- OUTSIDE RECORDS SUMMARY | 2025-01-09 18:08 | XMS_ITS | Clinical Summary ---
Author Organization [employer] [facility] ity Address [address] [place] [address] Care Team Providers Care Sailing Master Name Role Phone Unavailable Primary Care Provider Unavailabl e Social History Tobacco Use Types Packs/Day Years Used Date Smoking Tobacco: Never Assessed Comments Unknown Sex and Gender Information Value Date Recorded Sex Assigned at Not on file Legal Sex Female 10:34 AM EST Gender Identity Not on file Sexual Orientation Not on file Plan of Treatment Health Maintenance Due Date Last Done Comments Breast Cancer Screening 1978 DTaP,Tdap,and Td Vaccines (1 - Tdap) 1997 Hepatitis B Vaccines (1 of 3 - 19+ 3-dose series) 1997 Cervical Cancer Screening: P ap Smear 1999 COVID-19 Vaccine (2023-2 5 season) 2024 Influenza Vaccine (#1) 2024 HIB Vaccines Aged Out No longer eligi ble based on patient's age to complete this topic HPV Vaccines Aged Out No longer eligi ble based on patient's age to complete this topic Hepatitis A Vaccines Aged Out No long er eligible based on patient's age to complete this topic IPV Vaccines Aged Out No longer eligi ble based on patient's age to complete this topic MMR Vaccines Aged Out No longer eligi ble based on patient's age to complete this topic Meningococcal ACWY Vaccine Aged Out N o longer eligible based on patient's age to complete this topic Meningococcal B Vacine Aged Out No lo nger eligible based on patient's age to complete this topic Pneumococcal Vaccine: Pediat rics (0 to 5 Years) and At-Risk Patients (6 to 64 Years) Aged Out No longer eligible b ased on patient's age to complete this topic RSV Immunization Patients Un alvaro 20 months Aged Out No longer eligible b ased on patient's age to complete this topic Varicella Vaccines Aged Out No longer eligible based on patient's age to complete this topic
== END 2025-01-09 15:37 | disposition home or self-care (01) ==
PROVIDERS: PCP Internal Medicine; Visit Provider Orthopaedic Surgery
DX: M17.0 Bilateral primary osteoarthritis of knee (principal); E11.65 Type 2 diabetes mellitus with hyperglycemia; Z79.4 Long term (current) use of insulin
CPT/HCPCS: 99213

== ENCOUNTER → 2025-01-09 14:52 | Outpatient (BNVA) | payer OTHER, SELFPAY | PROVIDERS: PCP Internal Medicine; Visit Provider Orthopaedic Surgery | DX: M17.0 Bilateral primary osteoarthritis of knee (principal); E11.65 Type 2 diabetes mellitus with hyperglycemia; Z79.4 Long term (current) use of insulin | CPT/HCPCS: 99212 ==

== ENCOUNTER 2025-01-10 10:11 | Outpatient (AMB) | payer OTHER, SELFPAY ==
[2025-01-10 10:19] VITALS: BP 128/76; PULSE 70; RESP 18; O2SAT 98; BMI 30.4
--- NOTE | 2025-01-10 10:19 | A.OFFPC_ITS ---
Vital Signs 01/10/25 10:19 Height 5 ft 2 in Weight 166 lb BMI 30.4 BP 128/76 Blood Pressure Location Rt brachial Position Sitting Respiration 18 Pulse 70 Pulse Source Pulse Oximeter Pulse Oximetry (%) 98 Oxygen Delivery Method Room Air Intake Visit Reasons: PE ( needs environmental property assessor) Intake Note: Pt is here today for PE. Allergies No Known Allergies Allergy (Verified 01/10/25 10:19) Medication List - Last Reconciled 01/10/25 by Krysten Gage MD albuterol sulfate 90 mcg/actuation 1 puff inhalation QID PRN famotidine (Pepcid) 20 mg PO DAILY lancets (OneTouch Delica Plus Lancet) test blood sugar twice a day lidocaine 5% 1 patch topical DAILY metformin ER 1,500 mg (2 x 750 mg) PO DAILY olmesartan 5 mg PO DAILY OneTouch Ultra Test (blood sugar diagnostic) tid NS Ozempic (semaglutide) 0.5 mg (0.736 mL) subcut QWEEK NS pen needle, diabetic Use to inject insulin once a day Tobacco use date assessed: 01/10/25 Dental Screening Dental Screen Date: 01/10/25 Did you have a dental visit in the last 12 months?: Yes Did you have a dental problem in the last 6 months where you did not have access to dental care?: No Was dental information given to patient?: Patient has dentist HPI PE ( needs environmental property assessor) HPI Details Pt presents for PE. Pt c/o chronic insomnia and diffuse body and joints aches for six-months. She was seen by Rheumatology with negative workup for inflammatory arthritis. Patient reports being under lot of stress and feeling sad and depressed but denies suicidal or homicidal ideation. Type 2 diabetes has been well controlled on metformin and Ozempic and patient lost 20 lb since last visit. [facility] Medical History Bilateral foot pain Bilateral swelling of feet Bilateral hand pain Swelling of hand Surgical History No pertinent past surgical history Family History Father Hx of CABG, Onset Age: 55 Maternal Grandfather Mental health disorder Maternal Grandmother Mental health disorder Mother Breast CA, Onset Age: 60 Other Hx of autoimmune disorder Social History Household Members Other:: , works at [employer] Housing: Apartment Patient Tobacco Use Status: Never used Tobacco e-Cigarette/Vaping Use: Never Used service: No Current occupational status: employed Current occupation: [employer] Cognitive needs: No Hearing needs: No Vision needs: Yes Questionnaire PHQ-9 Over the last 2 weeks, how often have you been bothered by any of the following problems? 1. Little interest or pleasure in doing things: several days 2. Feeling down, depressed, or hopeless: several days 3. Trouble falling or staying asleep, or sleeping too much: more than half the days 4. Feeling tired or having little energy: more than half the days 5. Poor appetite or overeating: more than half the days 6. Feeling bad about yourself - or that you are a failure or have let yourself or your family down: several days 7. Trouble concentrating on things, such as reading the newspaper or watching television: several days 8. Moving or speaking so slowly that other people could have noticed. Or the opposite - being so fidgety or restless that you have been moving around a lot more than usual: several days 9. Thoughts that you would be better off or of hurting yourself in some way: not at all Total score: 11 Depression Screening Interpretation: Positive (Patient will be referred to a counseling and duloxetine 20 mg daily will be started) Depression Screening Follow-up: Existing condition and New Medication prescribed Depression Screening Done: Yes 53563 - PHQ-9 Billing: Yes Source: Developed by Drs. Neri Persaud, Sindhu Austin, Darrell Serrano and colleagues, with an educational carmen from [employer]. Thrive Questionnaire Date Thrive assessed: 01/10/25 I am a: Patient What is your living situation today?: I have a place to live, but I am worried about losing it in the future Within the past 12 months, did the food you bought not last and you didn't have the money to get more?: Sometimes True Within the past 12 months, did you worry whether your food would run out before you got money to buy more?: Sometimes True Do you have trouble paying for medicines?: Yes Do you have trouble getting transportation to medical appointments?: No Do you have trouble paying your heating and electricity bill?: No Do you have trouble taking care of your child, family member or friend?: No Do you have trouble with day-to-day activities such as bathing, preparing meals, shopping, managing finances, etc.?: No Are you currently unemployed and looking for a job?: No Are you interested in more education?: No Please select the resources that you would like help with: Food and Paying for medicine Currently or been in a relationship where the following occur: No concerns reported THRIVE Score: 3 AUDIT C Alcohol Use Questionnaire (AUDIT-C) 1. How often do you have a drink containing alcohol?: Never 3. How often do you have six or more drinks on one occasion?: Never Total Score: 0 CLAY-7 AMB Questionnaire CLAY-7 Date CLAY - 7 assessed: 01/10/25 Feeling nervous, anxious, or on edge: 1 = Several days Not being able to stop or control worryin = Several days Worrying too much about different things: 1 = Several days Trouble relaxin = More than half the days Being so restless that it is hard to sit still: 1 = Several days Becoming easily annoyed or irritable: 2 = More than half the days Feeling afraid as if something awful might happen: 2 = More than half the days Total CLAY-7 score (0-4 normal; 5-9 mild; 10-14 moderate; 15-21 severe): 10 Source: Developed by Drs. Neri Persaud, Sindhu Austin, Darrell Serrano and colleagues, with an educational carmen from [employer]. CLAY-7 Assessment Billing CLAY-7 Assessment Tool: CLAY-7 Assessment 45807 Review of Systems Const All systems reviewed & are unremarkable except as noted in HPI and below Reports no additional complaints Eyes Reports no additional complaints ENT Reports no additional complaints Card Reports no additional complaints Resp Reports no additional complaints GI Reports no additional complaints Reports no additional complaints Physical exam (Primary Care) Vital Signs: Last Vital Signs Pulse 70 01/10/25 10:19 Resp 18 01/10/25 10:19 BP 128/76 01/10/25 10:19 Pulse Ox 98 01/10/25 10:19 Oxygen Delivery Method Room Air 01/10/25 10:19 BMI result Body Mass Index 30.4 Tobacco/Smoking Status: Tobacco use Status Tobacco use date assessed 01/10/25 01/10/25 10:21 Patient Tobacco Use Status Never used Tobacco 01/10/25 10:21 e-Cigarette/Vaping Use Never Used 01/10/25 10:21 PHQ-9: PHQ-9 Score PHQ-9: Total score 11 01/10/25 11:01 Depression Screening Interpretation: Positive (Patient will be referred to a counseling and duloxetine 20 mg daily will be started) Depression Screening Follow-up: Existing condition and New Medication prescribed Thrive Assessment: Date of Thrive Assessment Date Thrive assessed 01/10/25 01/10/25 10:21 Currently or been in a relationship where the following occur: No concerns reported Const General: no acute distress HENMT Head: Yes normal to inspection Ears: hearing grossly normal bilaterally Face and sinus: Yes normal facial exam Mouth: Normal oral and palatal mucosa present Eyes General: appearance normal, both eyes and all related structures Neck Neck: Yes no lymphadenopathy and Yes supple Resp Effort & Inspection: normal respiratory effort Auscultation: clear to auscultation bilaterally Cardio Rhythm: regular rhythm Heart sounds: S1 normal heart sound present and S2 normal heart sound present GI Inspection: Yes normal to inspection Palpation (GI): Soft to palpation Percussion: Yes normal to percussion Auscultation: normal bowel sounds Coding Level of Care Code Est Pt Prev Care 40-64y(81550) Diagnoses Annual physical exam Z00.00 Hypertension I10 Type 2 diabetes mellitus with hyperglycemia, with long-term current use of insulin E11.65; Z79.4 Diabetes mellitus terminal worker insulin use: with terminal worker use Diabetes mellitus complication status: with hyperglycemia Enlarged thyroid E04.9 Anxiety and depression F41.9; F32.A Additional Codes LCAY-7 Assessment Billing - CLAY-7 Assessment Tool: LCAY-7 Assessment 97026 ([id number]) PHQ-9 - 84636 - PHQ-9 Billing: Yes ([id number]) Assessment & Plan Assessment & Plan (1) Annual physical exam: Code(s): Z00.00 - Encounter for general adult medical examination without abnormal findings Category: Medical Plan: Well-balanced diet regular physical activity discussed with the patient. She requested referral to automobile wrecker for a Pap smear and pelvic exam. Patient will schedule mammogram. She declined colonoscopy Cologuard is ordered (2) Hypertension: Code(s): I10 - Essential (primary) hypertension Category: Medical Plan: Continue olmesartan (3) DM type 2 (diabetes mellitus, type 2): Code(s): E11.9 - Type 2 diabetes mellitus without complications Category: Medical Qualifiers: Diabetes mellitus terminal worker insulin use: with [facility] use Diabetes mellitus complication status: with hyperglycemia Qualified Code(s): E11.65 - Type 2 diabetes mellitus with hyperglycemia; Z79.4 - rn long term care (current) use of insulin Plan: A1c was 5.9% 2 months ago. Patient will return for fasting blood work. ADA diet regular physical activity weight loss discussed with the patient. she will continue the same medications and will follow-up in 3 months (4) Enlarged thyroid: Code(s): E04.9 - Nontoxic goiter, unspecified Category: Medical Plan: Obtain thyroid ultrasound check TSH (5) Anxiety and depression: Comment: Patient is being referred to a counselor 01/10/2025 Code(s): F41.9 - Anxiety disorder, unspecified; F32.A - Depression, unspecified Category: Medical Plan: Duloxetine 20 mg daily will be started side effects discussed with the patient. She will return in 1 month for follow-up Orders: Orders Complete Blood Count Auto Diff Today E11.65 - Type 2 diabetes mellitus with hyperglycemia, I10 - Essential (primary) hypertension, Z00.00 - Encounter for general adult medical examination without abnormal findings, Z79.4 - rn long term care (current) use of insulin Lipid Panel Today E11.65 - Type 2 diabetes mellitus with hyperglycemia, I10 - Essential (primary) hypertension, Z00.00 - Encounter for general adult medical examination without abnormal findings, Z79.4 - rn long term care (current) use of insulin Comprehensive [place]. Panel Fast Today E11.65 - Type 2 diabetes mellitus with hyperglycemia, I10 - Essential (primary) hypertension, Z00.00 - Encounter for general adult medical examination without abnormal findings, Z79.4 - group home (current) use of insulin Hemoglobin A1c Today E11.65 - Type 2 diabetes mellitus with hyperglycemia, I10 - Essential (primary) hypertension, Z00.00 - Encounter for general adult medical examination without abnormal findings, Z79.4 - group home (current) use of insulin Microalbumin, Random (w Creat) Today E11.65 - Type 2 diabetes mellitus with hyperglycemia, I10 - Essential (primary) hypertension, Z00.00 - Encounter for general adult medical examination without abnormal findings, Z79.4 - group home (current) use of insulin TSH reflex Free T4 Today E11.65 - Type 2 diabetes mellitus with hyperglycemia, I10 - Essential (primary) hypertension, Z00.00 - Encounter for general adult medical examination without abnormal findings, Z79.4 - rn long term care (current) use of insulin thyroid Today E04.9 - Nontoxic goiter, unspecified Referrals MARITIME GUARD Referral Z00.00 - Encounter for general adult medical examination without abnormal findings Cologuard Test Z12.11 - Encounter for screening for malignant neoplasm of colon, Z12.12 - Encounter for screening for malignant neoplasm of rectum Medications: New duloxetine (Cymbalta) 20 mg PO BID 90 caps 0RF
--- OUTSIDE RECORDS SUMMARY | 2025-01-10 11:20 | XMS_ITS | Clinical Summary ---
Author Organization [employer] [facility] ity Address [address] [place] [address] Care Team Providers Care Public Health Physician Name Role Phone Unavailable Primary Care Provider [...]
== END 2025-01-10 11:38 | disposition home or self-care (01) ==
PROVIDERS: PCP Internal Medicine; Visit Provider Internal Medicine
DX: Z00.00 Encounter for general adult medical examination without abnormal findings (principal); I10 Essential (primary) hypertension; E11.65 Type 2 diabetes mellitus with hyperglycemia; Z79.4 Long term (current) use of insulin; E04.9 Nontoxic goiter, unspecified; F41.9 Anxiety disorder, unspecified; F32.A Depression, unspecified

== ENCOUNTER → 2025-01-10 10:11 | Outpatient (BNVA) | payer OTHER, SELFPAY | PROVIDERS: PCP Internal Medicine; Visit Provider Internal Medicine | DX: Z00.00 Encounter for general adult medical examination without abnormal findings (principal); I10 Essential (primary) hypertension; E11.65 Type 2 diabetes mellitus with hyperglycemia; E04.9 Nontoxic goiter, unspecified; F41.9 Anxiety disorder, unspecified; F32.A Depression, unspecified; Z79.4 Long term (current) use of insulin | CPT/HCPCS: 96127; 99396 ==

== ENCOUNTER 2025-02-07 07:11 | Outpatient (REF) | payer OTHER, SELFPAY ==
--- NOTE | ~2025-02-07 | US_ITS ---
EXAMINATION: US THYROID HISTORY: E04.9 - Nontoxic goiter, unspecified TECHNIQUE: Real-time grayscale ultrasound imaging was performed and images were reviewed. COMPARISON: There are no prior studies for comparison. FINDINGS: SIZE: The right thyroid lobe measures 7.2 x 2.4 x 2.5 cm. The left thyroid lobe measures 7.6 x 1.9 x 2.8 cm. The isthmus measures 9 mm. FLOW: Flow to the gland is normal. ECHOGENICITY: The echotexture of the gland is heterogeneous. NODULES: Multiple nodules are seen bilaterally, the largest of which are enumerated below: Nodule #: 1 Location: Isthmus measuring 1.8 x 1.1 x 2.1 cm. Shape: Wider than tall (0 points) Margins: Ill-defined (0 points) Echotexture: Isoechoic (1 point) Composition: Solid (2 points) Calcifications: None (0 points) Total points: 3 TIRADS: TR3: Mildly suspicious. Nodule #: 2 Location: Right upper pole measuring 2.8 x 1.5 x 2.0 cm. Shape: Wider than tall (0 points) Margins: Ill-defined (0 points) Echotexture: Isoechoic (1 point) Composition: Mostly solid (2 points) Calcifications: None (0 points) Total points: 3 TIRADS: TR3: Mildly suspicious. Nodule #: 3 Location: Midportion of the right thyroid lobe measuring 0.8 x 0.8 x 0.8 cm. Shape: Round (0 points) Margins: Smooth (0 points) Echotexture: Isoechoic (1 point) Composition: Solid (2 points) Calcifications: Rim calcification (2 points) Total points: 5 TIRADS: TR4: Moderately suspicious. Nodule #: 4 Location: Right lower pole measuring 1.9 x 1.3 x 1.7 cm. Shape: Wider than tall (0 points) Margins: Ill-defined (0 points) Echotexture: Isoechoic (1 point) Composition: Mostly solid (2 points) Calcifications: Macrocalcifications (1 point) Total points: 4 TIRADS: TR4: Moderately suspicious. Nodule #: 5 Location: Left lower pole measuring 2.1 x 1.8 x 1.8 cm. Shape: Wider than tall (0 points) Margins: Ill-defined (0 points) Echotexture: Isoechoic (1 point) Composition: Mostly solid (2 points) Calcifications: Macrocalcifications (1 point) Total points: 4 TIRADS: TR4: Moderately suspicious. US/US thyroid IMPRESSION: Multiple bilateral thyroid nodules as described. Per ACR guidelines below, fine-needle aspiration of the bilateral lower pole nodules should be considered. The other nodules could be followed. ACR TI-RADS Guidelines TR1 (0 points): Benign, No follow-up or biopsy required TR2 (2 points): Not Suspicious, No biopsy or follow up indicated TR3 (3 points): Mildly Suspicious, FNA if >= 2.5 cm, Follow if >= 1.5 cm TR4 (4-6 points): Moderately Suspicious, FNA if >= 1.5 cm, Follow if >= 1.0 cm TR5 (>=7 points): Highly Suspicious, FNA if >= 1.0 cm, Follow if >= 0.5 cm Electronically signed by: Neri Schulz MD 02/10/2025 08:23 AM EDT
[2025-02-07 10:18] LABS: MANUAL DIFF FLAG NO
[2025-02-07 10:28] LABS: Basophils Percent Auto 0.5 % (0-2); Eosinophils Absolute Auto 0.1 X10*3/uL (0.0-0.4); Eosinophils Percent Auto 1.4 % (0-4); Hematocrit 42.9 % (37.0-47.0); Hemoglobin 14.2 g/dl (12.0-16.0); Imm Gran Abs Auto 0.03 X10*3/uL (0.00-0.03); Imm Gran Pct Auto 0.3 % (0.0-0.4); Lymphocytes Absolute Auto 2.8 X10*3/uL (1.2-4.9); Lymphocytes Percent Auto 32.2 % (20-40); Mean Corpuscular HGB Conc 33.1 g/dl (31.0-35.0); Mean Corpuscular Hemoglobin 28.3 pg (27.0-33.0); Mean Corpuscular Volume 85.5 fL (80.0-98.0); Mean Platelet Volume 10.6 fL (9.4-12.3); Monocytes Absolute Auto 0.6 X10*3/uL (0.1-1.2); Monocytes Percent Auto 7.2 % (2-11); Neutrophils Percent Auto 58.4 % (45-73); Platelet Count 311 X10*3/uL (160-400); Red Blood Count 5.02 X10*6/uL (4.20-5.50); Red Cell Distribution Width 13.2 % (11.0-16.0); White Blood Count 8.6 X10*3/uL (4.8-10.8)
[2025-02-07 10:39] LABS: Estimated Average Glucose 120 mg/dL; Hemoglobin A1C 149.8361 umol/L; Hemoglobin A1c % 5.8 % (<6.0); Total Hemoglobin (HGBA1C) 3734.4467 umol/L
[2025-02-07 11:04] LABS: Creatinine Urine 90.66 mg/dL; Microalbum/Creatinine Ratio Ur 9.9 ug/mg cr (<30)
[2025-02-07 11:11] LABS: Alanine Aminotransferase 15 U/L (0-31); Albumin Level 3.9 g/dL (3.5-5.0); Alkaline Phosphatase 55 U/L (39-117); Anion Gap 9 (12-20); Aspartate Amino Transferase 21 U/L (5-31); Bilirubin Total 0.6 mg/dL (0.0-1.0); Blood Urea Nitrogen 13 mg/dL (9-16); Calcium 9.2 mg/dL (8.4-10.2); Carbon Dioxide 25 mmol/L (22-29); Chloride 109 mmol/L (96-108); Cholesterol 162 mg/dL (<200); Estimated Glomerular Filt Rate > 60; Glucose Fasting 91 mg/dL (60-99); HDL Cholesterol 46 mg/dL (>40); LDL Cholesterol Calculated 107 mg/dL (<100); Potassium 5.3 mmol/L (3.3-5.1); Sodium 138 mmol/L (135-145); Total Protein 7.6 g/dL (6.5-8.0); Triglycerides 47 mg/dL (<150)
[2025-02-07 11:34] LABS: TSH reflex Free T4 0.69 uIU/mL (0.32-4.0)
== END 2025-02-07 07:12 | disposition home or self-care (01) ==
LOC: HO.US 07:11
PROVIDERS: PCP Internal Medicine; Visit Provider Internal Medicine
DX: Z00.00 Encounter for general adult medical examination without abnormal findings (principal); E04.9 Nontoxic goiter, unspecified; I10 Essential (primary) hypertension; Z79.4 Long term (current) use of insulin; E11.65 Type 2 diabetes mellitus with hyperglycemia
CPT/HCPCS: 36415; 76536; 80053; 80061; 82043; 82570; 83036; 84443; 85025

== ENCOUNTER → 2025-02-07 15:26 | Outpatient (BNV) | payer OTHER, SELFPAY | PROVIDERS: PCP Internal Medicine; Visit Provider Radiology Diagnostic Radiology | DX: E04.2 Nontoxic multinodular goiter (principal) | CPT/HCPCS: 76536 ==

== ENCOUNTER 2025-02-11 13:45 | Outpatient (REF) | payer OTHER, SELFPAY ==
[2025-02-11 17:01] LABS: Appearance Urine Cloudy; Color Urine Yellow; Glucose Urine UA Negative (Negative); Leukocyte Esterase Urine Negative (Negative); Nitrite Urine Negative (Negative); Specific Gravity - Urine >= 1.030 (1.005-1.025); Urine Blood Negative (Negative); Urine Ketones Trace mg/dL (Negative); Urine Protein Negative (Neg-Trace)
[2025-02-11 18:13] LABS: Calcium Oxalate Crystals Urine Present; RBC Urine 0-2 /HPF (0-2); WBC Urine 0-5 /HPF (0-5)
[2025-02-11 18:14] LABS: Bacteria Urine 4+ (None Seen); Hyaline Casts Urine 0-2 /LPF (0-2)
[2025-02-11 18:15] LABS: Other Crystals Urine Present
--- OUTSIDE RECORDS SUMMARY | 2025-02-11 18:49 | XMS_ITS | Clinical Summary ---
Author Organization Danita [facility] ity Address [address] [place] [address] Care Team Providers Care Tobacco Dipper Name Role Phone Unavailable Primary Care Provider [...]
== END 2025-02-11 13:46 | disposition home or self-care (01) ==
LOC: HO.LNP 13:45
PROVIDERS: PCP Internal Medicine; Visit Provider Internal Medicine
DX: N39.0 Urinary tract infection, site not specified (principal)
CPT/HCPCS: 81001; 81003; 87086

== ENCOUNTER 2025-02-11 13:45 | Outpatient (AMB) | payer OTHER, SELFPAY ==
[2025-02-11 13:51] VITALS: BP 122/78; PULSE 78; RESP 18; TEMP 36.8; O2SAT 96; BMI 30.9
--- NOTE | 2025-02-11 13:51 | MHC.PC.OV ---
Vital Signs 02/11/25 13:51 Height 5 ft 2 in Weight 169 lb BMI 30.9 BP 122/78 Blood Pressure Location Rt brachial Position Sitting Respiration 18 Pulse 78 Pulse Source Pulse Oximeter Temp 98.2 F Temp Source Oral Pulse Oximetry (%) 96 Oxygen Delivery Method Room Air Intake Visit Reasons: 1 month f/up Intake Note: Pt is here today for 1 month follow up visit. Disability Benefits Specialist Required: Yes Disability Benefits Specialist Language: Nurse Navigator Name: [id number] Information Interpreted: non-clinical & clinical Education Assistant: Not Required per policy Allergies No Known Allergies Allergy (Verified 02/11/25 13:56) Medication List - Last Reconciled 02/11/25 by Krysten Gage MD albuterol sulfate 90 mcg/actuation 1 puff inhalation QID PRN famotidine (Pepcid) 20 mg PO DAILY lancets (KnowmiaTouch Delica Plus Lancet) test blood sugar twice a day lidocaine 5% 1 patch topical DAILY metformin ER 1,500 mg (2 x 750 mg) PO DAILY olmesartan 5 mg PO DAILY OneTouch Ultra Test (blood sugar diagnostic) tid NS Ozempic (semaglutide) 0.5 mg (0.736 mL) subcut QWEEK NS pen needle, diabetic Use to inject insulin once a day sertraline 50 mg PO DAILY Tobacco use date assessed: 02/11/25 Dental Screening Dental Screen Date: 01/10/25 HPI 1 month f/up HPI Details Pt presents for f/u DM 2, HTN, stable on medications. Patient's insurance did not cover duloxetine. She is interested in trying different medications. Patient is getting established with a counselor. She reports anxiety and depression but denies suicide ideation. Patient complains of increased urinary frequency and right flank pain but no hematuria dysuria abdominal pain nausea vomiting fever chills PFSH Medical History Bilateral foot pain Bilateral swelling of feet Bilateral hand pain Swelling of hand Surgical History No pertinent past surgical history Family History Father Hx of CABG, Onset Age: 55 Maternal Grandfather Mental health disorder Maternal Grandmother Mental health disorder Mother Breast CA, Onset Age: 60 Other Hx of autoimmune disorder Social History Household Members Other:: , works at [employer] Housing: Apartment Patient Tobacco Use Status: Never used Tobacco e-Cigarette/Vaping Use: Never Used service: No Current occupational status: employed Current occupation: [employer] Cognitive needs: No Hearing needs: No Vision needs: Yes Questionnaire Thrive Questionnaire Date Thrive assessed: 01/10/25 I am a: Patient What is your living situation today?: I have a place to live, but I am worried about losing it in the future Within the past 12 months, did the food you bought not last and you didn't have the money to get more?: Sometimes True Within the past 12 months, did you worry whether your food would run out before you got money to buy more?: Sometimes True Do you have trouble paying for medicines?: Yes Do you have trouble getting transportation to medical appointments?: No Do you have trouble paying your heating and electricity bill?: No Do you have trouble taking care of your child, family member or friend?: No Do you have trouble with day-to-day activities such as bathing, preparing meals, shopping, managing finances, etc.?: No Are you currently unemployed and looking for a job?: No Are you interested in more education?: No Currently or been in a relationship where the following occur: No concerns reported THRIVE Score: 3 CLAY-7 AMB Questionnaire CLAY-7 Date CLAY - 7 assessed: 01/10/25 Source: Developed by Drs. Neri Persaud, Sindhu Austin, Darrell Serrano and colleagues, with an educational carmen from [employer]. Review of Systems Const All systems reviewed & are unremarkable except as noted in HPI and below Reports no additional complaints Eyes Reports no additional complaints ENT Reports no additional complaints Card Reports no additional complaints Resp Reports no additional complaints GI Reports no additional complaints Reports no additional complaints Physical exam (Primary Care) Vital Signs: Last Vital Signs Temp 98.2 F 02/11/25 13:51 Pulse 78 02/11/25 13:51 Resp 18 02/11/25 13:51 BP 122/78 02/11/25 13:51 Pulse Ox 96 02/11/25 13:51 Oxygen Delivery Method Room Air 02/11/25 13:51 BMI result Body Mass Index 30.9 Tobacco/Smoking Status: Tobacco use Status Tobacco use date assessed 02/11/25 02/11/25 14:00 Patient Tobacco Use Status Never used Tobacco 02/11/25 14:00 e-Cigarette/Vaping Use Never Used 02/11/25 14:00 Thrive Assessment: Date of Thrive Assessment Date Thrive assessed 01/10/25 02/11/25 14:00 Currently or been in a relationship where the following occur: No concerns reported Const General: no acute distress HENMT Head: Yes normal to inspection Face and sinus: Yes normal facial exam Throat: Yes posterior oropharynx normal Eyes General: appearance normal, both eyes and all related structures Neck Neck: Yes no lymphadenopathy and Yes supple Cardio Rhythm: regular rhythm Heart sounds: S1 normal heart sound present and S2 normal heart sound present GI Inspection: Yes normal to inspection Palpation (GI): Soft to palpation Percussion: Yes normal to percussion Auscultation: normal bowel sounds Back/Spine/Pelvis Other: Paraspinal tenderness lower lumbar region right more than left, straight leg rising 90 degrees bilaterally. Results AMB Urinalysis, Automated UA Leukoctes 0 Fabricio/uL Last Edit by SURESH Mckenna on 02/11/25 14:46 UA Nitrite Negative Last Edit by Kristen Martinez Leeanna on 02/11/25 14:46 UA Urobilinogen 1 mg/dL Last Edit by Kristen Martinez Leeanna on 02/11/25 14:46 UA Protein 0 mg/dL Last Edit by Kristen Martinez Leeanna on 02/11/25 14:46 UA pH 6.0 Last Edit by Kristen Martinez [facility] on 02/11/25 14:46 UA Blood 0 Christian/uL Last Edit by SURESH Mckenna on 02/11/25 14:46 UA Specific [place] 1.030 Last Edit by SURESH Mckenna on 02/11/25 14:46 UA Ketone Negative Last Edit by SURESH Mckenna on 02/11/25 14:46 UA Bilirubin 0 mg/dL Last Edit by SURESH Mckenna on 02/11/25 14:46 UA Glucose 0 mg/dL Last Edit by SURESH Mckenna on 02/11/25 14:46 Coding Diagnoses Type 2 diabetes mellitus with hyperglycemia, with long-term current use of insulin E11.65; Z79.4 Diabetes mellitus care home insulin use: with terminal computer operator use Diabetes mellitus complication status: with hyperglycemia UTI (urinary tract infection) N39.0 Multinodular goiter E04.2 Anxiety and depression F41.9; F32.A Assessment & Plan Assessment & Plan (1) DM type 2 (diabetes mellitus, type 2): Code(s): E11.9 - Type 2 diabetes mellitus without complications Category: Medical Qualifiers: Diabetes mellitus care home insulin use: with care home use Diabetes mellitus complication status: with hyperglycemia Qualified Code(s): E11.65 - Type 2 diabetes mellitus with hyperglycemia; Z79.4 - manager intermediate (current) use of insulin Plan: A1C was 5.8, ADA diet, regular exercise, continue current medications discussed with the patient follow-up in 4 months (2) UTI (urinary tract infection): Code(s): N39.0 - Urinary tract infection, site not specified Category: Medical Plan: Macrobid is prescribed check urine culture (3) Multinodular goiter: Comment: us 02/07/2025 multinodular goiter Code(s): E04.2 - Nontoxic multinodular goiter Category: Medical Plan: Refer to endocrinology (4) Anxiety and depression: Comment: Patient is being referred to a counselor 01/10/2025 Code(s): F41.9 - Anxiety disorder, unspecified; F32.A - Depression, unspecified Category: Medical Plan: Start sertraline 50 mg a day and patient will start counseling Orders: Orders AMB Urinalysis Automated Today Z13.9 - Encounter for screening, unspecified Lipid Panel 4 Months E11.65 - Type 2 diabetes mellitus with hyperglycemia, I10 - Essential (primary) hypertension, Z79.4 - long-term (current) use of insulin Complete Blood Count Auto Diff 4 Months E11.65 - Type 2 diabetes mellitus with hyperglycemia, I10 - Essential (primary) hypertension, Z79.4 - manager intermediate (current) use of insulin UA w Microscopic Today N39.0 - Urinary tract infection, site not specified Urine Culture Today N39.0 - Urinary tract infection, site not specified Comprehensive [place]. Panel Fast 4 Months E11.65 - Type 2 diabetes mellitus with hyperglycemia, I10 - Essential (primary) hypertension, Z79.4 - manager intermediate (current) use of insulin Hemoglobin A1c 4 Months E11.65 - Type 2 diabetes mellitus with hyperglycemia, I10 - Essential (primary) hypertension, Z79.4 - manager intermediate (current) use of insulin Referrals Endocrinology Referral E04.2 - Nontoxic multinodular goiter Medications: New sertraline 50 mg PO DAILY 90 tabs 2RF nitrofurantoin monohyd/m-cryst 100 mg (Macrobid) must administer with a meal/food 100 mg PO Q12H 7 days 14 caps 0RF Discontinued duloxetine (Cymbalta) Discontinued Reason: Doctor's Order 20 mg PO BID 90 caps 0RF
--- OUTSIDE RECORDS SUMMARY | 2025-02-11 16:22 | XMS_ITS | Clinical Summary ---
Author Organization Danita [facility] [facility] ity Address [address] [place] [address] Care Team Providers Care Firearms Model Maker Name Role Phone Unavailable Primary Care Provider [...]
== END 2025-02-11 15:29 | disposition home or self-care (01) ==
LOC: HO.HMCC 13:46
PROVIDERS: PCP Internal Medicine; Visit Provider Internal Medicine
DX: Z13.9 Encounter for screening, unspecified (principal)

== ENCOUNTER 2025-02-13 14:35 | Outpatient (AMB) | payer OTHER, SELFPAY ==
--- NOTE | 2025-02-13 14:44 | MHC.OFFVIS ---
Intake Visit Reasons: Right Knee Euflexxa #1 Intake Note: Kd is a 44 year old sao tomean speaking female who presents today for her first right knee euflexxa. Allergies No Known Allergies Allergy (Verified 02/11/25 13:56) HPI HPI Right Knee Euflexxa #1: Details: Here for right knee Euflexxa injection. PFSH Medical History Bilateral foot pain Bilateral swelling of feet Bilateral hand pain Swelling of hand Surgical History No pertinent past surgical history Family History Father Hx of CABG, Onset Age: 55 Maternal Grandfather Mental health disorder Maternal Grandmother Mental health disorder Mother Breast CA, Onset Age: 60 Other Hx of autoimmune disorder Social History Household Members Other:: , works at [employer] Housing: Apartment Patient Tobacco Use Status: Never used Tobacco e-Cigarette/Vaping Use: Never Used service: No Current occupational status: employed Current occupation: [employer] Cognitive needs: No Hearing needs: No Vision needs: Yes Physical Exam Extrem Other: Skin over the right knee clean dry and intact Office Procedures Joint Inj/Aspir; Non-Pain Clin Joint Injection/Drain Details: Injected Euflexxa. Site was prepped using aseptic technique. Patient tolerated the procedure well. Shoulders, Hips, Knees, Knee Large Joint Injection : Right Knee Coding Procedure code (CPT) selection complete Assessment & Plan Assessment & Plan (1) Bilateral primary osteoarthritis of knee: Comment: X-ray showed advanced osteoarthritis of both knees Code(s): M17.0 - Bilateral primary osteoarthritis of knee Category: Medical Plan: Euflexxa 1 of 3. No complications. F/u 1 week Coding Level of Care Code Est Pt Level 2 (15207) Diagnoses Bilateral primary osteoarthritis of knee M17.0 CPT Codes Shoulders, Hips, Knees, - Knee Large Joint Injection [id number]: Right Knee ([id number])
--- OUTSIDE RECORDS SUMMARY | 2025-02-13 16:06 | XMS_ITS | Clinical Summary ---
Author Organization Danita [employer] [facility] ity Address [address] [place] [address] Care Team Providers Care Duplicate Maker Name Role Phone Unavailable Primary Care [...]
== END 2025-02-13 15:03 | disposition home or self-care (01) ==
LOC: HO.HOS 14:35
PROVIDERS: PCP Internal Medicine; Visit Provider Orthopaedic Surgery
DX: M17.0 Bilateral primary osteoarthritis of knee (principal)
CPT/HCPCS: 20610

== ENCOUNTER → 2025-02-13 14:35 | Outpatient (BNVA) | payer OTHER, SELFPAY | PROVIDERS: PCP Internal Medicine; Visit Provider Orthopaedic Surgery | DX: M17.0 Bilateral primary osteoarthritis of knee (principal) | CPT/HCPCS: 20610; J7323 ==

== ENCOUNTER 2025-02-20 14:23 | Outpatient (AMB) | payer OTHER, SELFPAY ==
--- NOTE | 2025-02-20 14:29 | MHC.OFFVIS ---
Vital Signs 02/20/25 14:30 Height 5 ft 2 in Weight 162 lb BMI 29.6 Intake Visit Reasons: Right Knee Euflexxa #2 Intake Note: Kd is a 44 year old female who presents today for a Right Knee Euflexxa injection #2. Patient reports that she is having significantly increased pain. She is very anxious about repeating injection today Allergies No Known Allergies Allergy (Verified 02/11/25 13:56) HPI HPI Right Knee Euflexxa #2: Details: Here for Euflexxa 2. Moderate pain after the 1st injection but no evidence of allergic reaction or infection. [facility] Medical History Bilateral foot pain Bilateral swelling of feet Bilateral hand pain Swelling of hand Surgical History No pertinent past surgical history Family History Father Hx of CABG, Onset Age: 55 Maternal Grandfather Mental health disorder Maternal Grandmother Mental health disorder Mother Breast CA, Onset Age: 60 Other Hx of autoimmune disorder Social History Household Members Other:: , works at [employer] Housing: Apartment Patient Tobacco Use Status: Never used Tobacco e-Cigarette/Vaping Use: Never Used service: No Current occupational status: employed Current occupation: [employer] Cognitive needs: No Hearing needs: No Vision needs: Yes Physical Exam Vital Signs: BMI result Body Mass Index 29.6 Extrem Other: Skin clean dry and intact. Tenderness to palpation medial compartment with no effusion. No warmth. Office Procedures Joint Inj/Aspir; Non-Pain Clin Joint Injection/Drain Details: Injected Euflexxa. Site was prepped using aseptic technique. Patient tolerated the procedure well. Shoulders, Hips, Knees, Knee Large Joint Injection : Right Knee Coding Procedure code (CPT) selection complete Assessment & Plan Assessment & Plan (1) Osteoarthritis of knees, bilateral: Code(s): M17.0 - Bilateral primary osteoarthritis of knee Category: Medical Plan: Injected right knee. Follow up 1 week for 3 of 3 Coding Level of Care Code Est Pt Level 2 (63709) Diagnoses Osteoarthritis of knees, bilateral M17.0 CPT Codes Shoulders, Hips, Knees, - Knee Large Joint Injection : Right Knee ([id number])
[2025-02-20 14:30] VITALS: BMI 29.6
--- OUTSIDE RECORDS SUMMARY | 2025-02-20 17:08 | XMS_ITS | Clinical Summary ---
Author Organization Danita [facility] ity Address [address] [place] [address] Care Team Providers Care Bulk Sugar Handler Name Role Phone Unavailable Primary Care Provider [...] Vaccine (2023-2 5 season) 2024 Influenza Vaccine (Season Ended) 2025 HIB Vaccines Aged Out No longer eligi [...] age to complete this topic Meningococcal B Vaccine Aged Out No l onger eligible based on patient's age to complete [...]
== END 2025-02-20 15:05 | disposition home or self-care (01) ==
LOC: HO.HOS 14:24
PROVIDERS: PCP Internal Medicine; Visit Provider Orthopaedic Surgery
DX: M17.0 Bilateral primary osteoarthritis of knee (principal)
CPT/HCPCS: 20610

== ENCOUNTER → 2025-02-20 14:23 | Outpatient (BNVA) | payer OTHER, SELFPAY | PROVIDERS: PCP Internal Medicine; Visit Provider Orthopaedic Surgery | DX: M17.0 Bilateral primary osteoarthritis of knee (principal) | CPT/HCPCS: 20610; J7323 ==

== ENCOUNTER 2025-02-27 14:27 | Outpatient (AMB) | payer OTHER, SELFPAY ==
[2025-02-27 14:37] VITALS: BMI 29.6
--- NOTE | 2025-02-27 14:37 | MHC.OFFVIS ---
Vital Signs 02/27/25 14:37 Height 5 ft 2 in Weight 162 lb BMI 29.6 Intake Visit Reasons: Right Knee Euflexxa #3 Intake Note: Kd is a 44 year old female who presents today for Right Knee Euflexxa #3 Patient reportss that she is not yet feeling any relief from the injections Allergies No Known Allergies Allergy (Verified 02/11/25 13:56) HPI HPI Right Knee Euflexxa #3: Details: Here for injection 3.. No change PFSH Medical History Bilateral foot pain Bilateral swelling of feet Bilateral hand pain Swelling of hand Surgical History No pertinent past surgical history Family History Father Hx of CABG, Onset Age: 55 Maternal Grandfather Mental health disorder Maternal Grandmother Mental health disorder Mother Breast CA, Onset Age: 60 Other Hx of autoimmune disorder Social History Household Members Other:: , works at [employer] Housing: Apartment Patient Tobacco Use Status: Never used Tobacco e-Cigarette/Vaping Use: Never Used service: No Current occupational status: employed Current occupation: [employer] Cognitive needs: No Hearing needs: No Vision needs: Yes Physical Exam Vital Signs: BMI result Body Mass Index 29.6 Extrem Other: Skin clean dry and intact Office Procedures Joint Inj/Aspir; Non-Pain Clin Joint Injection/Drain Details: Injected Euflexxa. Site was prepped using aseptic technique. Patient tolerated the procedure well. Shoulders, Hips, Knees, Knee Large Joint Injection : Right Knee Coding Procedure code (CPT) selection complete Assessment & Plan Assessment & Plan (1) Bilateral primary osteoarthritis of knee: Comment: X-ray showed advanced osteoarthritis of both knees Code(s): M17.0 - Bilateral primary osteoarthritis of knee Category: Medical Plan: Injected Euflexxa 01/13. Follow up 6 weeks for eval. Coding Level of Care Code Est Pt Level 2 (00045) Diagnoses Bilateral primary osteoarthritis of knee M17.0 CPT Codes Shoulders, Hips, Knees, - Knee Large Joint Injection 63777: Right Knee ([id number])
--- OUTSIDE RECORDS SUMMARY | 2025-02-27 17:32 | XMS_ITS | Clinical Summary ---
Author Organization Danita [employer] [facility] ity Address [address] [place] [address] Care Team Providers Care Can Machine Operator Name Role Phone Unavailable Primary Care Provider [...]
== END 2025-02-27 15:14 | disposition home or self-care (01) ==
LOC: HO.HOS 14:27
PROVIDERS: PCP Internal Medicine; Visit Provider Orthopaedic Surgery
DX: M17.0 Bilateral primary osteoarthritis of knee (principal)
CPT/HCPCS: 20610

== ENCOUNTER → 2025-02-27 14:27 | Outpatient (BNVA) | payer OTHER, SELFPAY | PROVIDERS: PCP Internal Medicine; Visit Provider Orthopaedic Surgery | DX: M17.0 Bilateral primary osteoarthritis of knee (principal) | CPT/HCPCS: 20610; J7323 ==

== ENCOUNTER 2025-04-03 13:10 | Outpatient (AMB) | payer OTHER, SELFPAY ==
--- OUTSIDE RECORDS SUMMARY | 2025-04-03 13:15 | XMS_ITS | Clinical Summary ---
Author Organization Danita [employer] [facility] ity Address [address] [place] [address] Care Team Providers Care Rail Transportation Tabeler Name Role Phone Unavailable Primary Care Provider [...]
--- NOTE | 2025-04-03 13:31 | MHC.OFFVIS ---
Intake Visit Reasons: OV - Right knee f/u s/p Euflexxa Intake Note: Kd is a 44 year old female who presents today for a follow up of her right knee s/p Right Knee Euflexxa Series. Allergies No Known Allergies Allergy (Verified 02/11/25 13:56) HPI HPI OV - Right knee f/u s/p Euflexxa: Details: Kd is a 44 year old female who presents today for a follow up of her right knee s/p Right Knee Euflexxa Series. She did not get significant relief from injections., She continues to struggle with pain. She has radiographically moderate to severe knee OA R>L. She is diabetic and suffers from anxiety. We have discussed operative treatments but she is too young and feels like she has pain everywhere . [facility] Medical History Bilateral foot pain Bilateral swelling of feet Bilateral hand pain Swelling of hand Surgical History No pertinent past surgical history Family History Father Hx of CABG, Onset Age: 55 Maternal Grandfather Mental health disorder Maternal Grandmother Mental health disorder Mother Breast CA, Onset Age: 60 Other Hx of autoimmune disorder Social History Household Members Other:: , works at [employer] Housing: Apartment Patient Tobacco Use Status: Never used Tobacco e-Cigarette/Vaping Use: Never Used service: No Current occupational status: employed Current occupation: [employer] Cognitive needs: No Hearing needs: No Vision needs: Yes Physical Exam Const General: cooperative, healthy appearing, no acute distress, well developed and alert HEENT Head: Yes normal to inspection, Yes normocephalic and Yes atraumatic Mouth: moist mucous membranes Eyes General: appearance normal, both eyes and all related structures EOM: EOMs intact bilaterally Chest Other: no audible wheezing. Resp Other: No audible wheezing Effort & Inspection: normal respiratory effort Back/Spine/Pelvis Cervical Spine: normal cervical lordosis Skin General skin exam: no rashes or lesions noted Neuro General: no focal motor deficits Extrem Other: Varus knee alignment with ttp bilateral medial compartments Psych Appearance: grossly normal and well kempt Mental Status: mental status grossly normal Speech and movement: Normal speech and movement present Affect: normal affect Attitude: cooperative Assessment & Plan Assessment & Plan (1) Bilateral primary osteoarthritis of knee: Comment: X-ray showed advanced osteoarthritis of both knees Code(s): M17.0 - Bilateral primary osteoarthritis of knee Category: Medical Plan: 44 yo F with bilateral knee OA. Gel injections have not been helpful and we have elected to avoid cortisone given her DM. I discussed options with her. I still believe she is too young for TKA and she agrees. I recommend a referral to pain management for consideration of nerve stimulator. She can return to see me at any time but I would try to avoid surgery for now. Orders: Referrals Pain Management Referral M17.0 - Bilateral primary osteoarthritis of knee Coding Level of Care Code Est Pt Level 3 (38189) Diagnoses Bilateral primary osteoarthritis of knee M17.0
== END 2025-04-03 14:58 | disposition home or self-care (01) ==
LOC: HO.HOS 13:11
PROVIDERS: PCP Internal Medicine; Visit Provider Orthopaedic Surgery
DX: M17.0 Bilateral primary osteoarthritis of knee (principal)
CPT/HCPCS: 99213

== ENCOUNTER → 2025-04-03 13:10 | Outpatient (BNVA) | payer OTHER, SELFPAY | PROVIDERS: PCP Internal Medicine; Visit Provider Orthopaedic Surgery | DX: M17.0 Bilateral primary osteoarthritis of knee (principal) | CPT/HCPCS: 99212 ==

== ENCOUNTER 2025-04-18 09:06 | Outpatient (REF) | payer OTHER, SELFPAY ==
--- NOTE | ~2025-04-18 | MM_ITS ---
EXAMINATION: MM SCREENING DIGITAL BREAST TOMOSYNTHESIS, BILATERAL CLINICAL INFORMATION: Screening. Asymptomatic. COMPARISON: Mammography: Comparison is made with available priors TECHNIQUE: Digital breast mammography with tomosynthesis is performed in both the craniocaudal and mediolateral oblique views along with computer-aided detection (CAD). FINDINGS: There are scattered areas of fibroglandular density (ACR BI-RADS breast composition Category b). There are no significant masses, abnormal calcifications, or other abnormalities. MM/MM tomosynthesis screening BI IMPRESSION: No mammographic evidence of malignancy. ASSESSMENT: BI-RADS BI-RADS 1 - Negative RECOMMENDATION: Routine annual mammography screening. 1 year F/U This examination should not preclude the clinical evaluation of a suspicious palpable abnormality. This patient's information was entered into a reminder system with a target due date for their next mammogram. Electronically signed by: Shirley Mathew DO 04/22/2025 05:52 PM EDT
--- OUTSIDE RECORDS SUMMARY | 2025-04-18 09:30 | XMS_ITS | Clinical Summary ---
Author Organization Danita [employer] [facility] ity Address [address] [place] [address] Care Team Providers Care Blind Hooker Name Role Phone Unavailable Primary Care Provider [...]
== END 2025-04-18 09:07 | disposition home or self-care (01) ==
LOC: HO.MAMMO 09:06
PROVIDERS: PCP Internal Medicine; Visit Provider Internal Medicine
DX: Z12.31 Encounter for screening mammogram for malignant neoplasm of breast (principal)
CPT/HCPCS: 77063; 77067

== ENCOUNTER → 2025-04-18 09:30 | Outpatient (BNV) | payer OTHER, SELFPAY | PROVIDERS: PCP Internal Medicine; Visit Provider Internal Medicine | DX: Z12.31 Encounter for screening mammogram for malignant neoplasm of breast (principal) | CPT/HCPCS: 77063; 77067 ==

== ENCOUNTER 2025-04-25 13:16 | Outpatient (AMB) | payer OTHER, SELFPAY ==
--- NOTE | 2025-04-25 13:18 | A.OFFVIS_ITS ---
Vital Signs 04/25/25 13:25 Height 5 ft 2 in Weight 163 lb BMI 29.8 BP 146/81 H Blood Pressure Location Rt brachial Position Sitting Pulse 62 Pulse Source Pulse Oximeter Pulse Oximetry (%) 100 Intake Visit Reasons: Bilateral primary osteoarthritis of knee Intake Note: Pain today 8 Solderer Barrel Ribs Required: Yes Solderer Barrel Ribs Language: Vision Care Associate Name: Aravind- Spouse Accompanied by: Spouse Allergies No Known Allergies Allergy (Verified 02/11/25 13:56) HPI Comments Details: The patient is a 44-year-old female presenting with chronic bilateral knee pain secondary to osteoarthritis, which has been ongoing for 11 years post a fall. The primary source of pain is her right knee, affecting her daily activities and quality of life. Her attempts to alleviate pain through previous medical interventions like gel injections have been unsuccessful. Her diabetes is well managed with an A1C of 5.8, and current medication includes insulin, Ozempic and metformin. Despite the regular use of Tylenol, her pain level remains sig nificant, impacting her ability to perform activities such as climbing stairs. The patient has not yet participated in a recommended physical therapy regimen, which may contribute to weakened knee support muscles and increased joint discomfort. Prior efforts of pain management through gel injections did not result in notable improvements. She expresses interest in exploring further interventional treatments, including nerve stimulation or radiofrequency options, contingent on insurance coverage and diagnostic qualifications. - Onset: Approximately 11 years ago following a fall. - Quality: Described as severe, burning, stabbing, sharp, aching, tight with crepitus and pain interfering with daily ambulation and activities. Pain is constant, 10/10. - Location: Predominantly affects the right knee, with bilateral knee involvement. - Radiation: Pain extends to both medial and lateral aspects of the knees. - Exacerbating factors: Includes stair climbing and general activity leading to a consistent limp. - Alleviating factors: Application of cold provides some relief. - Interference: Pain impacts daily activities, especially those requiring significant knee use. - Affect: Pain negatively influences mobility and quality of life; potentially contributes to mood disturbances. - Analgesia: Currently using Tylenol; no significant relief reported. Celebrex has been prescribed for better analgesia targeting osteoarthritis-related inflammation. - Adverse Effects: No side effects reported from the usual pain medication. - Activities of Daily Living: Significant limitation due to pain, impacting ambulation and ability to climb stairs. - Aberrant Drug Related Behaviors: None reported or observed. [facility] Medical History Bilateral foot pain Bilateral swelling of feet Bilateral hand pain Swelling of hand Surgical History No pertinent past surgical history Family History Father Hx of CABG, Onset Age: 55 Maternal Grandfather Mental health disorder Maternal Grandmother Mental health disorder Mother Breast CA, Onset Age: 60 Other Hx of autoimmune disorder Social History Household Members Other:: , works at [employer] Housing: Apartment Patient Tobacco Use Status: Never used Tobacco e-Cigarette/Vaping Use: Never Used service: No Current occupational status: employed Current occupation: [employer] Cognitive needs: No Hearing needs: No Vision needs: Yes Review of Systems Const Details: - Musculoskeletal: Reports significant bilateral knee pain and joint stiffness; demonstrates a mild limp upon ambulation. - Endocrine: Denies any symptoms suggesting uncontrolled diabetes; diabetes is well-controlled. All systems reviewed & are unremarkable except as noted in HPI and below Physical Exam Vital Signs: Last Vital Signs Pulse 62 04/25/25 13:25 BP 146/81 H 04/25/25 13:25 Pulse Ox 100 04/25/25 13:25 BMI result Body Mass Index 29.8 General: Appears afebrile. Alert and oriented. Mood and affect appropriate. Follows and participates in conversation appropriately. Respiratory effort is unlabored. No cough. Able to transition from sit to stand unassisted. Ambulates with bilaterally normal heel strike and toe off. Extrem General: Yes capillary refill normal, Yes no clubbing, cyanosis or edema and Yes no calf tenderness Right lower extremity: knee (Limited ROM due to pain.) Details: normal to inspection, tenderness Location: of the medial joint line and of the lateral joint line and crepitus; no swelling, no ecchymosis and no unusual warmth Left lower extremity: knee (Limited ROM due to pain.) Details: normal to inspection, tenderness Location: of the medial joint line and of the lateral joint line and crepitus; no swelling, no ecchymosis and no unusual warmth Results Reviewed Results Reviewed: XR KNEE, LEFT XR KNEE, RIGHT 03/15/25 CLINICAL INFORMATION: Pain in unspecified knee COMPARISON: Bilateral knees 11/07/2023 TECHNIQUE: AP standing view both knees. Lateral and sunrise view of both knees. FINDINGS: The bones are intact. No joint effusion. There is marked narrowing of the medial and sunrise views with slight right lateral patellar tilt. Tricompartment marginal osteophytes are noted. Bone island in the proximal right femur is again noted. No abnormal soft tissue calcification. IMPRESSION: Marked bilateral osteoarthritis. Assessment & Plan Assessment & Plan (1) Knee pain, bilateral: Code(s): M25.561 - Pain in right knee; M25.562 - Pain in left knee Category: Medical (2) Bilateral primary osteoarthritis of knee: Comment: X-ray showed advanced osteoarthritis of both knees Code(s): M17.0 - Bilateral primary osteoarthritis of knee Category: Medical Plan Initiate treatment with Celebrex, monitoring for efficacy in pain reduction and inflammation management in relation to her knee osteoarthritis. Schedule a bilateral diagnostic saphenous nerve block with local and US guidance to determine candidacy for peripheral nerve stimulation with [employer]. Radiofrequency ablation remains a secondary option, providing potential prolonged analgesia for up to 12 months. Additional engagement in physical therapy will be revisited to enhance muscular support. All questions and concerns have been answered and patient agreed with the treatment plan. Follow-up after injections and sooner as needed. Patient was informed and verbally consented to the use of an ambient scribe for clinic note documentation during this visit. Orders: Orders PT Evaluation and Treatment 04/25/25 M17.0 - Bilateral primary osteoarthritis of knee, M25.561 - Pain in right knee, M25.562 - Pain in left knee Medications: New celecoxib (Celebrex) Take it with food and full glass of water. 200 mg PO BID 30 days PRN 60 caps 0RF pain M17.0 - Bilateral primary osteoarthritis of knee, M25.561 - Pain in right knee, M25.562 - Pain in left knee Patient Instructions: I thoroughly discussed the potential use of Celebrex with the patient, emphasizing its benefits in reducing inflammation and pain related to osteoarthritis. I explained the nerve block procedure and its purpose in evaluating eligibility for peripheral nerve stimulation. We reviewed radiofrequency ablation, including its mechanism, recovery, and long-term effects. We also discussed the essential need for engaging in physical therapy to strengthen knee-supporting muscles as a non-surgical management strategy. Consent was obtained for the initial use of Celebrex with plans for further procedural considerations pending diagnostic outcomes. Coding Level of Care Code New Pt Level 4 (07229) Diagnoses Knee pain, bilateral M25.561; M25.562 Bilateral primary osteoarthritis of knee M17.0
[2025-04-25 13:25] VITALS: BP 146/81; PULSE 62; O2SAT 100; BMI 29.8
--- OUTSIDE RECORDS SUMMARY | 2025-04-25 13:37 | XMS_ITS | Clinical Summary ---
Author Organization [facility] ity Address [address] [place] [address] Care Team Providers Care Pressroom Foreman Name Role Phone Unavailable Primary Care Provider [...]
== END 2025-04-25 14:08 | disposition home or self-care (01) ==
LOC: HO.PMC 13:18
PROVIDERS: PCP Internal Medicine; Visit Provider Nurse Practitioner Family
DX: M25.561 Pain in right knee (principal); M25.562 Pain in left knee; M17.0 Bilateral primary osteoarthritis of knee
CPT/HCPCS: 99204

== ENCOUNTER → 2025-04-25 13:16 | Outpatient (BNVA) | payer OTHER, SELFPAY | PROVIDERS: PCP Internal Medicine; Visit Provider Nurse Practitioner Family | DX: M17.0 Bilateral primary osteoarthritis of knee (principal); M25.561 Pain in right knee; M25.562 Pain in left knee | CPT/HCPCS: 99202 ==

== ENCOUNTER 2025-05-23 10:48 | Outpatient (AMB) | payer OTHER, SELFPAY ==
--- NOTE | 2025-05-23 10:55 | A.OFFVIS_ITS ---
Vital Signs 05/23/25 10:56 Height 5 ft 2 in Weight 165 lb 5.547 oz BMI 30.2 BP 110/66 Blood Pressure Location Rt brachial Position Sitting Pulse 68 Pulse Source Pulse Oximeter Pulse Oximetry (%) 99 Oxygen Delivery Method Room Air Intake Visit Reasons: Nontoxic multinodular goiter Intake Note: New patient present today for Nontoxic multinodular goiter. Inside Sales Trainer Required: Yes Inside Sales Trainer Language: Reverberatory Skimmer Services: Inside Sales Trainer Present Inside Sales Trainer Name: Magnus [id number] Information Interpreted: non-clinical & clinical Accompanied by: Self / Same As Patient Allergies No Known Allergies Allergy (Verified 05/23/25 10:57) Medication List - Last Reconciled 05/23/25 by Meli Field MD albuterol sulfate 90 mcg/actuation 1 puff inhalation QID PRN celecoxib (Celebrex) 200 mg PO BID PRN 30 days famotidine (Pepcid) 20 mg PO DAILY lancets (OneTouch Delica Plus Lancet) test blood sugar twice a day lidocaine 5% 1 patch topical DAILY metformin ER 1,500 mg (2 x 750 mg) PO DAILY nitrofurantoin monohyd/m-cryst 100 mg (Macrobid) 100 mg PO Q12H 7 days olmesartan 5 mg PO DAILY OneTouch Ultra Test (blood sugar diagnostic) tid NS Ozempic (semaglutide) 0.5 mg (0.736 mL) subcut QWEEK NS pen needle, diabetic Use to inject insulin once a day sertraline 50 mg PO DAILY HPI Comments Details: 44-year-old female here today for initial evaluation of nontoxic multinodular goiter. Ultrasound of the thyroid 02/07/2025, I reviewed the images myself which showed multiple bilateral nodules, a 2.1 cm isthmus solid isoechoic TR 3 nodule, a 2.8 cm right upper pole solid isoechoic TR 3 nodule, a right midpole 0.8 cm solid isoechoic nodule with rim calcification, TR 4 category, a right lower pole 1.9 cm solid isoechoic nodule with microcalcifications, TR 4 category, a left lower pole 2.1 cm solid isoechoic nodule with microcalcifications, TR 4 category. Normal-appearing lymph nodes noted in the left neck. Normal TSH from January 2025 Patient currently denies heat or cold intolerance, palpitation, anxiety, weight changes, mood changes, , changes in appearance of eyes or vision changes, tremors, increased diaphoresis .? Reports tiredness. reports constipation reports hair loss and dry skin. reports difficulty swallowing, since 4 years , sometimes feels choking sensation, worsening , it bothers her. some hoarseness. reports fullness in the neck. Patient denies any history of childhood neck radiation. Denies having ever used lithium, amiodarone or biotin supplements. Patient denies any family history of thyroid cancer or thyroid disease. works at [employer], heavy lifting. Physical exam General: sitting comfortably in no acute distress HEENT: normocephalic/atraumatic, Neck: supple, palpable 2 cm right-sided nodule, palpable 1-2 cm left-sided nodule Cardiac: normal heart sounds Pulm: normal breath sounds B/L, no added breath sounds Abd: not distended, no tenderness Extremities: no edema, no signs of myxedema Neuro: AAO x3, Speech: normal, no facial droop, moving all 4 extremities Laboratory Tests 02/07/25 07:17 TSH 0.69 EXAMINATION: US THYROID 02/07/25 HISTORY: E04.9 - Nontoxic goiter, unspecified TECHNIQUE: Real-time grayscale ultrasound imaging was performed and images were reviewed. COMPARISON: There are no prior studies for comparison. FINDINGS: SIZE: The right thyroid lobe measures 7.2 x 2.4 x 2.5 cm. The left thyroid lobe measures 7.6 x 1.9 x 2.8 cm. The isthmus measures 9 mm. FLOW: Flow to the gland is normal. ECHOGENICITY: The echotexture of the gland is heterogeneous. NODULES: Multiple nodules are seen bilaterally, the largest of which are enumerated below: Nodule #: 1 Location: Isthmus measuring 1.8 x 1.1 x 2.1 cm. Shape: Wider than tall (0 points) Margins: Ill-defined (0 points) Echotexture: Isoechoic (1 point) Composition: Solid (2 points) Calcifications: None (0 points) Total points: 3 TIRADS: TR3: Mildly suspicious. Nodule #: 2 Location: Right upper pole measuring 2.8 x 1.5 x 2.0 cm. Shape: Wider than tall (0 points) Margins: Ill-defined (0 points) Echotexture: Isoechoic (1 point) Composition: Mostly solid (2 points) Calcifications: None (0 points) Total points: 3 TIRADS: TR3: Mildly suspicious. Nodule #: 3 Location: Midportion of the right thyroid lobe measuring 0.8 x 0.8 x 0.8 cm. Shape: Round (0 points) Margins: Smooth (0 points) Echotexture: Isoechoic (1 point) Composition: Solid (2 points) Calcifications: Rim calcification (2 points) Total points: 5 TIRADS: TR4: Moderately suspicious. Nodule #: 4 Location: Right lower pole measuring 1.9 x 1.3 x 1.7 cm. Shape: Wider than tall (0 points) Margins: Ill-defined (0 points) Echotexture: Isoechoic (1 point) Composition: Mostly solid (2 points) Calcifications: Macrocalcifications (1 point) Total points: 4 TIRADS: TR4: Moderately suspicious. Nodule #: 5 Location: Left lower pole measuring 2.1 x 1.8 x 1.8 cm. Shape: Wider than tall (0 points) Margins: Ill-defined (0 points) Echotexture: Isoechoic (1 point) Composition: Mostly solid (2 points) Calcifications: Macrocalcifications (1 point) Total points: 4 TIRADS: TR4: Moderately suspicious. US/US thyroid IMPRESSION: Multiple bilateral thyroid nodules as described. Per ACR guidelines below, fine-needle aspiration of the bilateral lower pole nodules should be considered. The other nodules could be followed. [facility] Medical History Bilateral foot pain Bilateral swelling of feet Bilateral hand pain Swelling of hand Surgical History No pertinent past surgical history Family History Father Hx of CABG, Onset Age: 55 Maternal Grandfather Mental health disorder Maternal Grandmother Mental health disorder Mother Breast CA, Onset Age: 60 Other Hx of autoimmune disorder Social History Household Members Other:: , works at [employer] Housing: Apartment Patient Tobacco Use Status: Never used Tobacco e-Cigarette/Vaping Use: Never Used service: No Current occupational status: employed Current occupation: [employer] Cognitive needs: No Hearing needs: No Vision needs: Yes Assessment & Plan Assessment & Plan (1) Multinodular goiter: Comment: us 02/07/2025 multinodular goiter Code(s): E04.2 - Nontoxic multinodular goiter Category: Medical Plan: 44-year-old female with no family history of thyroid cancer, with no personal history of head or neck radiation coming in today to establish care for nontoxic multinodular goiter. Ultrasound of the thyroid 02/07/2025, I reviewed the images myself which showed multiple bilateral nodules, a 2.1 cm isthmus solid isoechoic TR 3 nodule, a 2.8 cm right upper pole solid isoechoic TR 3 nodule, a right midpole 0.8 cm solid isoechoic nodule with rim calcification, TR 4 category, a right lower pole 1.9 cm solid isoechoic nodule with microcalcifications, TR 4 category, a left lower pole 2.1 cm solid isoechoic nodule with microcalcifications, TR 4 category. Normal-appearing lymph nodes noted in the left neck. Normal TSH from January 2025 She does have quite a bit of compressive symptoms that she is complaining about. She has multiple nodules that need to be biopsied, and I think even if her biopsy results are benign she would benefit from a surgical consultation because of her compressive symptoms. However at this time we will 1st biopsy the nodules that need to be biopsied. I will 1st do the right superior 2.8 cm and the right inferior 1.9 cm nodules, and then at a later appointment we can do the left lower 2.1 cm nodule. I explained that it is common to have thyroid nodules. About 95% of the time these nodules are benign. However if the nodule is > 1 cm in size or suspicious on ultrasound then a fine need aspiration biopsy is recommended. We discussed that a FNAB involves 4-5 passes with a small gauge needle and material obtained is sent off for cytology.If the cytopathology is benign then the nodule will be followed annually with repeat ultrasounds. However if it is suspicious or malignant, we will need to discuss further management. Indeterminate cytology can be further investigated with repeat FNA, genetic testing or empiric lobectomy. Malignant cytology is managed with either lobectomy or total thyroidectomy. We discussed briefly that thyroid cancer is, in most patients, an indolent disease that does not affect mortality. We will arrange for FNA of the right superior 2.8 cm and the right inferior 1.9 cm thyroid nodules at next available opening and patient will follow up with me in clinic thereafter for results and further decision making. Plan: -scheduled for FNA of the right superior 2.8 cm and the right inferior 1.9 cm thyroid nodules and a follow up 2 weeks after to discuss results Plan I spent 45 minutes in reviewing the record, seeing the patient and documenting in the medical record. Orders: Orders US biopsy thyroid Today E04.2 - Nontoxic multinodular goiter Coding Level of Care Code New Pt Level 4 (54934) Diagnoses Multinodular goiter E04.2 Time Spent (min) 45
[2025-05-23 10:56] VITALS: BP 110/66; PULSE 68; O2SAT 99; BMI 30.2
--- OUTSIDE RECORDS SUMMARY | 2025-05-23 11:26 | XMS_ITS | Clinical Summary ---
Author Organization [facility] ity Address [address] [place] [address] Care Team Providers Care Construction Millwright Name Role Phone Unavailable Primary Care Provider [...] (2023-2 5 season) 2024 Influenza Vaccine (#1) 2025 HIB Vaccines Aged Out No longer [...] 5 Years) and At-Risk Patients (6 to 49 Years) Aged Out No longer eligible b ased on patient's age to complete this topic RSV Immunization Patients Un alvaro 20 months Aged Out No longer eligible b ased on patient's age to complete this topic Varicella Vaccines Aged Out No longer eligible based on patient's age to complete this topic
== END 2025-05-23 11:50 | disposition home or self-care (01) ==
LOC: HO.ENCR 10:49
PROVIDERS: PCP Internal Medicine; Visit Provider Student in an Organized Health Care Education/Training Program
DX: E04.2 Nontoxic multinodular goiter (principal)
CPT/HCPCS: 99204

== ENCOUNTER → 2025-05-23 10:48 | Outpatient (BNVA) | payer OTHER, SELFPAY | PROVIDERS: PCP Internal Medicine; Visit Provider Student in an Organized Health Care Education/Training Program | DX: E04.2 Nontoxic multinodular goiter (principal) | CPT/HCPCS: 99202 ==

== ENCOUNTER 2025-06-04 09:42 | Outpatient (REF) | payer OTHER, SELFPAY ==
--- OUTSIDE RECORDS SUMMARY | 2025-06-04 10:16 | XMS_ITS | Clinical Summary ---
[facility] [address] [place] [address] Care Team Providers Care Hoop Driving Machine Operator Name Role Phone Unavailable Primary [...] 1999 COVID-19 Vaccine (2023-2 5 season) 2024 Depression Screening 11/13/2024 Influenza Vaccine (#1) 2025 HIB Vaccines Aged [...]
--- NOTE | 2025-06-04 10:38 | PM.PROC ---
Brief Operative Note Date of procedure: 06/04/25 Pre-op diagnosis: right superior 2.8 cm and right inferior 1.9 cm thyroid nodule FNA biopsy Post-op diagnosis: same Procedure: THYROID FINE NEEDLE ASPIRATION PROCEDURE NOTE ? PROCEDURE PERFORMED: Ultrasound-guided FNA of thyroid nodule ? OPERATORS: Dr. Meli Field ? INDICATION: right superior 2.8 cm and right inferior 1.9 cm thyroid nodules; FNA performed to assess for malignancy ? DESCRIPTION OF PROCEDURE: The indications for FNA (to assess for malignancy) were reviewed with the patient in detail. Potential complications (e.g., bleeding, infection, damage to local structures, absence of clear diagnosis after FNA) were reviewed. Alternatives to FNA including conservative observation or surgery were described. The patient understood and agreed to proceed. This was documented by the signing of the written informed consent form. A time-out was performed to confirm the patient's identity and the site of planned FNA. The nodules of interest were identified using ultrasound (14 MHz linear array probe). The sites of FNA were then draped in the usual fashion and carefully cleaned and prepared using alcohol swabs. The skin at the previously-identified site of needle insertion was iced and sprayed with numbing spray. first for the right superior 2.8 cm thyroid nodule , Under ultrasound guidance, _4_ passes were performed using a 1.5-inch, 25-gauge needle, and sample was obtained via capillary action. The needle tip was clearly visualized to be within the nodule at the time of sampling for _4_ of 4__ passes Then for the right inferior 1.9 cm thyroid nodule , Under ultrasound guidance, _4_ passes were performed using a 1.5-inch, 25-gauge needle, and sample was obtained via capillary action. The needle tip was clearly visualized to be within the nodule at the time of sampling for _4_ of 4__ passes The patient tolerated the procedure well. There were no immediate complications. A small adhesive bandage was applied, and the patient was advised to take acetaminophen (rather than NSAIDs) for any discomfort and to report any signs of inflammation/infection or marked swelling. IMPRESSION: Technically successful ultrasound-guided fine needle aspiration of right superior 2.8 cm and right inferior 1.9 cm thyroid nodules. PLAN: The patient was advised that I will provide follow-up regarding the cytology result and any subsequent plans. Meli Field MD Endocrinology Attending Condition: stable Disposition: same day
== END 2025-06-04 09:43 | disposition home or self-care (01) ==
LOC: HO.US 09:42
PROVIDERS: PCP Internal Medicine; Visit Provider Student in an Organized Health Care Education/Training Program
DX: E04.2 Nontoxic multinodular goiter (principal)
CPT/HCPCS: 10005; 10006; 88173; 88305

== ENCOUNTER → 2025-06-04 09:42 | Outpatient (BNV) | payer OTHER, SELFPAY | PROVIDERS: PCP Internal Medicine; Visit Provider Student in an Organized Health Care Education/Training Program | DX: E04.2 Nontoxic multinodular goiter (principal) | CPT/HCPCS: 10005; 10006 ==

== ENCOUNTER 2025-06-13 12:43 | Outpatient (AMB) | payer OTHER, SELFPAY ==
--- OUTSIDE RECORDS SUMMARY | 2025-06-13 12:46 | XMS_ITS | Clinical Summary ---
[facility] [address] [place] [address] Care Team Providers Care Diplomatic Interpreter/Translator Name Role Phone Unavailable Primary Care Provider [...]
[2025-06-13 13:04] VITALS: BP 124/74; PULSE 63; RESP 18; TEMP 36.9; O2SAT 100; BMI 29.8
--- NOTE | 2025-06-13 13:04 | MHC.PC.OV ---
Vital Signs 06/13/25 13:04 Height 5 ft 2 in Weight 163 lb BMI 29.8 BP 124/74 Blood Pressure Location Lt brachial Position Sitting Respiration 18 Pulse 63 Pulse Source Pulse Oximeter Temp 98.5 F Temp Source Oral Pulse Oximetry (%) 100 Oxygen Delivery Method Room Air Intake Visit Reasons: 4m follow up Intake Note: Pt is here today for 4 months follow up visit. Allergies No Known Allergies Allergy (Verified 06/13/25 13:05) Medication List - Last Reconciled 06/13/25 by Krysten Gage MD albuterol sulfate 90 mcg/actuation 1 puff inhalation QID PRN celecoxib (Celebrex) 200 mg PO BID PRN 30 days famotidine (Pepcid) 20 mg PO DAILY lancets (lemonade.ukTouch Delica Plus Lancet) test blood sugar twice a day lidocaine 5% 1 patch topical DAILY metformin ER 1,500 mg (2 x 750 mg) PO DAILY olmesartan 5 mg PO DAILY OneTouch Ultra Test (blood sugar diagnostic) tid NS Ozempic (semaglutide) 0.5 mg (0.736 mL) subcut QWEEK NS pen needle, diabetic Use to inject insulin once a day sertraline 50 mg PO DAILY Tobacco use date assessed: 06/13/25 Dental Screening Dental Screen Date: 06/13/25 Did you have a dental visit in the last 12 months?: Yes Did you have a dental problem in the last 6 months where you did not have access to dental care?: No Was dental information given to patient?: Patient has dentist HPI 4m follow up HPI Details Pt presents for f/u DM 2, HTN, anxiety and depression, stable on meds. Patient has been seeing a therapist for 4 sessions but reports persistent anxiety and feeling down and sad. She denies suicide ideation and has been able to work. Patient complains of frequent insomnia. She has been tolerating Ozempic 0.5 mg well and lost 10 lb. Type 2 diabetes has been well-controlled [facility] Medical History DM type 2 (diabetes mellitus, type 2) Hypertension Anxiety and depression Multinodular goiter Bilateral foot pain Bilateral swelling of feet Bilateral hand pain Swelling of hand Surgical History No pertinent past surgical history Family History Father Hx of CABG, Onset Age: 55 Maternal Grandfather Mental health disorder Maternal Grandmother Mental health disorder Mother Breast CA, Onset Age: 60 Other Hx of autoimmune disorder Social History Household Members Other:: , works at [employer] Housing: Apartment Patient Tobacco Use Status: Never used Tobacco e-Cigarette/Vaping Use: Never Used service: No Current occupational status: employed 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 1. Little interest or pleasure in doing things: nearly every day 2. Feeling down, depressed, or hopeless: nearly every day 3. Trouble falling or staying asleep, or sleeping too much: nearly every day 4. Feeling tired or having little energy: nearly every day 5. Poor appetite or overeating: nearly every day 6. Feeling bad about yourself - or that you are a failure or have let yourself or your family down: nearly every day 7. Trouble concentrating on things, such as reading the newspaper or watching television: nearly every day 8. Moving or speaking so slowly that other people could have noticed. Or the opposite - being so fidgety or restless that you have been moving around a lot more than usual: nearly every day 9. Thoughts that you would be better off or of hurting yourself in some way: nearly every day Total score: 27 Depression Screening Interpretation: Positive (established with therapist, increase sertraline to 100 mg and add trazodone PRN) Depression Screening Follow-up: Existing condition, In treatment and Change in Medication Depression Screening Done: Yes 06568 - PHQ-9 Billing: Yes Source: Developed by Drs. Neri Persaud, Sindhu Austin, Darrell Serrano and colleagues, with an educational carmen from [employer]. Thrive Questionnaire Date Thrive assessed: 01/10/25 I am a: Patient What is your living situation today?: I have a place to live, but I am worried about losing it in the future Within the past 12 months, did the food you bought not last and you didn't have the money to get more?: Sometimes True Within the past 12 months, did you worry whether your food would run out before you got money to buy more?: Sometimes True Do you have trouble paying for medicines?: Yes Do you have trouble getting transportation to medical appointments?: No Do you have trouble paying your heating and electricity bill?: No Do you have trouble taking care of your child, family member or friend?: No Do you have trouble with day-to-day activities such as bathing, preparing meals, shopping, managing finances, etc.?: No Are you currently unemployed and looking for a job?: No Are you interested in more education?: No Currently or been in a relationship where the following occur: No concerns reported THRIVE Score: 3 CLAY-7 AMB Questionnaire CLAY-7 Date CLAY - 7 assessed: 06/13/25 Feeling nervous, anxious, or on edge: 3 = Nearly every day Not being able to stop or control worryin = Nearly every day Worrying too much about different things: 3 = Nearly every day Trouble relaxin = Nearly every day Being so restless that it is hard to sit still: 3 = Nearly every day Becoming easily annoyed or irritable: 3 = Nearly every day Feeling afraid as if something awful might happen: 3 = Nearly every day Total CLAY-7 score (0-4 normal; 5-9 mild; 10-14 moderate; 15-21 severe): 21 Source: Developed by Drs. Neri Persaud, Sindhu Austin, Darrell Serrano and colleagues, with an educational carmen from [employer]. CLAY-7 Assessment Billing CLAY-7 Assessment Tool: CLAY-7 Assessment 97294 Review of Systems Const All systems reviewed & are unremarkable except as noted in HPI and below Reports no additional complaints Eyes Reports no additional complaints ENT Reports no additional complaints Card Reports no additional complaints Resp Reports no additional complaints GI Reports no additional complaints Reports no additional complaints Physical exam (Primary Care) Vital Signs: Last Vital Signs Temp 98.5 F 06/13/25 13:04 Pulse 63 06/13/25 13:04 Resp 18 06/13/25 13:04 BP 124/74 06/13/25 13:04 Pulse Ox 100 06/13/25 13:04 Oxygen Delivery Method Room Air 06/13/25 13:04 BMI result Body Mass Index 29.8 Tobacco/Smoking Status: Tobacco use Status Tobacco use date assessed 06/13/25 06/13/25 13:05 Patient Tobacco Use Status Never used Tobacco 06/13/25 13:05 e-Cigarette/Vaping Use Never Used 06/13/25 13:05 PHQ-9: PHQ-9 Score PHQ-9: Total score 27 06/13/25 14:01 Depression Screening Interpretation: Positive (established with therapist, increase sertraline to 100 mg and add trazodone PRN) Depression Screening Follow-up: Existing condition, In treatment and Change in Medication Thrive Assessment: Date of Thrive Assessment Date Thrive assessed 01/10/25 06/13/25 13:05 Currently or been in a relationship where the following occur: No concerns reported Const General: no acute distress HENMT Head: Yes normal to inspection Mouth: Normal oral and palatal mucosa present Eyes General: appearance normal, both eyes and all related structures Neck Neck: Yes no lymphadenopathy and Yes supple Resp Effort & Inspection: normal respiratory effort Auscultation: clear to auscultation bilaterally Cardio Rhythm: regular rhythm Heart sounds: S1 normal heart sound present and S2 normal heart sound present GI Inspection: Yes normal to inspection Palpation (GI): Soft to palpation Percussion: Yes normal to percussion Auscultation: normal bowel sounds Coding Level of Care Code Est Pt Level 4 (85427) Complex EM visit Add On G2211 Diagnoses Anxiety and depression F41.9; F32.A Type 2 diabetes mellitus with hyperglycemia, with long-term current use of insulin E11.65; Z79.4 Diabetes mellitus complication status: with hyperglycemia Diabetes mellitus strategic marketing specialist insulin use: with strategic marketing specialist use Multinodular goiter E04.2 Hypertension I10 Additional Codes CLAY-7 Assessment Billing - CLAY-7 Assessment Tool: CLAY-7 Assessment 29748 ([id number]) PHQ-9 - 81347 - PHQ-9 Billing: Yes ([id number]) Assessment & Plan Assessment & Plan (1) Anxiety and depression: Comment: Patient is being referred to a counselor 01/10/2025 Code(s): F41.9 - Anxiety disorder, unspecified; F32.A - Depression, unspecified Category: Medical Plan: cont counseling and increase Sertraline to 100 mg and add trazodone (2) DM type 2 (diabetes mellitus, type 2): Code(s): E11.9 - Type 2 diabetes mellitus without complications Category: Medical Qualifiers: Diabetes mellitus complication status: with hyperglycemia Diabetes mellitus correction insulin use: with correction use Qualified Code(s): E11.65 - Type 2 diabetes mellitus with hyperglycemia; Z79.4 - FDC (current) use of insulin Plan: A1c is 5.8, increase Ozempic to 1 mg weekly and decrease metformin to 750 mg daily. Patient was advised to continue monitor her blood glucose continue ADA diet and regular physical activity. Follow-up in 3 months (3) Multinodular goiter: Comment: us 02/07/2025 multinodular goiter, f/u with Endo Code(s): E04.2 - Nontoxic multinodular goiter Category: Medical Plan: f/u with Endo, (4) Hypertension: Code(s): I10 - Essential (primary) hypertension Category: Medical Plan: Continue olmesartan Orders: Orders Hemoglobin A1c 3 Months E11.65 - Type 2 diabetes mellitus with hyperglycemia, F32.A - Depression, unspecified, F41.9 - Anxiety disorder, unspecified, I10 - Essential (primary) hypertension, Z79.4 - FDC (current) use of insulin Lipid Panel 3 Months E11.65 - Type 2 diabetes mellitus with hyperglycemia, F32.A - Depression, unspecified, F41.9 - Anxiety disorder, unspecified, I10 - Essential (primary) hypertension, Z79.4 - test engine evaluator (current) use of insulin Microalbumin, Random (w Creat) 3 Months E11.65 - Type 2 diabetes mellitus with hyperglycemia, F32.A - Depression, unspecified, F41.9 - Anxiety disorder, unspecified, I10 - Essential (primary) hypertension, Z79.4 - test engine evaluator (current) use of insulin Comprehensive [place]. Panel Fast 3 Months E11.65 - Type 2 diabetes mellitus with hyperglycemia, F32.A - Depression, unspecified, F41.9 - Anxiety disorder, unspecified, I10 - Essential (primary) hypertension, Z79.4 - FDC (current) use of insulin Complete Blood Count Auto Diff 3 Months E11.65 - Type 2 diabetes mellitus with hyperglycemia, F32.A - Depression, unspecified, F41.9 - Anxiety disorder, unspecified, I10 - Essential (primary) hypertension, Z79.4 - test engine evaluator (current) use of insulin Medications: New trazodone 50 mg PO BEDTIME 90 tabs 0RF Ozempic (semaglutide) 1 mg (0.75 mL) subcut QWEEK 3 mL 3RF NS Changed From metformin ER 1,500 mg (2 x 750 mg) PO DAILY 180 tabs 1RF To metformin ER 750 mg PO DAILY 90 tabs 1RF Discontinued Ozempic (semaglutide) Discontinued Reason: Doctor's Order 0.5 mg (0.736 mL) subcut QWEEK 9 mL 0RF NS
== END 2025-06-13 14:18 | disposition home or self-care (01) ==
LOC: HO.HMCC 12:44
PROVIDERS: PCP Internal Medicine; Visit Provider Internal Medicine
DX: F41.9 Anxiety disorder, unspecified (principal); F32.A Depression, unspecified; E11.65 Type 2 diabetes mellitus with hyperglycemia; Z79.4 Long term (current) use of insulin; E04.2 Nontoxic multinodular goiter; I10 Essential (primary) hypertension

== ENCOUNTER → 2025-06-13 12:43 | Outpatient (BNVA) | payer OTHER, SELFPAY | PROVIDERS: PCP Internal Medicine; Visit Provider Internal Medicine | DX: F41.9 Anxiety disorder, unspecified (principal); F32.A Depression, unspecified; E11.65 Type 2 diabetes mellitus with hyperglycemia; E04.2 Nontoxic multinodular goiter; I10 Essential (primary) hypertension; Z79.4 Long term (current) use of insulin; Z79.84 Long term (current) use of oral hypoglycemic drugs; Z79.85 Long-term (current) use of injectable non-insulin antidiabetic drugs; Z79.899 Other long term (current) drug therapy; Z13.31 Encounter for screening for depression; Z13.39 Encounter for screening examination for other mental health and behavioral disorders | CPT/HCPCS: 96127; 99212 ==

== ENCOUNTER 2025-07-03 13:20 | Outpatient (AMB) | payer OTHER, SELFPAY ==
--- NOTE | 2025-07-03 13:23 | A.OFFVIS_ITS ---
Vital Signs 3 07/03/25 13:25 Height 5 ft 2 in Weight 165 lb 5.547 oz BMI 30.2 BP 126/80 Blood Pressure Location Rt brachial Position Sitting Pulse 65 Pulse Source Pulse Oximeter Pulse Oximetry (%) 99 Oxygen Delivery Method Room Air Intake Visit Reasons: Biopsy f/u Intake Note: Patient present today for biopsy follow up visit. L Irrigation Equipment Mechanic Required: Yes Irrigation Equipment Mechanic Language: Full Time Paramedic Services: Irrigation Equipment Mechanic Present Irrigation Equipment Mechanic Name: SURESH Fowler Accompanied by: Self / Same As Patient Allergies No Known Allergies Allergy (Verified 06/13/25 13:05) Medication List - Last Reconciled 07/03/25 by Meli Field MD albuterol sulfate 90 mcg/actuation 1 puff inhalation QID PRN celecoxib (Celebrex) 200 mg PO BID PRN 30 days famotidine (Pepcid) 20 mg PO DAILY lancets (OneTouch Delica Plus Lancet) test blood sugar twice a day lidocaine 5% 1 patch topical DAILY metformin ER 750 mg PO DAILY olmesartan 5 mg PO DAILY OneTouch Ultra Test (blood sugar diagnostic) tid NS Ozempic (semaglutide) 1 mg (0.75 mL) subcut QWEEK NS pen needle, diabetic Use to inject insulin once a day sertraline 50 mg PO DAILY trazodone 50 mg PO BEDTIME HPI Comments Details: 44-year-old female here today for follow up of nontoxic multinodular goiter. HPI Ultrasound of the thyroid 02/07/2025, I reviewed the images myself which showed multiple bilateral nodules, a 2.1 cm isthmus solid isoechoic TR 3 nodule, a 2.8 cm right upper pole solid isoechoic TR 3 nodule, a right midpole 0.8 cm solid isoechoic nodule with rim calcification, TR 4 category, a right lower pole 1.9 cm solid isoechoic nodule with microcalcifications, TR 4 category, a left lower pole 2.1 cm solid isoechoic nodule with microcalcifications, TR 4 category. Normal-appearing lymph nodes noted in the left neck. Normal TSH from January 2025 Patient currently denies heat or cold intolerance, palpitation, anxiety, weight changes, mood changes, , changes in appearance of eyes or vision changes, tremors, increased diaphoresis .? Reports tiredness. reports constipation reports hair loss and dry skin. reports difficulty swallowing, since 4 years , sometimes feels choking sensation, worsening , it bothers her. some hoarseness. reports fullness in the neck. Patient denies any history of childhood neck radiation. Denies having ever used lithium, amiodarone or biotin supplements. Patient denies any family history of thyroid cancer or thyroid disease. 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 Interval history 06/04/2025: Status post FNA of the right superior 2.8 cm nodule which came back as AUS with focal crowding, no nuclear atypia, [place] category 3, Afirma was benign, 4% risk of malignancy. Also status post FNA of the right inferior pole 1.9 cm nodule which came back as benign, [place] category 2. Physical exam General: sitting comfortably in no acute distress HEENT: normocephalic/atraumatic, Neck: supple, palpable 2 cm right-sided nodule, palpable 1-2 cm left-sided nodule Cardiac: normal heart sounds Pulm: normal breath sounds B/L, no added breath sounds Abd: not distended, no tenderness Extremities: no edema, no signs of myxedema Neuro: AAO x3, Speech: normal, no facial droop, moving all 4 extremities Laboratory Tests 02/07/25 07:17 TSH 0.69 EXAMINATION: US THYROID 02/07/25 HISTORY: E04.9 - Nontoxic goiter, unspecified TECHNIQUE: Real-time grayscale ultrasound imaging was performed and images were reviewed. COMPARISON: There are no prior studies for comparison. FINDINGS: SIZE: The right thyroid lobe measures 7.2 x 2.4 x 2.5 cm. The left thyroid lobe measures 7.6 x 1.9 x 2.8 cm. The isthmus measures 9 mm. FLOW: Flow to the gland is normal. ECHOGENICITY: The echotexture of the gland is heterogeneous. NODULES: Multiple nodules are seen bilaterally, the largest of which are enumerated below: Nodule #: 1 Location: Isthmus measuring 1.8 x 1.1 x 2.1 cm. Shape: Wider than tall (0 points) Margins: Ill-defined (0 points) Echotexture: Isoechoic (1 point) Composition: Solid (2 points) Calcifications: None (0 points) Total points: 3 TIRADS: TR3: Mildly suspicious. Nodule #: 2 Location: Right upper pole measuring 2.8 x 1.5 x 2.0 cm. Shape: Wider than tall (0 points) Margins: Ill-defined (0 points) Echotexture: Isoechoic (1 point) Composition: Mostly solid (2 points) Calcifications: None (0 points) Total points: 3 TIRADS: TR3: Mildly suspicious. Nodule #: 3 Location: Midportion of the right thyroid lobe measuring 0.8 x 0.8 x 0.8 cm. Shape: Round (0 points) Margins: Smooth (0 points) Echotexture: Isoechoic (1 point) Composition: Solid (2 points) Calcifications: Rim calcification (2 points) Total points: 5 TIRADS: TR4: Moderately suspicious. Nodule #: 4 Location: Right lower pole measuring 1.9 x 1.3 x 1.7 cm. Shape: Wider than tall (0 points) Margins: Ill-defined (0 points) Echotexture: Isoechoic (1 point) Composition: Mostly solid (2 points) Calcifications: Macrocalcifications (1 point) Total points: 4 TIRADS: TR4: Moderately suspicious. Nodule #: 5 Location: Left lower pole measuring 2.1 x 1.8 x 1.8 cm. Shape: Wider than tall (0 points) Margins: Ill-defined (0 points) Echotexture: Isoechoic (1 point) Composition: Mostly solid (2 points) Calcifications: Macrocalcifications (1 point) Total points: 4 TIRADS: TR4: Moderately suspicious. US/US thyroid IMPRESSION: Multiple bilateral thyroid nodules as described. Per ACR guidelines below, fine-needle aspiration of the bilateral lower pole nodules should be considered. The other nodules could be followed. [facility] Medical History DM type 2 (diabetes mellitus, type 2) Hypertension Anxiety and depression Multinodular goiter Bilateral foot pain Bilateral swelling of feet Bilateral hand pain Swelling of hand Surgical History (Updated 07/03/25 @ 13:28 by SURESH Fowler) Hx of ultrasound guided needle biopsy Family History Father Hx of CABG, Onset Age: 55 Maternal Grandfather Mental health disorder Maternal Grandmother Mental health disorder Mother Breast CA, Onset Age: 60 Other Hx of autoimmune disorder Social History Household Members Other:: , works at [employer] Housing: Apartment Patient Tobacco Use Status: Never used Tobacco e-Cigarette/Vaping Use: Never Used service: No Current occupational status: employed Current occupation: [employer] Cognitive needs: No Hearing needs: No Vision needs: Yes Physical Exam Vital Signs: Last Vital Signs Pulse 65 07/03/25 13:25 BP 126/80 07/03/25 13:25 Pulse Ox 99 07/03/25 13:25 Oxygen Delivery Method Room Air 07/03/25 13:25 BMI result Body Mass Index 30.2 Assessment & Plan Assessment & Plan (1) Multinodular goiter: Comment: us 02/07/2025 multinodular goiter, f/u with Endo Code(s): E04.2 - Nontoxic multinodular goiter Category: Medical Plan: 44-year-old female with no family history of thyroid cancer, with no personal history of head or neck radiation coming in today for follow up for nontoxic multinodular goiter. Ultrasound of the thyroid 02/07/2025, I reviewed the images myself which showed multiple bilateral nodules, a 2.1 cm isthmus solid isoechoic TR 3 nodule, a 2.8 cm right upper pole solid isoechoic TR 3 nodule, a right midpole 0.8 cm solid isoechoic nodule with rim calcification, TR 4 category, a right lower pole 1.9 cm solid isoechoic nodule with microcalcifications, TR 4 category, a left lower pole 2.1 cm solid isoechoic nodule with microcalcifications, TR 4 category. Normal-appearing lymph nodes noted in the left neck. Normal TSH from January 2025 She does have quite a bit of compressive symptoms that she is complaining about. She has multiple nodules that need to be biopsied, and I think even if her biopsy results are benign she would benefit from a surgical consultation because of her compressive symptoms. However at this time we will 1st biopsy the nodules that need to be biopsied. 06/04/2025: Status post FNA of the right superior 2.8 cm nodule which came back as AUS with focal crowding, no nuclear atypia, [place] category 3, Afirma was benign, 4% risk of malignancy. Also status post FNA of the right inferior pole 1.9 cm nodule which came back as benign, [place] category 2. I discussed with her benign results yield less than 3% risk of malignancy. At this point we will schedule her for FNA of the left lower 2.1 cm nodule. Plan: -scheduled for FNA of the left inferior 2.1 cm thyroid nodule a follow up 2 weeks after to discuss results Plan See above Orders: Orders 2 US biopsy thyroid Today E04.2 - Nontoxic multinodular goiter Coding Level of Care Code Est Pt Level 3 (13635) Diagnoses Multinodular goiter E04.2
[2025-07-03 13:25] VITALS: BP 126/80; PULSE 65; O2SAT 99; BMI 30.2
--- OUTSIDE RECORDS SUMMARY | 2025-07-03 13:32 | XMS_ITS | Clinical Summary ---
Author Organization [facility] Address [address] [place] [address] Care Team Providers Care Vendor Quality Supervisor Name Role Phone Unavailable Primary Care Provider [...]
== END 2025-07-03 13:41 | disposition home or self-care (01) ==
LOC: HO.ENCR 13:21
PROVIDERS: PCP Internal Medicine; Visit Provider Student in an Organized Health Care Education/Training Program
DX: E04.2 Nontoxic multinodular goiter (principal)
CPT/HCPCS: 99213

== ENCOUNTER → 2025-07-03 13:20 | Outpatient (BNVA) | payer OTHER, SELFPAY | PROVIDERS: PCP Internal Medicine; Visit Provider Student in an Organized Health Care Education/Training Program | DX: E04.2 Nontoxic multinodular goiter (principal) | CPT/HCPCS: 99212 ==

== ENCOUNTER 2025-07-09 08:47 | Outpatient (REF) | payer OTHER, SELFPAY ==
--- OUTSIDE RECORDS SUMMARY | 2025-07-09 09:13 | XMS_ITS | Clinical Summary ---
[facility] Organization [facility] Address [address] [place] [address] Care Team Providers Care Injection Molding Process Technician Name Role Phone Unavailable Primary Care Provider [...]
--- NOTE | 2025-07-09 09:29 | PCN2_ITS ---
Brief Operative Note Date of procedure: 07/09/25 Pre-op diagnosis: left lower 2.1 cm thyroid nodule FNA biopsy Post-op diagnosis: same Procedure: THYROID FINE NEEDLE ASPIRATION PROCEDURE NOTE ? PROCEDURE PERFORMED: Ultrasound-guided FNA of thyroid nodule ? OPERATORS: Dr. Meli Field ? INDICATION: left lower 2.1 cm thyroid nodule ; FNA performed to assess for malignancy ? DESCRIPTION OF PROCEDURE: The indications for FNA (to assess for malignancy) were reviewed with the patient in detail. Potential complications (e.g., bleeding, infection, damage to local structures, absence of clear diagnosis after FNA) were reviewed. Alternatives to FNA including conservative observation or surgery were described. The patient understood and agreed to proceed. This was documented by the signing of the written informed consent form. A time-out was performed to confirm the patient's identity and the site of planned FNA. The nodule of interest was identified using ultrasound (14 MHz linear array probe). The site of FNA was then draped in the usual fashion and carefully cleaned and prepared using alcohol swabs. The skin at the previously-identified site of needle insertion was iced and sprayed with numbing spray. Under ultrasound guidance, _4_ passes were performed using a 1.5-inch, 25-gauge needle, and sample was obtained via capillary action. The needle tip was clearly visualized to be within the nodule at the time of sampling for 4__ of _4_ passes [Insert image recorded as part of the procedure] The patient tolerated the procedure well. There were no immediate complications. A small adhesive bandage was applied, and the patient was advised to take aceta minophen (rather than NSAIDs) for any discomfort and to report any signs of inflammation/infection or marked swelling. IMPRESSION: Technically successful ultrasound-guided fine needle aspiration of left lower 2.1 cm thyroid nodule. PLAN: The patient was advised that I will provide follow-up regarding the cytology result and any subsequent plans. Meli Field MD Endocrinology Attending Condition: stable Disposition: same day
== END 2025-07-09 08:48 | disposition home or self-care (01) ==
LOC: HO.US 08:47
PROVIDERS: PCP Internal Medicine; Visit Provider Student in an Organized Health Care Education/Training Program
DX: E04.2 Nontoxic multinodular goiter (principal)
CPT/HCPCS: 10005; 88173; 88305

== ENCOUNTER → 2025-07-09 08:47 | Outpatient (BNV) | payer OTHER, SELFPAY | PROVIDERS: PCP Internal Medicine; Visit Provider Student in an Organized Health Care Education/Training Program | DX: E04.1 Nontoxic single thyroid nodule (principal) | CPT/HCPCS: 10005 ==

== ENCOUNTER 2025-07-23 14:40 | Outpatient (AMB) | payer OTHER, SELFPAY ==
[2025-07-23 14:41] VITALS: BP 138/84; PULSE 66; O2SAT 96
--- NOTE | 2025-07-23 14:41 | A.OFFVIS_ITS ---
Vital Signs 3 07/23/25 14:41 Height 5 ft 2 in Weight 164 lb 3.91 oz BMI 30.0 BP 138/84 Blood Pressure Location Lt brachial Position Sitting Pulse 66 Pulse Source Pulse Oximeter Pulse Oximetry (%) 96 Oxygen Delivery Method Room Air Intake Visit Reasons: Biopsy f/u Intake Note: Patient present today for biopsy results. Regional Rehabilitation Director Required: Yes Regional Rehabilitation Director Language: Business And Services Instructor Services: Regional Rehabilitation Director Present Regional Rehabilitation Director Name: Jessie [id number] Information Interpreted: non-clinical & clinical Accompanied by: Self / Same As Patient Allergies No Known Allergies Allergy (Verified 07/23/25 14:45) Medication List - Last Reconciled 07/23/25 by Meli Field MD albuterol sulfate 90 mcg/actuation 1 puff inhalation QID PRN celecoxib (Celebrex) 200 mg PO BID PRN 30 days famotidine (Pepcid) 20 mg PO DAILY lancets (OneTouch Delica Plus Lancet) test blood sugar twice a day lidocaine 5% 1 patch topical DAILY metformin ER 750 mg PO DAILY olmesartan 5 mg PO DAILY OneTouch Ultra Test (blood sugar diagnostic) tid NS Ozempic (semaglutide) 1 mg (0.75 mL) subcut QWEEK NS pen needle, diabetic Use to inject insulin once a day sertraline 50 mg PO DAILY trazodone 50 mg PO BEDTIME HPI Comments Details: 44-year-old female here today for follow up of nontoxic multinodular goiter. HPI Ultrasound of the thyroid 02/07/2025, I reviewed the images myself which showed multiple bilateral nodules, a 2.1 cm isthmus solid isoechoic TR 3 nodule, a 2.8 cm right upper pole solid isoechoic TR 3 nodule, a right midpole 0.8 cm solid isoechoic nodule with rim calcification, TR 4 category, a right lower pole 1.9 cm solid isoechoic nodule with microcalcifications, TR 4 category, a left lower pole 2.1 cm solid isoechoic nodule with microcalcifications, TR 4 category. Normal-appearing lymph nodes noted in the left neck. Normal TSH from January 2025 Patient currently denies heat or cold intolerance, palpitation, anxiety, weight changes, mood changes, , changes in appearance of eyes or vision changes, tremors, increased diaphoresis .? Reports tiredness. reports constipation reports hair loss and dry skin. reports difficulty swallowing, since 4 years , sometimes feels choking sensation, worsening , it bothers her. some hoarseness. reports fullness in the neck. Patient denies any history of childhood neck radiation. Denies having ever used lithium, amiodarone or biotin supplements. Patient denies any family history of thyroid cancer or thyroid disease. 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 06/04/2025: Status post FNA of the right superior 2.8 cm nodule which came back as AUS with focal crowding, no nuclear atypia, [place] category 3, Afirma was benign, 4% risk of malignancy. Also status post FNA of the right inferior pole 1.9 cm nodule which came back as benign, [place] category 2. Interval history 07/09/2025 status post FNA of the left lower pole 2.1 cm nodule which came back as AUS, [place] category 3 with the occasional groups of follicular epithelial cells mixed in micro and macrofollicular arrangement with crowding and dark chromatin. Afirma came back as benign, 4% risk of malignancy. Physical exam General: sitting comfortably in no acute distress HEENT: normocephalic/atraumatic, Neck: supple, palpable 2 cm right-sided nodule, palpable 1-2 cm left-sided nodule Cardiac: normal heart sounds Pulm: normal breath sounds B/L, no added breath sounds Abd: not distended, no tenderness Extremities: no edema, no signs of myxedema Neuro: AAO x3, Speech: normal, no facial droop, moving all 4 extremities Laboratory Tests 02/07/25 07:17 TSH 0.69 EXAMINATION: US THYROID 02/07/25 HISTORY: E04.9 - Nontoxic goiter, unspecified TECHNIQUE: Real-time grayscale ultrasound imaging was performed and images were reviewed. COMPARISON: There are no prior studies for comparison. FINDINGS: SIZE: The right thyroid lobe measures 7.2 x 2.4 x 2.5 cm. The left thyroid lobe measures 7.6 x 1.9 x 2.8 cm. The isthmus measures 9 mm. FLOW: Flow to the gland is normal. ECHOGENICITY: The echotexture of the gland is heterogeneous. NODULES: Multiple nodules are seen bilaterally, the largest of which are enumerated below: Nodule #: 1 Location: Isthmus measuring 1.8 x 1.1 x 2.1 cm. Shape: Wider than tall (0 points) Margins: Ill-defined (0 points) Echotexture: Isoechoic (1 point) Composition: Solid (2 points) Calcifications: None (0 points) Total points: 3 TIRADS: TR3: Mildly suspicious. Nodule #: 2 Location: Right upper pole measuring 2.8 x 1.5 x 2.0 cm. Shape: Wider than tall (0 points) Margins: Ill-defined (0 points) Echotexture: Isoechoic (1 point) Composition: Mostly solid (2 points) Calcifications: None (0 points) Total points: 3 TIRADS: TR3: Mildly suspicious. Nodule #: 3 Location: Midportion of the right thyroid lobe measuring 0.8 x 0.8 x 0.8 cm. Shape: Round (0 points) Margins: Smooth (0 points) Echotexture: Isoechoic (1 point) Composition: Solid (2 points) Calcifications: Rim calcification (2 points) Total points: 5 TIRADS: TR4: Moderately suspicious. Nodule #: 4 Location: Right lower pole measuring 1.9 x 1.3 x 1.7 cm. Shape: Wider than tall (0 points) Margins: Ill-defined (0 points) Echotexture: Isoechoic (1 point) Composition: Mostly solid (2 points) Calcifications: Macrocalcifications (1 point) Total points: 4 TIRADS: TR4: Moderately suspicious. Nodule #: 5 Location: Left lower pole measuring 2.1 x 1.8 x 1.8 cm. Shape: Wider than tall (0 points) Margins: Ill-defined (0 points) Echotexture: Isoechoic (1 point) Composition: Mostly solid (2 points) Calcifications: Macrocalcifications (1 point) Total points: 4 TIRADS: TR4: Moderately suspicious. US/US thyroid IMPRESSION: Multiple bilateral thyroid nodules as described. Per ACR guidelines below, fine-needle aspiration of the bilateral lower pole nodules should be considered. The other nodules could be followed. [facility] Medical History DM type 2 (diabetes mellitus, type 2) Hypertension Anxiety and depression Multinodular goiter Bilateral foot pain Bilateral swelling of feet Bilateral hand pain Swelling of hand Surgical History Hx of ultrasound guided needle biopsy Family History Father Hx of CABG, Onset Age: 55 Maternal Grandfather Mental health disorder Maternal Grandmother Mental health disorder Mother Breast CA, Onset Age: 60 Other Hx of autoimmune disorder Social History Household Members Other:: , works at [employer] Housing: Apartment Patient Tobacco Use Status: Never used Tobacco e-Cigarette/Vaping Use: Never Used service: No Current occupational status: employed Current occupation: [employer] Cognitive needs: No Hearing needs: No Vision needs: Yes Physical Exam Vital Signs: Last Vital Signs Pulse 66 07/23/25 14:41 BP 138/84 07/23/25 14:41 Pulse Ox 96 07/23/25 14:41 Oxygen Delivery Method Room Air 07/23/25 14:41 BMI result Body Mass Index 30.0 Assessment & Plan Assessment & Plan (1) Multinodular goiter: Comment: us 02/07/2025 multinodular goiter, f/u with Endo Code(s): E04.2 - Nontoxic multinodular goiter Category: Medical Plan: 45-year-old female with no family history of thyroid cancer, with no personal history of head or neck radiation coming in today for follow up for nontoxic multinodular goiter. Ultrasound of the thyroid 02/07/2025, I reviewed the images myself which showed multiple bilateral nodules, a 2.1 cm isthmus solid isoechoic TR 3 nodule, a 2.8 cm right upper pole solid isoechoic TR 3 nodule, a right midpole 0.8 cm solid isoechoic nodule with rim calcification, TR 4 category, a right lower pole 1.9 cm solid isoechoic nodule with microcalcifications, TR 4 category, a left lower pole 2.1 cm solid isoechoic nodule with microcalcifications, TR 4 category. Normal-appearing lymph nodes noted in the left neck. Normal TSH from January 2025 06/04/2025: Status post FNA of the right superior 2.8 cm nodule which came back as AUS with focal crowding, no nuclear atypia, [place] category 3, Afirma was benign, 4% risk of malignancy. Also status post FNA of the right inferior pole 1.9 cm nodule which came back as benign, [place] category 2. 07/09/2025 status post FNA of the left lower pole 2.1 cm nodule which came back as AUS, [place] category 3 with the occasional groups of follicular epithelial cells mixed in micro and macrofollicular arrangement with crowding and dark chromatin. Afirma came back as benign, 4% risk of malignancy. She does have quite a bit of compressive symptoms that she is complaining about. And we discussed that she could potentially benefit from a surgical consultation to see if she would benefit from thyroidectomy. However at this time patient expressed that she has a lot going on and can not have surgery and would like to defer this to once things are a bit more settled for her. In that case at this time we will plan to repeat an ultrasound in 1 year. Plan: -ordered ultrasound of the thyroid to be done in June 2026 prior to follow up in July 2026 -ordered TSH at with a reflex free T4 to be done prior to follow up in July 2026 -patient will reach out to us if she has worsening of her compressive symptoms and would like a surgical referral Plan See above Orders: Orders 2 US thyroid 06/25/26 E04.2 - Nontoxic multinodular goiter TSH reflex Free T4 06/26/26 E04.2 - Nontoxic multinodular goiter Patient Instructions: Do ultrasound thyroid in June 2026, someone will call you to schedule this , please make sure this is done a few weeks prior to your next appointment with me Do thyroid blood work a few days prior to your next follow up with me H?gase jodie ecograf?a de tiroides en radha de 2025. Alguien le llamar? para programarla. Por favor, aseg?rese de que se realice unas semanas antes de villafuerte pr?xima dm conmigo. H?gase un an?lisis de opal de tiroides unos d?as antes de villafuerte pr?xima dm de seguimiento conmigo. Coding Level of Care Code Est Pt Level 3 (20550) Diagnoses Multinodular goiter E04.2
--- OUTSIDE RECORDS SUMMARY | 2025-07-23 17:52 | XMS_ITS | Clinical Summary ---
[facility] [address] [place] [address] Care Team Providers Care Associate Producer Name Role Phone Unavailable Primary Care Provider [...]
== END 2025-07-23 15:02 | disposition home or self-care (01) ==
LOC: HO.ENCR 14:40
PROVIDERS: PCP Internal Medicine; Visit Provider Student in an Organized Health Care Education/Training Program
DX: E04.2 Nontoxic multinodular goiter (principal)
CPT/HCPCS: 99213

== ENCOUNTER → 2025-07-23 14:40 | Outpatient (BNVA) | payer OTHER, SELFPAY | PROVIDERS: PCP Internal Medicine; Visit Provider Student in an Organized Health Care Education/Training Program | DX: E04.2 Nontoxic multinodular goiter (principal) | CPT/HCPCS: 99212 ==

== ENCOUNTER 2025-09-16 09:14 | Outpatient (AMB) | payer OTHER, SELFPAY ==
[2025-09-16 09:15] VITALS: BP 118/80; PULSE 61; RESP 17; TEMP 36.8; O2SAT 95; BMI 29.3
--- NOTE | 2025-09-16 09:15 | MHC.PC.OV ---
Vital Signs 09/16/25 09:15 Height 5 ft 2 in Weight 160 lb BMI 29.3 BP 118/80 Blood Pressure Location Rt brachial Position Sitting Respiration 17 Pulse 61 Pulse Source Pulse Oximeter Temp 98.2 F Temp Source Oral Pulse Oximetry (%) 95 Oxygen Delivery Method Room Air Intake Visit Reasons: Fever, sore throat, cough, congestion Intake Note: Pt is here today for a sick visit. Pt c/o fever sore throat, cough congestion, loosing her voice body aches since . Allergies No Known Allergies Allergy (Verified 09/16/25 09:18) Medication List - Last Reconciled 09/16/25 by Krysten Gage MD albuterol sulfate 90 mcg/actuation 1 puff inhalation QID PRN azithromycin For 250 mg dose pack: take 500 mg today (day 1), then 250 mg for 4 days (days 2-5) PO benzonatate 100 mg PO TID celecoxib (Celebrex) 200 mg PO BID PRN 30 days famotidine (Pepcid) 20 mg PO DAILY lancets (FreeDriveTouch Delica Plus Lancet) test blood sugar twice a day lidocaine 5% 1 patch topical DAILY metformin ER 750 mg PO DAILY olmesartan 5 mg PO DAILY OneTouch Ultra Test (blood sugar diagnostic) tid NS Ozempic (semaglutide) 1 mg (0.75 mL) subcut QWEEK NS pen needle, diabetic Use to inject insulin once a day sertraline 50 mg PO DAILY trazodone 50 mg PO BEDTIME Tobacco use date assessed: 09/16/25 Dental Screening Dental Screen Date: 06/13/25 HPI Fever, sore throat, cough, congestion HPI Details Pt c/o fever, sore throat, hoarseness, myalgia, productive cough with yellow sputum for 5 days. Patient denies shortness or breath or pleurisy. Type 2 diabetes is stable on current medications [facility] Medical History DM type 2 (diabetes mellitus, type 2) Hypertension Anxiety and depression Multinodular goiter Bilateral foot pain Bilateral swelling of feet Bilateral hand pain Swelling of hand Surgical History Hx of ultrasound guided needle biopsy Family History Father Hx of CABG, Onset Age: 55 Maternal Grandfather Mental health disorder Maternal Grandmother Mental health disorder Mother Breast CA, Onset Age: 60 Other Hx of autoimmune disorder Social History Household Members Other:: , works at [employer] Housing: Apartment Patient Tobacco Use Status: Never used Tobacco e-Cigarette/Vaping Use: Never Used service: No Current occupational status: employed Current occupation: [employer] Cognitive needs: No Hearing needs: No Vision needs: Yes Questionnaire Thrive Questionnaire Date Thrive assessed: 01/10/25 CLAY-7 AMB Questionnaire CLAY-7 Date CLAY - 7 assessed: 06/13/25 Source: Developed by Drs. Neri Persaud, Sindhu Austin, Darrell Serrano and colleagues, with an educational carmen from [id number]. Review of Systems Const All systems reviewed & are unremarkable except as noted in HPI and below Eyes Reports no additional complaints ENT Reports no additional complaints Card Reports no additional complaints Resp Reports no additional complaints GI Reports no additional complaints Physical exam (Primary Care) Vital Signs: Last Vital Signs Temp 98.2 F 09/16/25 09:15 Pulse 61 09/16/25 09:15 Resp 17 09/16/25 09:15 BP 118/80 09/16/25 09:15 Pulse Ox 95 09/16/25 09:15 Oxygen Delivery Method Room Air 09/16/25 09:15 BMI result Body Mass Index 29.3 Tobacco/Smoking Status: Tobacco use Status Tobacco use date assessed 09/16/25 09/16/25 09:18 Patient Tobacco Use Status Never used Tobacco 09/16/25 09:18 e-Cigarette/Vaping Use Never Used 09/16/25 09:18 Thrive Assessment: Date of Thrive Assessment Date Thrive assessed 01/10/25 09/16/25 09:18 Const General: no acute distress HENMT Head: Yes normal to inspection Ears: TM's normal bilaterally General nose exam: Abnormal mucous membranes and turbinates present erythematous Throat: Yes posterior oropharynx abnormal (erythema) and Yes postnasal drainage Eyes General: appearance normal, both eyes and all related structures Neck Neck: Yes lymphadenopathy (anterior and submandibular b/l) Resp Effort & Inspection: normal respiratory effort Auscultation: rhonchi Cardio Rhythm: regular rhythm Heart sounds: S1 normal heart sound present and S2 normal heart sound present Coding Level of Care Code Est Pt Level 3 (91167) Diagnoses Sinusitis J32.9 Assessment & Plan Assessment & Plan (1) Sinusitis: Code(s): J32.9 - Chronic sinusitis, unspecified Category: Medical Plan: Etelvina and Drake Hernadez prescribed and supportive care discussed with the patient. Medications: New benzonatate 100 mg PO TID 30 caps 0RF azithromycin For 250 mg dose pack: take 500 mg today (day 1), then 250 mg for 4 days (days 2-5) PO 6 tabs 0RF Refilled albuterol sulfate 90 mcg/actuation 1 puff inhalation QID PRN 6.7 grams 0RF shortness of breath or wheezing
--- OUTSIDE RECORDS SUMMARY | 2025-09-16 09:57 | XMS_ITS | Clinical Summary ---
[facility] [address] [place] [address] Care Team Providers Care Learning And Development Consultant Name Role Phone Unavailable Primary Care Provider [...] Cervical Cancer Screening: P ap Smear 1999 Depression Screening 11/13/2024 COVID-19 Vaccine (1 - 2023-2 5 season) 2025 Influenza Vaccine (#1) 2025 RSV Immunization Adult Patie nts (1 - 1-dose 75+ series) 2053 HIB Vaccines Aged Out No longer eligi [...]
== END 2025-09-16 09:41 | disposition home or self-care (01) ==
LOC: HO.HMCC 09:14
PROVIDERS: PCP Internal Medicine; Visit Provider Internal Medicine
DX: J32.9 Chronic sinusitis, unspecified (principal)

== ENCOUNTER → 2025-09-16 09:14 | Outpatient (BNVA) | payer OTHER, SELFPAY | PROVIDERS: PCP Internal Medicine; Visit Provider Internal Medicine | DX: E11.9 Type 2 diabetes mellitus without complications (principal); J32.9 Chronic sinusitis, unspecified | CPT/HCPCS: 99212 ==

== ENCOUNTER 2025-10-11 07:11 | Outpatient (REF) | payer OTHER, SELFPAY ==
--- OUTSIDE RECORDS SUMMARY | 2025-10-11 07:15 | XMS_ITS | Clinical Summary ---
[facility] Address [address] [place] [address] Care Team Providers Care Deep Tissue Massage Therapist Name Role Phone Unavailable Primary Care Provider [...] Depression Screening 11/13/2024 COVID-19 Vaccine (1 - 2024-2 6 season) 2025 Influenza Vaccine (#1) 2025 RSV [...]
[2025-10-11 11:15] LABS: MANUAL DIFF FLAG NO
[2025-10-11 11:19] LABS: Hematocrit 42.4 % (37.0-47.0); Hemoglobin 14.0 g/dl (12.0-16.0); Imm Gran Abs Auto 0.03 X10*3/uL (0.00-0.03); Imm Gran Pct Auto 0.4 % (0.0-0.4); Lymphocytes Absolute Auto 3.5 X10*3/uL (1.2-4.9); Mean Corpuscular HGB Conc 33.0 g/dl (31.0-35.0); Mean Corpuscular Hemoglobin 28.3 pg (27.0-33.0); Mean Corpuscular Volume 85.7 fL (80.0-98.0); NRBC Abs Auto 0.000 X10*3/uL (0.0-0.012); NRBC Pct Auto 0.0 /100WBC (0.0-0.2); Platelet Count 334 X10*3/uL (160-400); Red Blood Count 4.95 X10*6/uL (4.20-5.50); White Blood Count 8.4 X10*3/uL (4.8-10.8)
[2025-10-11 11:35] LABS: Alanine Aminotransferase 38 U/L (0-31); Albumin Level 4.4 g/dL (3.5-5.0); Alkaline Phosphatase 64 U/L (39-117); Anion Gap 12 (12-20); Aspartate Amino Transferase 33 U/L (5-31); Blood Urea Nitrogen 19 mg/dL (9-16); Calcium 8.9 mg/dL (8.4-10.2); Carbon Dioxide 23 mmol/L (22-29); Chloride 107 mmol/L (96-108); Cholesterol 168 mg/dL (<200); Estimated Glomerular Filt Rate > 60; HDL Cholesterol 48 mg/dL (>40); Potassium 4.5 mmol/L (3.3-5.1); Sodium 137 mmol/L (135-145); Total Protein 7.8 g/dL (6.5-8.0); Triglycerides 83 mg/dL (<150)
[2025-10-11 12:08] LABS: Microalbum/Creatinine Ratio Ur 6.7 ug/mg cr (<30)
== END 2025-10-11 07:12 | disposition home or self-care (01) ==
LOC: HO.HMGCLDS 07:11
PROVIDERS: PCP Internal Medicine; Visit Provider Internal Medicine
DX: E11.65 Type 2 diabetes mellitus with hyperglycemia (principal); I10 Essential (primary) hypertension; F41.9 Anxiety disorder, unspecified; F32.A Depression, unspecified; Z79.4 Long term (current) use of insulin
CPT/HCPCS: 36415; 80053; 80061; 82043; 82570; 83036; 85025

== ENCOUNTER 2025-10-17 12:51 | Outpatient (REF) | payer OTHER, SELFPAY ==
--- NOTE | ~2025-10-17 | XR_ITS ---
EXAMINATION: XR CHEST CLINICAL INFORMATION: R05.9 - Cough, unspecified COMPARISON: X-ray 07/02/2024 TECHNIQUE: 2 views of the chest were obtained. FINDINGS: The cardiomediastinal silhouette is within normal limits. The lungs are well expanded. There is no focal consolidation, edema, or effusion. No pneumothorax. No acute osseous abnormality. Thoracic spine spondylosis XR/XR chest 2V IMPRESSION: No acute process. Electronically signed by: Kwaku Zuluaga MD 10/17/2025 04:22 PM [facility]
[2025-10-17 16:15] LABS: Appearance Urine Clear; Glucose Urine UA Negative (Negative); PH 6.5 (5.0-9.0); Specific Gravity - Urine 1.020 (1.005-1.025); UMIC TRIGGER UA YES
== END 2025-10-17 12:52 | disposition home or self-care (01) ==
LOC: HO.HMGCX 12:51
PROVIDERS: PCP Internal Medicine; Visit Provider Internal Medicine
DX: I10 Essential (primary) hypertension (principal); R05.8 Other specified cough; J32.9 Chronic sinusitis, unspecified; F41.9 Anxiety disorder, unspecified; F32.A Depression, unspecified; N39.0 Urinary tract infection, site not specified; E11.65 Type 2 diabetes mellitus with hyperglycemia; Z79.4 Long term (current) use of insulin
CPT/HCPCS: 71046; 81001; 87086; 99212

== ENCOUNTER 2025-10-17 12:51 | Outpatient (AMB) | payer OTHER, SELFPAY ==
[2025-10-17 13:05] VITALS: BP 130/78; PULSE 60; RESP 16; TEMP 36.7; O2SAT 100; BMI 29.3
--- NOTE | 2025-10-17 13:05 | A.OFFPC_ITS ---
Vital Signs 10/17/25 13:05 Height 5 ft 2 in Weight 160 lb BMI 29.3 BP 130/78 Blood Pressure Location Rt brachial Position Sitting Respiration 16 Pulse 60 Pulse Source Pulse Oximeter Temp 98.1 F Temp Source Oral Pulse Oximetry (%) 100 Oxygen Delivery Method Room Air Intake Visit Reasons: 3 months f/up Intake Note: Pt is here today for 3 months follow up visit. Allergies No Known Allergies Allergy (Verified 10/17/25 13:10) Medication List - Last Reconciled 10/17/25 by Krysten Gage MD albuterol sulfate 90 mcg/actuation 1 puff inhalation QID PRN azithromycin For 250 mg dose pack: take 500 mg today (day 1), then 250 mg for 4 days (days 2-5) PO cefuroxime axetil 500 mg PO BID celecoxib (Celebrex) 200 mg PO BID PRN 30 days famotidine (Pepcid) 20 mg PO DAILY lancets (AirSense WirelessTouch Delica Plus Lancet) test blood sugar twice a day lidocaine 5% 1 patch topical DAILY metformin ER 750 mg PO DAILY olmesartan 5 mg PO DAILY OneTouch Ultra Test (blood sugar diagnostic) tid NS Ozempic (semaglutide) 1 mg (0.75 mL) subcut QWEEK NS pen needle, diabetic Use to inject insulin once a day sertraline 50 mg PO DAILY trazodone 50 mg PO BEDTIME Tobacco use date assessed: 10/17/25 Dental Screening Dental Screen Date: 06/13/25 HPI 3 months f/up HPI Details Pt presents for f/u DM2 , HTN. Pt c/o 1 week sore throat, fever, productive cough, with a green sputum, general malaise and body aches. she denies PND orthopnea pleurisy shortness or breath PFSH Medical History DM type 2 (diabetes mellitus, type 2) Hypertension Anxiety and depression Multinodular goiter Bilateral foot pain Bilateral swelling of feet Bilateral hand pain Swelling of hand Surgical History Hx of ultrasound guided needle biopsy Family History Father Hx of CABG, Onset Age: 55 Maternal Grandfather Mental health disorder Maternal Grandmother Mental health disorder Mother Breast CA, Onset Age: 60 Other Hx of autoimmune disorder Social History Household Members Other:: , works at [employer] Housing: Apartment Patient Tobacco Use Status: Never used Tobacco e-Cigarette/Vaping Use: Never Used service: No Current occupational status: employed Current occupation: [employer] Cognitive needs: No Hearing needs: No Vision needs: Yes Questionnaire Thrive Questionnaire Date Thrive assessed: 01/10/25 I am a: Patient What is your living situation today?: I have a place to live, but I am worried about losing it in the future Within the past 12 months, did the food you bought not last and you didn't have the money to get more?: Sometimes True Within the past 12 months, did you worry whether your food would run out before you got money to buy more?: Sometimes True Do you have trouble paying for medicines?: Yes Do you have trouble getting transportation to medical appointments?: No Do you have trouble paying your heating and electricity bill?: No Do you have trouble taking care of your child, family member or friend?: No Do you have trouble with day-to-day activities such as bathing, preparing meals, shopping, managing finances, etc.?: No Are you currently unemployed and looking for a job?: No Are you interested in more education?: No Currently or been in a relationship where the following occur: No concerns reported THRIVE Score: 3 CLAY-7 AMB Questionnaire CLAY-7 Date CLAY - 7 assessed: 06/13/25 Source: Developed by Drs. Neri Persaud, Sindhu Asutin, Darrell Serrano and colleagues, with an educational carmen from [employer]. Review of Systems Const All systems reviewed & are unremarkable except as noted in HPI and below Eyes Reports no additional complaints ENT Reports no additional complaints Card Reports no additional complaints Resp Reports no additional complaints GI Reports no additional complaints Reports no additional complaints Physical exam (Primary Care) Vital Signs: Last Vital Signs Temp 98.1 F 10/17/25 13:05 Pulse 60 10/17/25 13:05 Resp 16 10/17/25 13:05 BP 130/78 10/17/25 13:05 Pulse Ox 100 10/17/25 13:05 Oxygen Delivery Method Room Air 10/17/25 13:05 BMI result Body Mass Index 29.3 Tobacco/Smoking Status: Tobacco use Status Tobacco use date assessed 10/17/25 10/17/25 13:13 Patient Tobacco Use Status Never used Tobacco 10/17/25 13:06 e-Cigarette/Vaping Use Never Used 10/17/25 13:06 Thrive Assessment: Date of Thrive Assessment Date Thrive assessed 01/10/25 10/17/25 13:06 Currently or been in a relationship where the following occur: No concerns rep orted Const General: no acute distress HENMT Head: Yes normal to inspection Face and sinus: Yes normal facial exam Mouth: Normal oral and palatal mucosa present Throat: Yes posterior oropharynx normal Eyes General: appearance normal, both eyes and all related structures Neck Neck: Yes no lymphadenopathy and Yes supple Resp Effort & Inspection: normal respiratory effort Auscultation: crackles bilateral and diminished lung sounds Cardio Rhythm: regular rhythm Heart sounds: S1 normal heart sound present and S2 normal heart sound present GI Inspection: Yes normal to inspection Palpation (GI): Soft to palpation Percussion: Yes normal to percussion Auscultation: normal bowel sounds Coding Level of Care Code Est Pt Level 4 (47561) Diagnoses UTI (urinary tract infection) N39.0 Hypertension I10 Anxiety and depression F41.9; F32.A Type 2 diabetes mellitus with hyperglycemia, with long-term current use of insulin E11.65; Z79.4 Diabetes mellitus complication status: with hyperglycemia Diabetes mellitus intermediate card tender insulin use: with intermediate card tender use Sinusitis J32.9 Assessment & Plan Assessment & Plan (1) UTI (urinary tract infection): Code(s): N39.0 - Urinary tract infection, site not specified Category: Medical Plan: check UA and urine culture obtain bladder scan to evaluate for urinary retention (2) Hypertension: Code(s): I10 - Essential (primary) hypertension Category: Medical Plan: Continue current medications (3) Anxiety and depression: Comment: Patient is being referred to a counselor 01/10/2025 Code(s): F41.9 - Anxiety disorder, unspecified; F32.A - Depression, unspecified Category: Medical Plan: follow-up with a counselor and continue sertraline (4) DM type 2 (diabetes mellitus, type 2): Code(s): E11.9 - Type 2 diabetes mellitus without complications Category: Medical Qualifiers: Diabetes mellitus complication status: with hyperglycemia Diabetes mellitus detention insulin use: with intermediate card tender use Qualified Code(s): E11.65 - Type 2 diabetes mellitus with hyperglycemia; Z79.4 - intermediate card tender (current) use of insulin Plan: A1c is 5.6, continue current medications ADA diet regular physical activity (5) Sinusitis: Code(s): J32.9 - Chronic sinusitis, unspecified Category: Medical Plan: for recurrent sinusitis and bronchitis Z-Julien and cefuroxime are prescribed and chest x-ray will be obtained. Orders: Orders UA w Microscopic Today N39.0 - Urinary tract infection, site not specified Hemoglobin A1c 3 Months E11.65 - Type 2 diabetes mellitus with hyperglycemia, F32.A - Depression, unspecified, F41.9 - Anxiety disorder, unspecified, I10 - Essential (primary) hypertension, Z79.4 - intermediate card tender (current) use of insulin Comprehensive Randall. Panel Fast 3 Months E11.65 - Type 2 diabetes mellitus with hyperglycemia, F32.A - Depression, unspecified, F41.9 - Anxiety disorder, unspecified, I10 - Essential (primary) hypertension, Z79.4 - intermediate card tender (current) use of insulin Lipid Panel 3 Months E11.65 - Type 2 diabetes mellitus with hyperglycemia, F32.A - Depression, unspecified, F41.9 - Anxiety disorder, unspecified, I10 - Essential (primary) hypertension, Z79.4 - long-term (current) use of insulin Complete Blood Count Auto Diff 3 Months E11.65 - Type 2 diabetes mellitus with hyperglycemia, F32.A - Depression, unspecified, F41.9 - Anxiety disorder, unspecified, I10 - Essential (primary) hypertension, Z79.4 - long-term (current) use of insulin Urine Culture Today N39.0 - Urinary tract infection, site not specified US bladder Today R33.9 - Retention of urine, unspecified Microalbumin, Random (w Creat) 3 Months E11.65 - Type 2 diabetes mellitus with hyperglycemia, F32.A - Depression, unspecified, F41.9 - Anxiety disorder, unspec ified, I10 - Essential (primary) hypertension, Z79.4 - long-term (current) use of insulin UA w Microscopic 3 Months E11.65 - Type 2 diabetes mellitus with hyperglycemia, F32.A - Depression, unspecified, F41.9 - Anxiety disorder, unspecified, I10 - Essential (primary) hypertension, Z79.4 - intermediate card tender (current) use of insulin Medications: New cefuroxime axetil 500 mg PO BID 20 tabs 0RF benzonatate 100 mg PO TID PRN 30 caps 0RF cough azithromycin For 250 mg dose pack: take 500 mg today (day 1), then 250 mg for 4 days (days 2-5) PO 6 tabs 0RF
== END 2025-10-17 14:12 | disposition home or self-care (01) ==
LOC: HO.HMCC 12:52
PROVIDERS: PCP Internal Medicine; Visit Provider Internal Medicine
DX: I10 Essential (primary) hypertension (principal); E11.65 Type 2 diabetes mellitus with hyperglycemia; Z79.4 Long term (current) use of insulin; N39.0 Urinary tract infection, site not specified; F41.9 Anxiety disorder, unspecified; F32.A Depression, unspecified; J32.9 Chronic sinusitis, unspecified

== ENCOUNTER → 2025-10-17 13:59 | Outpatient (BNV) | payer OTHER, SELFPAY | PROVIDERS: PCP Internal Medicine; Visit Provider Radiology Diagnostic Ultrasound | DX: R05.9 Cough, unspecified (principal) | CPT/HCPCS: 71046 ==